=== PATIENT | female | born 1950 | race Caucasian/White ===

== ENCOUNTER → 2018-02-24 09:16 | Outpatient (CLI) | payer OTHER, MEDICARE, SELFPAY ==
--- NOTE | 2018-02-24 09:24 | XR_ITS ---
XR hand RT min 3V HISTORY: Right hand pain ITS.REASON: Trigger Finger ORDERING PHYSICIAN: Mario Alberto Wilder MD PATIENT AGE: 67 years COMPARISON: None FINDINGS: No fracture or dislocation. No calcified soft tissue lesions. There are mild osteoarthritic changes at the DIP of the second and third digits. IMPRESSION: No acute finding. 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
== END ==
PROVIDERS: PCP Family Medicine; Visit Provider Orthopaedic Surgery
DX: M79.641 Pain in right hand (principal)
CPT/HCPCS: 73130

== ENCOUNTER → 2018-05-11 10:12 | Outpatient (CLI) | payer OTHER, MEDICARE, SELFPAY ==
--- NOTE | 2018-05-11 10:18 | XR_ITS ---
XR ankle LT min 3V HISTORY: Recent fall with injury and pain, prior surgery ITS.REASON: LEFT ANKLE INJURY ORDERING PHYSICIAN: Mario Alberto Wilder MD PATIENT AGE: 67 years Comparison: 03/12/2017 FINDINGS: Prior ORIF with lateral bone plate at the fibula and 2 screws within the medial malleolus region. There remains good alignment with no evidence of fracture or dislocation. No hardware malfunction. Soft tissue swelling is present at the lateral malleolus region. IMPRESSION: 1. Soft tissue swelling laterally. 2. Prior ORIF with no significant change
--- NOTE | 2018-05-11 10:23 | XR_ITS ---
XR knee LT 4V HISTORY: Fall with pain and swelling ITS.REASON: left knee pain ORDERING PHYSICIAN: Mario Alberto Wilder MD PATIENT AGE: 67 years COMPARISON: 05/12/2017 FINDINGS: There has been prior total knee replacement with good alignment. No significant change with no acute finding. IMPRESSION: Prior total knee replacement with no acute finding
== END ==
PROVIDERS: PCP Family Medicine; Visit Provider Orthopaedic Surgery
DX: S99.912A Unspecified injury of left ankle, initial encounter (principal); M25.562 Pain in left knee
CPT/HCPCS: 73564; 73610

== ENCOUNTER 2018-07-08 09:30 | Outpatient (RCR) | payer OTHER, MEDICARE, SELFPAY ==
--- NOTE | 2018-05-12 14:07 | HMH.PTOPWND ---
Rehab Outpt Wound Evaluation Rehab OP Wound Evaluation Start: 05/12/18 13:16 Freq: Status: Active Protocol: Document 05/12/18 13:58 PHORHAL (Rec: 05/12/18 14:07 PHORNE [id number]) Electronically Signed By Ric Denise, PT 05/12/18 13:58 Subjective/History History History Pt is 67 yowf who presents ~ 4 days S/P fall at home with resulting left ankle sprain, edema, and ecchymosis. She reports mild/moderate pain with mobility and expected tenderness to palpation. SHe has hx of prior left ankle ORIF and left TKA. She also has PMH of DM-II, osteoporosis , and HTN. Subjective Subjective Significant edema collection surrounding the left lateral malleolus. Lymphedema Eval Classification of Lymphedema Post Traumatic Lymphedema Yes: ankle sprain Stemmer's sign Stemmer's Sign no Pain Scale Pain Scale (0-10) 5 Affected Extremities Areas Affected by Lymphedema/Edema Left Lower Extremity Manual Lymphatic Drainage Treatment Area MLD Treatment Area Left Lower Extremity Wound Problems/Impairments Impairments Problems/Impairmments Palpation Tenderness Impaired Walking Increased Edema Subjective C/O Pain Impaired Self Care/Self Management Prognosis Rehab Potential Good Clinical Impression Consistent with Diagnosis Yes Short Term Goals Number of Weeks 4 Decreased Palpation Tenderness Yes: to min Improve Gait Pattern with Assistive Yes Device Decrease Subjective C/O Pain Yes: 3/10 Decrease Girth Measurments by (cm) Yes: by 5 cm Financial Reporting Advisor Goals Number of Weeks 8 Decreased Palpation Tenderness Yes: to none Decrease Subjective C/O Pain Yes: 1/10 Patient to be Ind w/ HEP Yes Decrease Girth Measurments by (cm) Yes: by 15 cm Outpatient Therapy Plan of Care Treatment Plan May Include Therapeutic Exercise Including Home Yes Exercise Program Manual Therapy Techniques Yes Neuromuscular Re-education Yes Thermal Modalities Yes Electrical Stimulation Yes Ultrasound/Phonophoresis Yes Iontophoresis Yes Orthotics/Bracing/Splinting Yes Massage Yes Manual Lymphatic Drainage Yes Eval/Re-Eval
== END 2018-07-08 09:35 | disposition home or self-care (01) ==
LOC: PT 09:30
PROVIDERS: Family Provider Family Medicine; PCP Family Medicine; Visit Provider Orthopaedic Surgery
DX: S93.402A Sprain of unspecified ligament of left ankle, initial encounter (principal)
CPT/HCPCS: 97110; 97112; 97140; 97162; 97760

== ENCOUNTER → 2018-07-08 10:04 | Outpatient (CLI) | payer OTHER, MEDICARE, SELFPAY ==
[2018-07-08 10:42] LABS: Basophils # 0.1 K/mm3 (0-0.2); Basophils % 1.5 % (0.1-2.0); Eosinophils # 0.6 K/mm3 (0.0-0.4); Eosinophils % 7.5 % (0.1-12.0); Hemoglobin 15.5 g/dL (12.2-16.2); Lymphocytes # 2.2 K/mm3 (0.7-4.5); Lymphocytes % 26.9 % (10-50); Mean Corpuscular HGB Conc 32.4 g/dL (31.8-35.4); Mean Corpuscular Hemoglobin 31.9 pg (27.0-31.2); Mean Corpuscular Volume 98.4 fl (81-99); Mean Platelet Volume 7.4 fl (7.4-10.4); Monocytes # 0.3 K/mm3 (0.1-1.0); Neutrophils % 60.2 % (37.0-80.0); Platelet Count 345 K/mm3 (142-424); Red Blood Count 4.87 M/mm3 (4.20-5.40); Red Cell Distribution Width 14.3 % (11.5-17.5); White Blood Count 8.3 K/mm3 (4.8-10.8)
[2018-07-08 12:48] LABS: Anion Gap 15.7 mEq/L (5-15); Blood Urea Nitrogen 17 mg/dL (7-18); Calcium 9.8 mg/dL (8.5-10.1); Carbon Dioxide 27 mmol/L (21.0-32.0); Chloride 100 mmol/L (98-107); Creatinine,Serum 0.79 mg/dL (0.55-1.02); Estimated Glomerular Filt Rate 72 ml/min (>60); GFR (African American) 87 ML/MIN (>60); Glucose 159 mg/dL (74-106); Potassium 3.7 mmoL/L (3.5-5.1); Sodium 139 mmol/L (136-145)
== END ==
PROVIDERS: PCP Family Medicine; Visit Provider Orthopaedic Surgery
DX: Z01.818 Encounter for other preprocedural examination (principal); M79.641 Pain in right hand
CPT/HCPCS: 36415; 80048; 85025; 93005

== ENCOUNTER → 2019-03-30 09:42 | Outpatient (CLI) | payer OTHER, MEDICARE, SELFPAY ==
--- NOTE | 2019-03-30 10:12 | XR_ITS ---
XR chest 2V HISTORY: ITS.REASON: HTN, DM, PRE OP ORDERING PHYSICIAN: Naeem Robins MD PATIENT AGE: 68 years COMPARISON: 11/22/2016 FINDINGS: The cardiomediastinal silhouette pulmonary vascularity are within normal limits. The lungs are clear without infiltrates, suspicious nodules, or pleural effusions. There is moderate to severe wedging involving the T11 vertebral body similar to the previous exam. Postsurgical changes left shoulder IMPRESSION: No change with no acute finding
[2019-03-30 11:13] LABS: Basophils # 0.1 K/mm3 (0-0.2); Basophils % 1.8 % (0.1-2.0); Eosinophils # 0.6 K/mm3 (0.0-0.4); Eosinophils % 8.1 % (0.1-12.0); Hematocrit 48.1 % (37.0-47.0); Hemoglobin 15.8 g/dL (12.2-16.2); Lymphocytes # 2.5 K/mm3 (0.7-4.5); Lymphocytes % 34.7 % (10-50); Mean Corpuscular HGB Conc 32.7 g/dL (31.8-35.4); Mean Corpuscular Hemoglobin 32.3 pg (27.0-31.2); Mean Corpuscular Volume 98.8 fl (81-99); Mean Platelet Volume 7.6 fl (7.4-10.4); Monocytes # 0.4 K/mm3 (0.1-1.0); Monocytes % 5.9 % (1.7-9.3); Neutrophils # 3.5 K/mm3 (1.8-7.8); Neutrophils % 49.4 % (37.0-80.0); Platelet Count 352 K/mm3 (142-424); Red Blood Count 4.87 M/mm3 (4.20-5.40); Red Cell Distribution Width 14.2 % (11.5-17.5); White Blood Count 7.1 K/mm3 (4.8-10.8)
[2019-03-30 12:08] LABS: Anion Gap 11.3 mEq/L (5-15); Blood Urea Nitrogen 12 mg/dL (7-18); Calcium 9.7 mg/dL (8.5-10.1); Carbon Dioxide 30 mmol/L (21.0-32.0); Chloride 104 mmol/L (98-107); Creatinine,Serum 0.76 mg/dL (0.55-1.02); Estimated Glomerular Filt Rate 75 ml/min (>60); GFR (African American) 91 ML/MIN (>60); Glucose 116 mg/dL (74-106); Potassium 4.3 mmoL/L (3.5-5.1); Sodium 141 mmol/L (136-145)
[2019-03-30 14:50] LABS: Hemoglobin A1C 6.4 % (0.0-7.0)
== END ==
PROVIDERS: Visit Provider Orthopaedic Surgery
DX: Z01.818 Encounter for other preprocedural examination (principal); G56.01 Carpal tunnel syndrome, right upper limb
CPT/HCPCS: 36415; 71046; 80048; 83036; 85025; 93005

== ENCOUNTER → 2019-05-11 13:56 | Outpatient (CLI) | payer OTHER, MEDICARE, SELFPAY ==
[2019-05-11 14:30] LABS: Basophils # 0.1 K/mm3 (0-0.2); Basophils % 1.4 % (0.1-2.0); Eosinophils # 0.6 K/mm3 (0.0-0.4); Eosinophils % 7.1 % (0.1-12.0); Hematocrit 47.1 % (37.0-47.0); Hemoglobin 15.5 g/dL (12.2-16.2); Lymphocytes % 33.5 % (10-50); Mean Corpuscular Hemoglobin 32.7 pg (27.0-31.2); Mean Corpuscular Volume 99.1 fl (81-99); Mean Platelet Volume 7.4 fl (7.4-10.4); Monocytes # 0.4 K/mm3 (0.1-1.0); Monocytes % 4.3 % (1.7-9.3); Neutrophils # 4.8 K/mm3 (1.8-7.8); Neutrophils % 53.6 % (37.0-80.0); Platelet Count 380 K/mm3 (142-424); Red Blood Count 4.75 M/mm3 (4.20-5.40); Red Cell Distribution Width 13.9 % (11.5-17.5)
[2019-05-11 15:12] LABS: Anion Gap 12.2 mEq/L (5-15); Blood Urea Nitrogen 11 mg/dL (7-18); Carbon Dioxide 31 mmol/L (21.0-32.0); Chloride 101 mmol/L (98-107); Creatinine,Serum 0.76 mg/dL (0.55-1.02); Estimated Glomerular Filt Rate 75 ml/min (>60); GFR (African American) 91 ML/MIN (>60); Glucose 107 mg/dL (74-106); Potassium 4.2 mmoL/L (3.5-5.1); Sodium 140 mmol/L (136-145)
== END ==
PROVIDERS: Visit Provider Orthopaedic Surgery
DX: Z01.818 Encounter for other preprocedural examination (principal); G56.02 Carpal tunnel syndrome, left upper limb
CPT/HCPCS: 36415; 80048; 85025

== ENCOUNTER 2019-05-27 11:00 | Outpatient (RCR) | payer OTHER, MEDICARE, SELFPAY ==
--- NOTE | 2019-05-17 09:00 | HMH.OTOPEV ---
OT Inpatient Evaluation Rehab OT Outpatient Eval Start: 05/17/19 08:44 Freq: Status: Active Protocol: Document 05/17/19 08:45 TFRY (Rec: 05/17/19 08:56 TFRY [id number]) Electronically Signed By Margi Churchill, OT 05/17/19 08:45 Outpatient Therapy Subjective History Subjective History This is a 68 year old right handed female referred to occupational therapy after under going a carpal tunnel release; trigger finger release on digits #3 & 4; excision of dupuytren's contracture on right hand on . Patient reported that she had had a carpal tunnel release done 20 years ago on same hand and that trigger finger was getting worse. Chief Complaint Pain,Stiff,Decreased Filenet Architect Strength Symptom Type Dull Symptoms Relieved By Shaking Prior Functional Limitations None Current Functional Limitations None Symptom Description Intermittent Level of pain today (0-10) 0 Pain scale - at its best (0-10) 5 Pain scale - at its worst (0-10) 0 Wrist/Hand Eval Wrist Range of Motion Right Wrist ROM Reason Not Measured Within Functional Limits Wrist Manual Muscle Testing Right Wrist Extension Strength Grade 3+ Fair+ Wrist Flexion Strength Grade 3+ Fair+ Wrist Radial Deviation Strength Grade 3+ Fair+ Wrist Ulnar Deviation Strength Grade 3+ Fair+ Filenet Architect/Pinch Strength Filenet Architect Strength Measurement (lbs) 16 Palmar Pinch (3-point) Ability Normal Performance Palmar Pinch (3-point) Strength 4 Measurement (lbs) Tip Pinch (2-point) Ability Normal Performance Tip Pinch (2-point) Strength Measurement 4 (lbs) Lateral Pinch Ability Normal Performance Lateral Pinch Strength Measurement (lbs) 5 OT Outpatient Assessment Impairments Problems/Impairments Impaired Strength,Subjective C /O Pain Prognosis Rehab Potential Good Clinical Impression Consistent with Diagnosis Yes Short Term Goals Number of Weeks 2 Increase Strength Yes: Right wrist strength-4-/5 ; pinch increase 2 lbs each; right machine ironer 18 lbs Decrease Subjective C/O Pain Yes: Pain in right hand wrist to 3 at worse Patient to be Ind w/ HEP Yes Patient to be Ind w/ Advanced HEP Yes Technical Engineer Goals Number of Weeks 4 Increa
== END 2019-05-27 11:05 | disposition home or self-care (01) ==
LOC: OT 11:00
PROVIDERS: Visit Provider Orthopaedic Surgery
DX: G56.01 Carpal tunnel syndrome, right upper limb (principal)
CPT/HCPCS: 97110; 97140; 97165

== ENCOUNTER → 2019-08-10 08:57 | Outpatient (CLI) | payer OTHER, MEDICARE, SELFPAY ==
--- NOTE | 2019-08-10 09:04 | XR_ITS ---
PROCEDURE: XR HAND LT MIN 3V CLINICAL INDICATION: left hand pain COMPARISON: [id number] XR hand RT min 3V from 02/24/2018 FINDINGS: No fracture or dislocation. Mild osteoarthritis of the 1st metacarpal-carpal junction as well as the radiocarpal junction and distal radial ulnar joint. IMPRESSION: Mild osteoarthritic change Dictated by: Rafael Sauer MD 08/10/2019 16:54 Electronically signed by Rafael Sauer MD in [place] 08/10/2019 16:54
--- NOTE | 2019-08-10 11:36 | ECG_ITS ---
APPROVED REPORT Exam: Resting ECG HR:78 bpm ECG Measurements Heart Rate 78 AXES SD 180 P 56 QRSd 82 QRS 18 QT 394 T 45 QTc 449 <Conclusion> Normal sinus rhythm Possible Anterior infarct, age undetermined Abnormal ECG Electronically signed by : Farrukh Fragoso, 08/10/2019 12:04:08
[2019-08-10 12:17] LABS: Basophils # 0.1 K/mm3 (0-0.2); Basophils % 1.7 % (0.1-2.0); Eosinophils # 0.4 K/mm3 (0.0-0.4); Eosinophils % 5.7 % (0.1-12.0); Hematocrit 49.5 % (37.0-47.0); Hemoglobin 16.1 g/dL (12.2-16.2); Lymphocytes # 2.1 K/mm3 (0.7-4.5); Lymphocytes % 28.6 % (10-50); Mean Corpuscular HGB Conc 32.4 g/dL (31.8-35.4); Mean Corpuscular Hemoglobin 31.8 pg (27.0-31.2); Mean Platelet Volume 8.7 fl (7.4-10.4); Monocytes # 0.3 K/mm3 (0.1-1.0); Monocytes % 3.8 % (1.7-9.3); Neutrophils # 4.3 K/mm3 (1.8-7.8); Neutrophils % 60.2 % (37.0-80.0); Platelet Count 375 K/mm3 (142-424); Red Blood Count 5.06 M/mm3 (4.20-5.40); Red Cell Distribution Width 13.4 % (11.5-17.5); White Blood Count 7.2 K/mm3 (4.8-10.8)
[2019-08-10 13:03] LABS: Hemoglobin A1C 6.4 % (0.0-7.0)
[2019-08-10 13:33] LABS: Anion Gap 14.6 mEq/L (5-15); Blood Urea Nitrogen 13 mg/dL (7-18); Calcium 9.2 mg/dL (8.5-10.1); Carbon Dioxide 31 mmol/L (21.0-32.0); Chloride 101 mmol/L (98-107); Creatinine,Serum 0.73 mg/dL (0.55-1.02); Estimated Glomerular Filt Rate 79 ml/min (>60); GFR (African American) 95 ML/MIN (>60); Glucose 129 mg/dL (74-106); Potassium 3.6 mmoL/L (3.5-5.1); Sodium 143 mmol/L (136-145)
== END ==
PROVIDERS: PCP Family Medicine; Visit Provider Orthopaedic Surgery
DX: Z01.818 Encounter for other preprocedural examination (principal); M79.642 Pain in left hand
CPT/HCPCS: 36415; 73130; 80048; 83036; 85025; 93005

== ENCOUNTER → 2019-09-21 10:38 | Outpatient (CLI) | payer MEDICARE, SELFPAY ==
[2019-09-21 11:27] LABS: Glucose,Fasting 111 mg/dL (60-105); Troponin I < 0.02 ng/ml (0.00-0.06)
== END ==
PROVIDERS: Visit Provider Family Medicine
DX: R07.9 Chest pain, unspecified (principal); E11.9 Type 2 diabetes mellitus without complications; Z79.84 Long term (current) use of oral hypoglycemic drugs
CPT/HCPCS: 36415; 82947; 84484

== ENCOUNTER → 2019-09-28 09:49 | Outpatient (CLI) | payer MEDICARE, SELFPAY ==
--- NOTE | 2019-09-28 09:54 | CA_ITS ---
APPROVED REPORT EXAM: Comprehensive 2D, Doppler, and color-flow Echocardiogram Aircraft Delivery Checker: Marleny Gonsalez RVT Ht: 5 ft 1 in Wt: 156lbs BSA: 1.70 BP: 129/73 mmHg Indications: Chest Pain, Diabetes, Hypertension,Epigastric pain 2D Dimensions LVOT 1.71 cm (M/F) 1.5-2.5 M-Mode Dimensions RVDd 2.54 cm (0.9-2.6) LVDd 5.12 cm (3.5-5.7) LVDs 3.61 cm (3.5-5.7) IVSd 0.38 cm (0.6-1.1) PWd 0.83 cm (0.6-1.1) EF (Teich) 56.10% FS 29.50% EDV (Teich) 124.90 mL ESV (Teich) 54.80 mL LV Diastology E/A Ratio 0.98 Mitral Valve MV A Velocity 63.00 (40-130 cm/s) Left Ventricle Left atrium is mildly enlarged, left ventricle is normal size, mild concentric left ventricular hypertrophy, visually estimated ejection fraction 55% with no regional wall motion abnormality. Diastolic parameters are inconclusive. Right Ventricle Right atrium and right ventricular normal size and contractility. Aortic Valve Aortic valve is minimally thickened and fibrosed. Mitral Valve Mitral valve has mild mitral calcification, there is no mitral stenosis. Tricuspid Valve Tricuspid valve is grossly normal, there is mild tricuspid regurgitation. Pulmonic Valve Pulmonic valve is poorly visualized. Great Vessels Aortic root is normal size. Pericardium No significant pericardial effusion noted. Conclusion 1. Mildly enlarged left atrium, normal left ventricular size, mild concentric left ventricular hypertrophy, visually estimated ejection fraction 55% with no regional wall motion abnormality, diastolic parameters are inconclusive. 2. Mild mitral and tricuspid regurgitation. 3. No significant pericardial effusion noted. Electronically signed by : Clemente Moya, 09/29/2019 14:43:42
== END ==
PROVIDERS: PCP Family Medicine; Visit Provider Family Medicine
DX: R07.9 Chest pain, unspecified (principal); R10.13 Epigastric pain
CPT/HCPCS: 93306

== ENCOUNTER → 2020-01-11 12:15 | Outpatient (CLI) | payer MEDICARE, SELFPAY ==
--- NOTE | 2020-01-11 | XR_ITS ---
PROCEDURE: XR CHEST 2V CLINICAL HISTORY: Pneumonia, shortness of air COMPARISON: CXR CHEST(2 VIEWS-NOT PORTABLE) from 11/04/2015 CXR CHEST(2 VIEWS-NOT PORTABLE) from 11/22/2016 CT ANGIO CHEST from 09/20/2019 XR CHEST 2V from 09/20/2019 FINDINGS: The cardiomediastinal silhouette and pulmonary vascularity are within normal limits. There are increased markings in the right lower lobe which may be due to an area of atelectasis or infiltrate. Patchy density is also noted in the anterior clear space suggesting an area of infiltrate possibly within The lingula. IMPRESSION: Patchy atelectasis or infiltrate infiltrate in the right lung base and in the anterior clear space possibly in the lingula Dictated by: Rafael Sauer MD 01/11/2020 12:53 Electronically signed by Rafael Sauer MD in [place] 01/11/2020 12:53
== END ==
PROVIDERS: PCP Family Medicine; Visit Provider Family Medicine
DX: J18.9 Pneumonia, unspecified organism (principal)
CPT/HCPCS: 71046

== ENCOUNTER → 2020-01-31 11:40 | Outpatient (CLI) | payer MEDICARE, SELFPAY ==
--- NOTE | 2020-01-31 11:55 | XR_ITS ---
PROCEDURE: XR CHEST PORTABLE CLINICAL HISTORY: COVID Nonproductive cough, no fever COMPARISON: CXR CHEST(2 VIEWS-NOT PORTABLE) from 11/22/2016 CT ANGIO CHEST from 09/20/2019 XR CHEST 2V from 09/20/2019 XR CHEST 2V from 01/11/2020 FINDINGS: The cardiomediastinal silhouette and vascularity are normal. Is minimal hazy opacity at the left base and left costophrenic angle which could represent atelectasis or a small pneumonic infiltrate. Otherwise the left lung field is clear and right lung field is clear. There is no pleural fluid. The most recent chest film 01/11/2020 showed a subtle area of atelectasis at the left base. IMPRESSION: Possible minimal infiltrate left lung base versus atelectasis, otherwise unremarkable chest Dictated by: Dr. Jeremy Echavarria MD 01/31/2020 15:[address] Jeremy Echavarria MD in [place] 01/31/2020 15:13
[2020-01-31 13:53] LABS: Coronavirus 19 IgG Antibody Negative (Negative); Coronavirus 19 IgM Antibody Negative (Negative)
== END ==
PROVIDERS: PCP Family Medicine; Visit Provider Emergency Medicine
DX: Z01.84 Encounter for antibody response examination (principal); R05 Cough
CPT/HCPCS: 36415; 71045; 86328

== ENCOUNTER → 2020-05-08 10:41 | Outpatient (CLI) | payer MEDICARE, SELFPAY ==
[2020-05-08 11:15] VITALS: PULSE 78; PULSE 83
== END ==
PROVIDERS: PCP Family Medicine; Visit Provider Family Medicine
DX: R06.02 Shortness of breath (principal)
CPT/HCPCS: 94060; 94640

== ENCOUNTER → 2020-06-08 09:39 | Outpatient (CLI) | payer MEDICARE, SELFPAY | PROVIDERS: PCP Family Medicine; Visit Provider Family Medicine | DX: Z20.828 Contact with and (suspected) exposure to other viral communicable diseases (principal); U07.1 COVID-19 | CPT/HCPCS: U0003 ==

== ENCOUNTER → 2020-06-27 10:08 | Outpatient (CLI) | payer MEDICARE, SELFPAY ==
[2020-06-27 20:07] LABS: Covid-19 Nasal PCR Sendout Lex POSITIVE
== END ==
PROVIDERS: PCP Family Medicine; Visit Provider Family Medicine
DX: Z20.828 Contact with and (suspected) exposure to other viral communicable diseases (principal); U07.1 COVID-19
CPT/HCPCS: U0004

== ENCOUNTER 2020-07-10 09:30 | Emergency (ER) | payer MEDICARE, SELFPAY ==
[2020-07-10] VITALS (15 sets, daily range): BP systolic 145–179; BP diastolic 80–100; PULSE 78–90; RESP 16–19; TEMP 37.1; O2SAT 90–100; BMI 28.3
--- NOTE | 2020-07-10 10:25 | ECG_ITS ---
APPROVED REPORT Exam: Resting ECG HR:87 bpm ECG Measurements Heart Rate 87 AXES WA 196 P 49 QRSd 84 QRS 121 QT 392 T 18 QTc 471 Conclusion Normal sinus rhythm Left posterior fascicular block Abnormal ECG Electronically signed by : Farrukh Fragoso, 07/10/2020 19:46:48
--- NOTE | 2020-07-10 10:44 | HMH.EDGENADL ---
ED Disposition Clinical Impression: Viral syndrome Disposition: Home, Self-Care Condition on Discharge: Good Instructions: DI for Diarrhea and Traveler's Diarrhea -- Adult, DI for Diarrhea and Traveler's Diarrhea -- Child, DI for Nausea -- Adult, DI for Nausea -- Child Additional Instructions: You were seen on an emergency basis. It is very important that you follow up with your primary care provider and/or specialist as we discussed within 2 days. All labs and imaging were obtained and interpreted here to rule out life threatening emergencies, but your final results should be reviewed by your primary doctor at your follow up appointment. Please return to the emergency department if any of your symptoms worsen, or if they do not improve as we discussed. Prescriptions: Ondansetron [Zofran 4mg ODT] 4 mg PO Q6 PRN #9 tab.rapdis PRN Reason: Nausea Transmission Status: Pending to [id number] Referrals: Stas Sher MD [Primary Care Provider] - - Critical Care Critical Care Time: No Attestation: On 07/10/20, the high probability of a clinically significant, sudden or life threatening deterioration of the following system(s) required my full and direct attention, intervention and personal management. The time I documented below is in addition to time spent performing reported procedures but includes the following listed in this critical care notation. Medical Decision Making - Medical Records Medical records reviewed: Yes: I reviewed the patient's medical records. - Brayan Inquiry Pt receiving controlled substance: No Vital Signs: 07/10/20 09:31 07/10/20 09:42 07/10/20 10:27 Temperature 98.7 F Temperature Source Oral Pulse Rate [Right] 90 90 90 Respiratory Rate 16 Blood Pressure [Right Arm] 178/94 H 178/94 H 172/93 H Blood Pressure Mean [Right Arm] 122 122 119 Blood Pressure Source [Right Arm] Automatic Cuff Automatic Cuff Automatic Cuff Blood Pressure Position [Right Arm] Sitting Sitting Sitting 02 Sat by Pulse Oximetry 98 94 L 93 L Oxygen Delivery Method Room Air Room Air Room Air Oxygen Flow Rate (LPM) 07/10/20 10:30 07/10/20 11:07 07/10/20 11:30 Temperature Temperature Source Pulse Rate [Right] 89 86 86 Respiratory Rate Blood Pressure [Right Arm] 176/87 H 163/85 H 168/81 H Blood Pressure Mean [Right Arm] 116 111 110 Blood Pressure Source [Right Arm] Automatic Cuff Automatic Cuff Blood Pressure Position [Right Arm] Sitting Sitting Sitting 02 Sat by Pulse Oximetry 94 L 95 93 L Oxygen Delivery Method Room Air Room Air Room Air Oxygen Flow Rate (LPM) 07/10/20 12:00 07/10/20 12:30 07/10/20 13:00 Temperature Temperature Source Pulse Rate [Right] 84 83 84 Respiratory Rate Blood Pressure [Right Arm] 163/83 H 165/85 H 167/87 H Blood Pressure Mean [Right Arm] 109 111 113 Blood Pressure Source [Right Arm] Automatic Cuff Automatic Cuff Automatic Cuff Blood Pressure Position [Right Arm] Sitting Sitting Sitting 02 Sat by Pulse Oximetry 90 L 99 99 Oxygen Delivery Method Room Air Nasal Cannula Nasal Cannula Oxygen Flow Rate (LPM) 3 3 07/10/20 13:30 07/10/20 14:10 07/10/20 14:30 Temperature Temperature Source Pulse Rate [Right] 83 84 82 Respiratory Rate Blood Pressure [Right Arm] 179/91 H 173/80 H 156/87 H Blood Pressure Mean [Right Arm] 120 111 110 Blood Pressure Source [Right Arm] Automatic Cuff Automatic Cuff Automatic Cuff Blood Pressure Position [Right Arm] Sitting Sitting Sitting 02 Sat by Pulse Oximetry 99 97 100 Oxygen Delivery Method Nasal Cannula Nasal Cannula Nasal Cannula Oxygen Flow Rate (LPM) 3 2 3 07/10/20 15:00 Temperature Temperature Source Pulse Rate [Right] 78 Respiratory Rate Blood Pressure [Right Arm] 145/100 H Blood Pressure Mean [Right Arm] 115 Blood Pressure Source [Right Arm] Automatic Cuff Blood Pressure Position [Right Arm] Sitting 02 Sat by Pulse Oximetry 100 Oxygen Delivery Method Nasal Cannula Oxygen Flow Rat
[2020-07-10 11:00] LABS: Microscopic, Urine URINE MICROSCOPIC (MICROSCOPIC)
[2020-07-10 11:02] LABS: Appearance,Urine CLEAR (Clear); Bilirubin,Urine Negative (Negative); Blood, Urine Negative (Negative); Color,Urine YELLOW (Yellow); Glucose,Urine (UA) Negative (Negative); Ketones,Urine Negative (Negative); Leukocyte Esterase,Urine Negative (Negative); Nitrate,Urine Negative (Negative); PH,Urine 7.5 (5.0-8.5); Protein,Urine Negative (Negative); Urobilinogen,Urine 0.2 EU/dl (0.2)
[2020-07-10 11:14] LABS: Bacteria,Urine 1+ /lpf; Squamous Epithelial Cell,Urine Occasional #/hpf (0-5); WBC,Urine Occasional #/hpf (0-3)
[2020-07-10 11:23] LABS: Lipase 61 U/L (23-300)
[2020-07-10 11:38] LABS: Troponin I < 0.01 ng/ml (0.00-0.034)
[2020-07-10 12:04] LABS: Chloride 99 mmol/L (98-107)
[2020-07-10 12:05] LABS: Basophils # 0.1 K/mm3 (0-0.2); Basophils % 1.5 % (0.1-2.0); Eosinophils # 0.4 K/mm3 (0.0-0.4); Eosinophils % 6.1 % (0.1-12.0); Hematocrit 53.5 % (37.0-47.0); Hemoglobin 17.2 g/dL (12.2-16.2); Lymphocytes # 1.8 K/mm3 (0.7-4.5); Lymphocytes % 25.8 % (10-50); Mean Corpuscular HGB Conc 32.1 g/dL (31.8-35.4); Mean Corpuscular Hemoglobin 31.2 pg (27.0-31.2); Mean Corpuscular Volume 97.2 fl (81-99); Mean Platelet Volume 8.4 fl (7.4-10.4); Monocytes # 0.3 K/mm3 (0.1-1.0); Monocytes % 4.8 % (1.7-9.3); Neutrophils # 4.3 K/mm3 (1.8-7.8); Neutrophils % 61.8 % (37.0-80.0); Platelet Count 362 K/mm3 (142-424); Red Blood Count 5.51 M/mm3 (4.20-5.40); Red Cell Distribution Width 14.8 % (11.5-17.5); White Blood Count 6.9 K/mm3 (4.8-10.8)
[2020-07-10 12:05] LABS: Potassium 4.1 mmoL/L (3.5-5.1); Sodium 139 mmol/L (136-145)
[2020-07-10 12:07] LABS: Alanine Aminotransferase 27 U/L (12-78); Albumin Level 4.3 g/dl (3.5-5.0); Albumin/Globulin Ratio 1.3 (1.1-1.8); Alkaline Phosphatase 76 U/L (38-126); Anion Gap 12.1 mEq/L (5-15); Aspartate Amino Transferase 44 U/L (14-36); Bilirubin,Total 0.7 mg/dl (0.2-1.3); Blood Urea Nitrogen 11 mg/dl (7-17); Calcium 9.5 mg/dl (8.4-10.2); Carbon Dioxide 32 mmol/L (22.0-30.0); Creatinine Clearance Estimated 55 mL/min (50-200); Estimated Glomerular Filt Rate 99 ml/min (>60); GFR (African American) 119 ML/MIN (>60); Globulin 3.2 g/dL (1.3-3.2); Glucose 106 mg/dl (74-100); Total Protein,Serum 7.5 g/dl (6.3-8.2)
--- NOTE | 2020-07-10 14:46 | PC.NURSE ---
2nd troponin drawn and to lab for resulting.
[2020-07-10 15:20] LABS: Troponin I < 0.01 ng/ml (0.00-0.034)
[2020-07-11 21:21] LABS: Covid-19 Nasal PCR Sendout Lex Not Detected
== END 2020-07-10 15:40 | disposition home or self-care (01) ==
PROVIDERS: Emergency Provider Physician Assistant; PCP Family Medicine
DX: Z20.828 Contact with and (suspected) exposure to other viral communicable diseases (principal); B34.9 Viral infection, unspecified; I10 Essential (primary) hypertension; E11.9 Type 2 diabetes mellitus without complications; Z88.0 Allergy status to penicillin; M81.0 Age-related osteoporosis without current pathological fracture
CPT/HCPCS: 80053; 81001; 83690; 84484; 85025; 93005; 96365; 96375; 99283; J2405; U0004

== ENCOUNTER → 2020-12-12 11:14 | Outpatient (CLI) | payer MEDICARE, SELFPAY ==
--- NOTE | 2020-12-12 11:20 | XR_ITS ---
PROCEDURE: XR ANKLE RT MIN 3V CLINICAL INDICATION: ACUTE RT ANKLE PAIN Pain and swelling following injury COMPARISON: CR ANKR3 ANKLE-RT-3 VIEWS from 09/12/2015 CR ANKL3 ANKLE-LT-3 VIEWS from 01/07/2017 CR ANKL3 ANKLE-LT-3 VIEWS from 02/12/2017 CR ANKL3 ANKLE-LT-3 VIEWS from 03/12/2017 CR ANKCMLT XR ankle LT min 3V from 05/11/2018 FINDINGS: There is a transverse lucency at the tip of the lateral malleolus. There was however fracture noted at this region on previous study of 09/12/2015. Lucency is present at the distal fibula medially possibly related to indentation of the bone at this area versus a cystic lesion. Small calcaneal spur. There is mild soft tissue swelling laterally. IMPRESSION: No definite acute fracture. Lucency at the tip of the lateral malleolus suspected to be an old fracture with possible cystic lesion medially at the distal fibula. Dictated by: Rafael Sauer MD 12/12/2020 13:32 Rafael Sauer MD in [place] 12/12/2020 13:32
== END ==
PROVIDERS: PCP Family Medicine; Visit Provider Family Medicine
DX: M25.571 Pain in right ankle and joints of right foot (principal)
CPT/HCPCS: 73610

== ENCOUNTER 2021-07-11 14:26 | Emergency (ER) | payer MEDICARE, SELFPAY ==
[2021-07-11 14:57] VITALS: BP 187/94; PULSE 109; RESP 19; TEMP 36.8; O2SAT 95; BMI 29.5
--- NOTE | 2021-07-11 15:42 | HMH.EDGENADL ---
ED Disposition Clinical Impression: Laceration of left leg Qualifiers: Encounter type: initial encounter Qualified Code(s): S81.812A - Laceration without foreign body, left lower leg, initial encounter Abrasion of left forearm Qualifiers: Encounter type: initial encounter Qualified Code(s): S50.812A - Abrasion of left forearm, initial encounter Disposition: Home, Self-Care Condition on Discharge: Good Instructions: DI for Laceration Repair Additional Instructions: Keflex as prescribed. Tylenol or ibuprofen as needed for pain. Additional instructions for LACERATION: Clean the wound daily with soap and water. You may shower. Apply a thin film of antibiotic ointment such as neosporin or triple antibiotic after showering and apply a bandage. Avoid submerging the wound, no swimming. See your primary care physician or return to the [facility] in 10 days for suture removal. The [facility] is open 9AM to 9 PM, 7 days a week. Return if any signs of infection including increasing pain, pus drainage, swelling, redness, red streaks, or fever. Prescriptions: cephALEXin [cephALEXin 500mg capsule*] 500 mg PO Q6H #28 cap Transmission Status: Pending to [id number] Referrals: Stas Sher MD [Primary Care Provider] - - Critical Care Critical Care Time: No Attestation: On 07/11/21, the high probability of a clinically significant, sudden or life threatening deterioration of the following system(s) required my full and direct attention, intervention and personal management. The time I documented below is in addition to time spent performing reported procedures but includes the following listed in this critical care notation. Medical Decision Making - Brayan Inquiry Pt receiving controlled substance: No Vital Signs: 07/11/21 14:57 Temperature 98.3 F Temperature Source Oral Pulse Rate [Right Radial] 109 H Respiratory Rate 19 Blood Pressure [Right Arm] 187/94 H Blood Pressure Mean [Right Arm] 125 Blood Pressure Source [Right Arm] Automatic Cuff Blood Pressure Position [Right Arm] Sitting 02 Sat by Pulse Oximetry 95 Oxygen Delivery Method Room Air Orders (Tests/Meds): ED MEDICATIONS Discontinued Medications Generic Name Dose Route Start Last Admin Trade Name Freq PRN Reason Stop Dose Admin Cephalexin HCl 500 mg 07/11/21 15:49 07/11/21 15:58 Cephalexin 500mg Capsule PO 07/11/21 15:50 500 mg ONCE ONE Administration Lidocaine/Epinephrine 20 ml 07/11/21 15:50 Lidocaine 1% W/Epi 1:100,000 20ml Vial SQ 07/11/21 15:51 ONCE ONE Tetanus/Diphtheria Toxoids 0.5 ml 07/11/21 15:48 07/11/21 15:56 Tetanus-Diphth Toxoid, Adult 0.5ml Syr IM 07/11/21 15:49 0.5 ml .ONCE ONE Administration General Adult HPI - General Chief complaint: Wound/Laceration Stated complaint: AO 1111, left leg and arm wounds Time Seen by Provider: 07/11/21 15:42 Mode of Arrival: Ambulatory Limitations: No Limitations Description of Symptoms (Recalled from ER Triage Doc. by RN): Pt stated that she was bring in her plants that were outside for the winter and she tripped over a stump. She has a laceration on her left [place] and a cut on her left forearm. She stated that she did not hit her head. She takes a baby aspirin. She has a hx of diabetes. - History of Present Illness HPI narrative: Tripped over a stump and cut her left [place]. Also has a small skin wound on her left forearm. Last tetanus immunization is unknown. She is diabetic. She is able to walk on her left leg without difficulty. - Related Data Home Medications Medication Instructions Recorded Confirmed amitriptyline 10 mg tablet 10 mg PO QHS 02/24/18 12/25/20 calcium carbonate 600 mg calcium 600 mg PO BID tab 02/24/18 12/25/20 (1,500 mg) tablet hydrochlorothiazide 25 mg tablet 25 mg PO QAM 02/24/18 12/25/20 metoprolol tartrate 25 mg tablet 25 mg PO BID 02/24/18 12/25/20 paroxetine HCl 20 m
[2021-07-11 17:11] VITALS: BP 150/74; PULSE 70; RESP 16; TEMP 36.8; O2SAT 98
== END 2021-07-11 17:12 | disposition home or self-care (01) ==
PROVIDERS: Emergency Provider Emergency Medicine; PCP Family Medicine
DX: S81.812A Laceration without foreign body, left lower leg, initial encounter (principal); S50.812A Abrasion of left forearm, initial encounter; W01.10XA Fall on same level from slipping, tripping and stumbling with subsequent striking against unspecified object, initial encounter; Z23 Encounter for immunization; Y92.017 Garden or yard in single-family (private) house as the place of occurrence of the external cause; E11.9 Type 2 diabetes mellitus without complications; M81.0 Age-related osteoporosis without current pathological fracture
CPT/HCPCS: 12004; 90714; 99282

== ENCOUNTER → 2022-06-17 13:11 | Outpatient (CLI) | payer MEDICARE, SELFPAY ==
--- NOTE | 2022-06-17 13:17 | XR_ITS ---
FINAL REPORT CLINICAL HISTORY: shoulder x 6 months surgery 2000 FINDINGS: 3 views of the left shoulder were obtained. There is no acute fracture or dislocation. There is postoperative change in the region of the distal acromion. There are mild degenerative changes of the acromioclavicular and the glenohumeral joints. There are multiple chronic left rib fractures. There are no soft tissue abnormalities. IMPRESSION: Postoperative and degenerative changes. Reviewed, Interpreted and Dictated by Bi Florentino III, MD Transcribed by Lico Balderas Authenticated and [facility]
== END ==
PROVIDERS: PCP Family Medicine; Visit Provider Orthopaedic Surgery
DX: M25.512 Pain in left shoulder (principal)
CPT/HCPCS: 73030

== ENCOUNTER → 2022-06-30 09:13 | Outpatient (CLI) | payer MEDICARE, SELFPAY ==
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
== END ==
PROVIDERS: PCP Family Medicine; Visit Provider Orthopaedic Surgery
DX: M25.512 Pain in left shoulder (principal)
CPT/HCPCS: 73221

== ENCOUNTER 2022-09-22 10:00 | Outpatient (RCR) | payer MEDICARE, SELFPAY ==
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
== END 2022-09-22 10:05 | disposition home or self-care (01) ==
LOC: PT 10:00
PROVIDERS: PCP Family Medicine; Visit Provider Orthopaedic Surgery
DX: M79.602 Pain in left arm (principal); M75.42 Impingement syndrome of left shoulder; M75.22 Bicipital tendinitis, left shoulder
CPT/HCPCS: 97010; 97014; 97035; 97110; 97163; 97164; G0283

== ENCOUNTER 2022-12-21 08:53 | Emergency (ER) | payer MEDICARE, SELFPAY ==
[2022-12-21 08:56] VITALS: BP 182/88; PULSE 104; RESP 18; TEMP 36.5; O2SAT 96; BMI 32.1
[2022-12-21 09:10] VITALS: BP 182/88; PULSE 104; RESP 18; TEMP 36.5; O2SAT 96; BMI 32.1
--- NOTE | 2022-12-21 09:40 | EXP.UTC ---
Discharge Plan Disposition Patient Disposition: Home, Self-Care Condition: Good Prescriptions Prescriptions: New prednisone 10 mg tablet 10 mg PO DIRECTED 9 Days Qty: 21 0RF Rx Instructions: Take 4 tablets daily for 3 days, then take 2 tablets daily for 3 days, then take 1 tablet daily for 3 days, then stop. lisinopril 5 mg tablet 5 mg PO DAILY 30 Days Qty: 30 0RF No Action diclofenac sodium [Voltaren Arthritis Pain] 1 % gel 2 g topical QID Qty: 100 3RF Rx Instructions: apply 4 grams to shoulder BID celecoxib [Celebrex] 200 mg capsule 200 mg PO DAILY Qty: 30 2RF diclofenac sodium [Voltaren Arthritis Pain] 1 % gel 2 g topical QID Qty: 100 3RF Rx Instructions: apply to single elbow, wrist or hand; for hand includes palm/fingers/back of hand ropinirole 1 mg tablet 1 mg PO QHS amitriptyline 10 mg tablet 10 mg PO QHS hydrochlorothiazide 25 mg tablet 25 mg PO QAM calcium carbonate 600 mg calcium (1,500 mg) tablet 600 mg PO BID paroxetine HCl 20 mg tablet 20 mg PO ONCE metoprolol tartrate 25 mg tablet 25 mg PO BID metformin 500 MG tablet 500 mg PO TID gabapentin 300 MG capsule 300 mg PO TID aspirin 81 MG tablet,chewable 81 mg PO DAILY cephalexin 500 MG capsule 500 mg PO Q6H Qty: 28 0RF Referrals Follow up/Referrals: Stas Sher MD [Primary Care Provider] - See instructions Activity Restrictions/Add. Instructions Additional Instructions/Restrictions: Follow up with Dr. Sher in 24 to 48 hours. Discuss your blood pressure and whether or not he agrees with the lisinopril that we started today. Always follow the directions of you primary care provider over us. He knows your history better than we can learn in 1 visit. Take the medications as directed. Don't start the oral steroids until tomorrow, since you had the shot here today. Continue the steroid cream that Dr. Sher has prescribed you. Continue the ciprofloxacin that Dr. Sher has prescribed. Follow up with your regular doctor. GO TO THE ER FOR ANY WORSENING SYMPTOMS Clinical Impressions Clinical Impression: Allergic reaction Instructions Patient Instructions: DI for General Allergic Reactions Discharge ED Provider: Mario Alberto Song [facility] General Stated complaint: legs swollen with rash Mode of Arrival: Ambulatory Source of Information: Patient Limitations: No Limitations Time Seen by Provider: 12/21/22 09:25 Description of Symptoms (Recalled from Triage Doc. by RN): Pt reports bruising x3 weeks to LLE r/t dropping an iron skillet on her leg, reports has been on 2 rounds of antibiotics (cipro) and used hydrocortisone cream from pcp office. Pt reports rash and swelling to BLE for approx 1 week. Pt denies fevers HEENT Symptoms (Recalled from RN notes): No Resp Symptoms (Recalled from RN notes): No Skin Symptoms (Recalled from RN notes): Yes MS Symptoms (Recalled from RN notes): No Functional Status (Recalled from RN notes): WNL History of Present Illness Provider Complaint: Pt reports bruising x3 weeks to LLE r/t dropping an iron skillet on her leg, reports has been on 2 rounds of antibiotics (cipro) and used hydrocortisone cream from pcp office. Now she reports rash and swelling to BLE for approx 1 week. Pt denies fevers Related Data Home Medications Medication Instructions Recorded Confirmed amitriptyline 10 mg tablet 10 mg PO QHS sleep 02/24/18 11/04/22 calcium carbonate 600 mg calcium 600 mg PO BID Supplement 02/24/18 11/04/22 (1,500 mg) tablet hydrochlorothiazide 25 mg tablet 25 mg PO QAM Fluid 02/24/18 11/04/22 metoprolol tartrate 25 mg tablet 25 mg PO BID Heart disease 02/24/18 11/04/22 paroxetine HCl 20 mg tablet 20 mg PO ONCE mood 02/24/18 11/04/22 ropinirole 1 mg tablet 1 mg PO QHS RLS 02/24/18 11/04/22 aspirin 81 mg chewable tablet 81 mg PO DAILY Supplement 07/19/18 11/04/22 gabapentin 300 mg capsu
[2022-12-21 09:45] VITALS: BP 182/88; PULSE 104; RESP 18; TEMP 36.5; O2SAT 96
== END 2022-12-21 09:55 | disposition home or self-care (01) ==
LOC: ER 09:05 → UTC 09:05
PROVIDERS: Emergency Provider Nurse Practitioner Family; PCP Family Medicine
DX: T78.40XA Allergy, unspecified, initial encounter (principal); R21 Rash and other nonspecific skin eruption; R22.43 Localized swelling, mass and lump, lower limb, bilateral; E11.9 Type 2 diabetes mellitus without complications; I10 Essential (primary) hypertension; Z79.84 Long term (current) use of oral hypoglycemic drugs
CPT/HCPCS: 96372; 99212; 99214; G0463

== ENCOUNTER 2023-01-02 19:00 | Emergency (ER) | payer MEDICARE, SELFPAY ==
[2023-01-02 19:00] VITALS: BP 118/82; PULSE 125; RESP 20; TEMP 36.6; O2SAT 94; BMI 32.3
--- NOTE | 2023-01-02 19:06 | XR_ITS ---
PROCEDURE INFORMATION: Exam: XR Left Knee Exam date and time: 01/02/2023 7:04 PM Age: 72 years old Clinical indication: Injury or trauma; Fall TECHNIQUE: Imaging protocol: Radiologic exam of the left knee. Views: 3 views. COMPARISON: CR [id number] XR knee LT 4V 05/11/2018 10:41 AM FINDINGS: Bones/joints: Left total knee arthroplasty which appears intact redemonstrated. No evident loosening. No acute fracture evident. Soft tissues: Normal. IMPRESSION: No acute abnormality.
--- NOTE | 2023-01-02 19:24 | EXP.UTC ---
Discharge Plan Disposition Patient Disposition: Home, Self-Care Condition: Good Prescriptions Prescriptions: No Action diclofenac sodium [Voltaren Arthritis Pain] 1 % gel 2 g topical QID Qty: 100 3RF Rx Instructions: apply 4 grams to shoulder BID celecoxib [Celebrex] 200 mg capsule 200 mg PO DAILY Qty: 30 2RF diclofenac sodium [Voltaren Arthritis Pain] 1 % gel 2 g topical QID Qty: 100 3RF Rx Instructions: apply to single elbow, wrist or hand; for hand includes palm/fingers/back of hand ropinirole 1 mg tablet 1 mg PO QHS amitriptyline 10 mg tablet 10 mg PO QHS hydrochlorothiazide 25 mg tablet 25 mg PO QAM calcium carbonate 600 mg calcium (1,500 mg) tablet 600 mg PO BID paroxetine HCl 20 mg tablet 20 mg PO ONCE metoprolol tartrate 25 mg tablet 25 mg PO BID metformin 500 MG tablet 500 mg PO TID gabapentin 300 MG capsule 300 mg PO TID prednisone 10 mg tablet 10 mg PO DIRECTED 9 Days Qty: 21 0RF Rx Instructions: Take 4 tablets daily for 3 days, then take 2 tablets daily for 3 days, then take 1 tablet daily for 3 days, then stop. lisinopril 5 mg tablet 5 mg PO DAILY 30 Days Qty: 30 0RF aspirin 81 MG tablet,chewable 81 mg PO DAILY cephalexin 500 MG capsule 500 mg PO Q6H Qty: 28 0RF Referrals Follow up/Referrals: Stas Sher MD [Primary Care Provider] - See instructions Zohaib Nichols JR, MD [Physician] - See instructions Activity Restrictions/Add. Instructions Additional Instructions/Restrictions: Rest the extremity, apply ice for 15 minutes as tolerated three or four times per day for the next couple of days, Elevate the extremity as tolerated while you are resting. Take ibuprofen for pain (if you are allowed to take this). Follow up with Dr. Nichols or your orthopedic doctor of choice. I put in a referral but you need to call his office and schedule an appointment. Follow up with your regular doctor. GO TO THE ER FOR ANY WORSENING SYMPTOMS Clinical Impressions Clinical Impression: Contusion of knee, left Discharge ED Provider: Mario Alberto Song [facility] General Stated complaint: fell and hurt left knee Time Seen by Provider: 01/02/23 19:24 History of Present Illness Provider Complaint: She states that about 2 hours ago, she tripped and fell and came down on her left knee. She has had left knee pain since then. She states that when she walks on it or bears weight it makes her pain worse. She denies any other injury. Related Data Home Medications Medication Instructions Recorded Confirmed amitriptyline 10 mg tablet 10 mg PO QHS sleep 02/24/18 11/04/22 calcium carbonate 600 mg calcium 600 mg PO BID Supplement 02/24/18 11/04/22 (1,500 mg) tablet hydrochlorothiazide 25 mg tablet 25 mg PO QAM Fluid 02/24/18 11/04/22 metoprolol tartrate 25 mg tablet 25 mg PO BID Heart disease 02/24/18 11/04/22 paroxetine HCl 20 mg tablet 20 mg PO ONCE mood 02/24/18 11/04/22 ropinirole 1 mg tablet 1 mg PO QHS RLS 02/24/18 11/04/22 aspirin 81 mg chewable tablet 81 mg PO DAILY Supplement 07/19/18 11/04/22 gabapentin 300 mg capsule 300 mg PO TID Pain 05/23/19 11/04/22 metformin 500 mg tablet 500 mg PO TID Diabetes 05/23/19 11/04/22 Previous Rx's Medication Instructions Recorded cephalexin 500 mg capsule 500 mg PO Q6H #28 caps 07/11/21 diclofenac sodium 1 % topical gel 2 g topical QID shoulder pain and 07/17/22 (Voltaren Arthritis Pain) arthritis #100 grams celecoxib 200 mg capsule (Celebrex) 200 mg PO DAILY #30 caps 09/23/22 diclofenac sodium 1 % topical gel 2 g topical QID biceps pain #100 11/04/22 (Voltaren Arthritis Pain) grams lisinopril 5 mg tablet 5 mg PO DAILY 30 days #30 tabs 12/21/22 prednisone 10 mg tablet 10 mg PO DIRECTED 9 days #21 12/21/22 tabs Allergies Allergy/AdvReac Type Severity Reaction Status Date / Time Penicillins [PENICILLINS] Allergy Unknown I-HIVES Verified
[2023-01-02 20:00] VITALS: BP 118/82; PULSE 125; RESP 20; TEMP 36.6; O2SAT 94
== END 2023-01-02 20:03 | disposition home or self-care (01) ==
PROVIDERS: Emergency Provider Nurse Practitioner Family; PCP Family Medicine
DX: S80.02XA Contusion of left knee, initial encounter (principal); W01.0XXA Fall on same level from slipping, tripping and stumbling without subsequent striking against object, initial encounter; E11.9 Type 2 diabetes mellitus without complications; I10 Essential (primary) hypertension
CPT/HCPCS: 73562; 99212; 99213; G0463

== ENCOUNTER 2023-03-05 11:15 | Emergency (ER) | payer MEDICARE, SELFPAY ==
[2023-03-05] VITALS (8 sets, daily range): BP systolic 183–217; BP diastolic 80–110; PULSE 78–101; RESP 18; TEMP 36.6–36.9; O2SAT 94–97; BMI 30.2
--- NOTE | 2023-03-05 11:22 | ECG_ITS ---
APPROVED REPORT Exam: Resting ECG HR:94 bpm ECG Measurements Heart Rate 94 AXES IL 184 P 61 QRSd 86 QRS 41 QT 329 T 30 QTc 381 Conclusion SINUS RHYTHM Poor r wave progression - old finding ABNORMAL ECG UNCONFIRMED REPORT Electronically signed by : Farrukh Fragoso MD 03/05/2023 21:12:47
--- NOTE | 2023-03-05 11:40 | PC.NURSE ---
BETTE WILSON at
--- NOTE | 2023-03-05 11:42 | CT_ITS ---
FINAL REPORT TECHNIQUE: TECHNIQUE: Thin section axial CT with contrast with multiplanar reconstruction. This study was performed with techniques to keep radiation doses as low as reasonably achievable (ALARA). Individualized dose reduction techniques using automated exposure control or adjustments of mA and/or kV according to the patient's size were employed. CLINICAL HISTORY: HTN, diziness FINDINGS: CTA HEAD FINDINGS: No aneurysm is seen. Major intracranial vessels are patent without significant stenosis. . IMPRESSION: Unremarkable CTA NECK NASCET criteria and technique was utilized during interpretation. Aortic arch: Arch shows no significant narrowing. Great vessel origins are widely patent . Right carotid: No significant stenosis is seen of the cervical common or internal carotid artery Left carotid: No significant stenosis is seen of the cervical common or internal carotid artery . Vertebrals: Left vertebral artery is dominant. No significant stenosis is present . Limited images of the lung apices demonstrate patchy bilateral groundglass opacities worrisome for edema or multifocal pneumonia. IMPRESSION: No hemodynamically significant stenosis. Patchy bilateral groundglass opacities in the lung apices are worrisome for edema or multifocal pneumonia. Reviewed, Interpreted and Dictated by Bi Florentino III, MD Transcribed by Mary Ann Almazan Authenticated and [facility]
--- NOTE | 2023-03-05 11:42 | CT_ITS ---
FINAL REPORT CLINICAL HISTORY: htn, dizziness FINDINGS: Axial images of the head were obtained without contrast. Coronal reformatted images were also obtained. This study was performed with techniques to keep radiation doses as low as reasonably achievable (ALARA). Individualized dose reduction techniques using automated exposure control or adjustment of mA and/or kV according to the patient''s size were employed. There is generalized age-appropriate atrophy. Periventricular low-attenuation areas are seen consistent with mild chronic ischemic changes. There is no evidence of intracranial hemorrhage or mass. There is no evidence of acute infarct. There is no evidence of shift of the midline structures. No skull abnormality is seen on the bone window images. IMPRESSION: Atrophy and mild periventricular chronic ischemic changes. No acute intracranial abnormality identified. Reviewed, Interpreted and Dictated by Bi Florentino III, MD Transcribed by Mary Ann Almazan Authenticated and [facility]
--- NOTE | 2023-03-05 11:45 | HMH.EDGENADL ---
Discharge Plan Disposition Patient Disposition: Home, Self-Care Condition: Fair Prescriptions Prescriptions: New azithromycin 250 mg tablet See Rx Instructions .ROUTE .COMPLEX Qty: 6 0RF Rx Instructions: For 250 mg dose pack: take 500 mg today (day 1), then 250 mg for 4 days (days 2-5) cefdinir 300 mg capsule 300 mg PO BID 10 Days Qty: 20 0RF No Action ropinirole 1 mg tablet 1 mg PO QHS atorvastatin 10 mg tablet 10 mg PO DAILY levothyroxine 50 mcg tablet 50 mcg PO DAILY Patient Comments: TAKE 1 TABLET BY MOUTH ONCE DAILY IN THE MORNING ON AN EMPTY STOMACH cranberry extract 500 mg capsule 500 mg PO DAILY Rx Instructions: administer with meals [id number] mg capsule 1 cap PO DAILY gabapentin 300 mg capsule 900 mg PO TID aspirin 81 MG tablet,chewable 81 mg PO DAILY lisinopril 5 mg tablet 10 mg PO DAILY Referrals Follow up/Referrals: Stas Sher MD [Primary Care Provider] - See instructions Activity Restrictions/Add. Instructions Additional Instructions/Restrictions: Your CT scan incidentally showed multifocal airspace disease which in the setting of your cough we will treat for pneumonia. However this could be other underlying pathology such as pulmonary edema and/or malignancy so please ensure radiographic and symptomatic improvement with your primary care doctor with following up. Additionally please follow up with your primary care physician regarding your mild LFT abnormalities. 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 Please continue to take your 20 mg of lisinopril that you have been recently taking over the last week and escalate your blood pressure medicine per their instructions. Clinical Impressions Clinical Impression: Hypertension, Dizziness, Abnormal LFTs, CAP (community acquired pneumonia) Discharge ED Provider: Raven Reyna General Adult HPI General Chief complaint: Dizziness Stated complaint: High BP Phys ref Time Seen by Provider: 03/05/23 11:37 Mode of Arrival: Ambulatory Source of Information: Patient Limitations: No Limitations Description of Symptoms (Recalled from ER Triage Doc. by RN): Pt reports elevated bp. States checks her bp daily at home, when she checked it this was 180s/90s at home. Pt reports has taken bp medication today. Pt reports headache and intermittent dizziness. Denies chest pain, denies SOA. History of Present Illness HPI narrative: Patient is a 72-year-old female sent in by Patric with cardiology for hypertension and dizziness. She takes her blood pressure daily and says she woke up this morning with dizziness and noted herself to be hypertensive and went to her supervisor poultry processing office and they sent her to the emergency department. She denies any changes in vision or significant coordination changes but does state that she feels dizzy which is far proportion to her normal symptoms. No nausea vomiting or diarrhea no chest pain shortness of breath or any other concerning symptoms. She is on hypertensive medications we believe 10 mg of lisinopril daily which she states that she may be only taking 5 mg daily. Related Data Home Medications Medication Instructions Recorded Confirmed ropinirole 1 mg tablet 1 mg PO QHS RLS 02/24/18 02/19/23 aspirin 81 mg chewable tablet 81 mg PO DAILY heart health 07/19/18 03/05/23 atorvastatin 10 mg tablet 10 mg PO DAILY 02/19/23 02/19/23 cranberry extract 500 mg capsule 500 mg PO DAILY 02/19/23 02/19/23 gabapentin 300 mg capsule 900 mg PO TID Pain 02/19/23 02/19/23 krill 500 mg-omega-3 110 mg-dha 28 1 cap PO DAILY 02/19/23 02/19/23 mg-epa 60 [id number] capsule levothyroxine 50 mcg tablet 50 mcg PO DAILY 02/19/23 02/19/23 lisinopril 5 mg tablet 10 mg PO DAILY Hypertension 03/05/23 03/05/23 Previous Rx's Medication Instru
--- NOTE | 2023-03-05 11:49 | PC.NURSE ---
rounded on patient, spouse at bedside no needs
--- NOTE | 2023-03-05 12:20 | PC.NURSE ---
pt difficult IV stick, multiple attempts,ER MD aware and states will attempt with U/S
[2023-03-05 12:40] LABS: Basophils # 0.1 K/mm3 (0-0.2); Basophils % 0.8 % (0.1-2.0); Eosinophils # 0.5 K/mm3 (0.0-0.4); Eosinophils % 4.8 % (0.1-12.0); Hematocrit 55.9 % (37.0-47.0); Hemoglobin 17.9 g/dL (12.2-16.2); Lymphocytes # 2.2 K/mm3 (0.7-4.5); Lymphocytes % 23.5 % (10-50); Mean Corpuscular Hemoglobin 31.3 pg (27.0-31.2); Mean Corpuscular Volume 97.9 fl (81-99); Mean Platelet Volume 8.3 fl (7.4-10.4); Monocytes # 0.4 K/mm3 (0.1-1.0); Monocytes % 4.7 % (1.7-9.3); Neutrophils # 6.2 K/mm3 (1.8-7.8); Neutrophils % 66.1 % (37.0-80.0); Platelet Count 372 K/mm3 (142-424); Red Blood Count 5.71 M/mm3 (4.20-5.40); Red Cell Distribution Width 14.7 % (11.5-17.5); White Blood Count 9.3 K/mm3 (4.8-10.8)
[2023-03-05 12:50] LABS: Alanine Aminotransferase 36 U/L (12-78); Albumin Level 4.6 g/dl (3.5-5.0); Albumin/Globulin Ratio 1.2 (1.1-1.8); Alkaline Phosphatase 102 U/L (38-126); Anion Gap 12.3 mEq/L (5-15); Aspartate Amino Transferase 73 U/L (14-36); Bilirubin,Total 1.6 mg/dl (0.2-1.3); Blood Urea Nitrogen 15 mg/dl (7-17); Calcium 9.1 mg/dl (8.4-10.2); Carbon Dioxide 26 mmol/L (22.0-30.0); Chloride 103 mmol/L (98-107); Creatinine Clearance Estimated 57 mL/min (50-200); Estimated Glomerular Filt Rate 121 ml/min (>60); GFR (African American) 146 ML/MIN (>60); Globulin 3.8 g/dL (1.3-3.2); Glucose 142 mg/dl (74-100); Potassium 5.3 mmoL/L (3.5-5.1); Sodium 136 mmol/L (136-145); Total Protein,Serum 8.4 g/dl (6.3-8.2)
--- NOTE | 2023-03-05 13:47 | PC.NURSE ---
contacted rad to check on status of CTA results-rad staff reports they are in a locked status
--- NOTE | 2023-03-05 13:58 | PC.NURSE ---
rounded on patient, assisted in setting up lunch tray for patient
== END 2023-03-05 14:50 | disposition home or self-care (01) ==
PROVIDERS: Emergency Provider Student in an Organized Health Care Education/Training Program; PCP Family Medicine
DX: J18.9 Pneumonia, unspecified organism (principal); R51.9 Headache, unspecified; R42 Dizziness and giddiness; I10 Essential (primary) hypertension; E11.9 Type 2 diabetes mellitus without complications; E78.5 Hyperlipidemia, unspecified
CPT/HCPCS: 70496; 70498; 80053; 85025; 93005; 99285; Q9967

== ENCOUNTER → 2023-03-10 11:07 | Outpatient (CLI) | payer MEDICARE, SELFPAY ==
--- NOTE | 2023-03-10 11:49 | NM_ITS ---
APPROVED REPORT Exam: Nuclear Stress Test Indication: HTN, DM, FM HX Patient Location: Outpatient Stress Tech: Lindsey Pinto [place] Tech:BEN Stein RT (R)(N)(M) Ht: 5 ft 1 in Wt: 160 lbs Bra Size: D HR: 84 bpm BP: 184/87 mmHg BSA: 1.72 m2 Rhythm: NSR TID: 1.14 BMI: 30.2 History: HTN, DM, FM HX Procedure: Patient received 0.4 mg of intravenous Lexiscan, resting heart rate 84 bpm, resting blood pressure 184/87 mmHg, with Lexiscan maximum heart rate achieved was 100 bpm which is % of the maximum predicted heart rate and blood pressure was 191/90 mmHg. With Lexiscan, patient denied any complaint of chest pain. Cardiac Stress and Resting SPECT Images: Cardiac Stress and Resting SPECT images were obtained using technetium 99m Myoview 31.9 mCi stress and 10.55 mCi at rest. Resting and stress imaging in both supine and prone positions demonstrate no fixed or reversible perfusion defects. Gated imaging demonstrates normal global and regional LV systolic function. LVEF is calculated at 66%. Conclusion: No fixed or reversible perfusion defects. Gated imaging demonstrates normal global and regional LV systolic function. LVEF is calculated at 66%. Electronically signed by : Connie Chong, 03/14/2023 16:17:27
--- NOTE | 2023-03-10 11:49 | CA_ITS ---
APPROVED REPORT Exam: Pharmacologic Technologist: Lindsey Pinto, Ht: 5 ft 1 in Wt: 160 lbs BSA: 1.72 m2 HR: 84 bpm BP: 184/82 mmHg Rhythm: NSR Medical History Medical History: HTN, Hyperlipidemia, Diabetes Medications: Levothyroxine,,,,, Aspirin,,,,, Gabapentin,,,,, Atorvastatin,,,,, Ropinirole,,,,, Lisinopril HCTZ,,,,, Allergies: PENICILLINS, PROMETHAZINE Cardiac Risk Factors: HTN, Hyperlipidemia, Diabetes Stress Test Details Test: LEXISCAN HR Resting HR: 82 bpm Max Heart Rate (APMHR): 146 bpm Max HR Achieved: 103 bpm Target HR (85% APMHR): 124 bpm % of APMHR: 71 Recovery HR: 88 bpm BP Resting BP: 184/82 mmHg Max BP: 191/90 mmHg Recovery BP: 166.0/85.0 mmHg ECG Resting ECG: NSR, non-specific T-wave changes in inferolateral leads Stress ECG: No change Arrhythmia: PVCs Recovery ECG: No change Recovery Arrhythmia: None Clinical Exercise duration: 04:00 min Highest Stage Achieved: Exercise capacity: n/a METs Stress ECG Conclusion PT HAD DYSPNEA OCCASIONAL PVCS WERE PRESENT CONCLUSION UNREMARKABLE LEXISCAN STRESS TEST MYOVIEW IMAGING IS REPORTED SEPARATELY Test Summary REST 02:14 . . 82 . 184/ 82 . . Stage 1 . . . . . . . Myoview Injected Stage 1 01:00 . . 92 . . . . Stage 2 01:00 . . 96 . . . . Stage 3 01:00 . . 94 . 191/ 90 . . Stage 4 01:00 . . 91 . 172/ 84 . Stop exercise at 04:00 RECOVERY 01:00 . . 93 . 170/ 80 . . RECOVERY 02:00 . . 88 . 175/ 85 . . RECOVERY 03:00 . . 90 . 166/ 85 . . RECOVERY 03:12 . . 87 . 166/ 85 . . Electronically signed by : Connie Chong, 03/14/2023 16:15:35
== END ==
LOC: RT 11:07
PROVIDERS: PCP Family Medicine; Visit Provider Nurse Practitioner Family
DX: R00.2 Palpitations (principal); R42 Dizziness and giddiness; R94.31 Abnormal electrocardiogram [ECG] [EKG]
CPT/HCPCS: 78452; 93017; 93306; A9502; J2785

== ENCOUNTER 2023-03-24 09:42 | Emergency (ER) | payer MEDICARE, SELFPAY ==
[2023-03-24] VITALS (7 sets, daily range): BP systolic 157–198; BP diastolic 66–87; PULSE 65–73; RESP 16–20; TEMP 36.8; O2SAT 92–97; BMI 30.2
--- NOTE | 2023-03-24 10:08 | HMH.EDGENADL ---
Discharge Plan Disposition Patient Disposition: Home, Self-Care Condition: Good Prescriptions Prescriptions: New carvedilol 12.5 mg tablet 12.5 mg PO BID 30 Days Qty: 60 1RF Rx Instructions: must administer with a meal/food No Action carvedilol [Coreg] 6.25 mg tablet 6.25 mg PO BID Qty: 60 3RF Rx Instructions: must administer with a meal/food lisinopril 40 mg tablet 40 mg PO DAILY Qty: 30 3RF ropinirole 1 mg tablet 1 mg PO QHS atorvastatin 10 mg tablet 10 mg PO DAILY levothyroxine 50 mcg tablet 50 mcg PO DAILY Patient Comments: TAKE 1 TABLET BY MOUTH ONCE DAILY IN THE MORNING ON AN EMPTY STOMACH cranberry extract 500 mg capsule 500 mg PO DAILY Rx Instructions: administer with meals [id number] mg capsule 1 cap PO DAILY gabapentin 300 mg capsule 900 mg PO TID aspirin 81 MG tablet,chewable 81 mg PO DAILY azithromycin 250 mg tablet See Rx Instructions .ROUTE .COMPLEX Qty: 6 0RF Rx Instructions: For 250 mg dose pack: take 500 mg today (day 1), then 250 mg for 4 days (days 2-5) cefdinir 300 mg capsule 300 mg PO BID 10 Days Qty: 20 0RF Referrals Follow up/Referrals: Stas Sher MD [Primary Care Provider] - See instructions Activity Restrictions/Add. Instructions Additional Instructions/Restrictions: You were evaluated in the emergency department today. We are changing your dose of carvedilol from 6.25 mg twice daily to 12.5 mg twice daily. This means that you will take 2 of the 6.25 mg tablets in the morning and 2 of the 6.25 mg tablets in the evening. I also provided you with a prescription for 12.5 mg, and if you choose to pick this up instead, you will take 1 of these in the morning and 1 of these in the evening. I recommend keeping a log of her blood pressure. I recommend taking it twice a day: Once in the morning and once in the evening. Take Tylenol and ibuprofen at home as needed for headache. Follow-up with your primary care provider over the next 48 hours for reassessment. Return to the emergency department for any new or worsening symptoms. Clinical Impressions Clinical Impression: Hypertension Qualifiers: Hypertension type: unspecified Qualified Code(s): I10 - Essential (primary) hypertension Headache Qualifiers: Headache type: unspecified Headache chronicity pattern: acute headache Intractability: not intractable Qualified Code(s): R51.9 - Headache, unspecified Instructions Patient Instructions: DI for High Blood Pressure, DI for Headache Discharge ED Provider: Zhane Henriquez General Adult HPI General Chief complaint: Recheck/Abnormal Lab/Rx Stated complaint: high BP Time Seen by Provider: 03/24/23 09:46 Mode of Arrival: Ambulatory Source of Information: Patient Limitations: No Limitations Description of Symptoms (Recalled from ER Triage Doc. by RN): pt to ed c/o hypertension, headache and dizziness. pt states she took her blood pressure this morning and it was high then her headache followed. History of Present Illness HPI narrative: This patient is a 72-year-old female with a history of hypertension, hyperlipidemia, and type 2 diabetes presenting to the emergency department for evaluation with concern for headache, lightheadedness, and high blood pressure readings at home. She states that this has been a chronic issue that has been ongoing. She has been seen by cardiology and her primary care provider, who have been uptitrating her medications. She is currently on lisinopril 40 mg daily and carvedilol 6.25 mg twice daily. She states that she is compliant with these and is tolerating them well. She was evaluated here at the beginning of February on medical record review for similar symptoms, at which point she had CT head, CTA head and neck which were obtained that did not demonstrate any concerning abnormalities. She states her symptoms have not changed since
--- NOTE | 2023-03-24 10:12 | ECG_ITS ---
APPROVED REPORT Exam: Resting ECG HR:71 bpm ECG Measurements Heart Rate 71 AXES ID 203 P 71 QRSd 82 QRS -17 QT 382 T 20 QTc 405 Conclusion SINUS RHYTHM Late R wave progression -- old finding ABNORMAL ECG UNCONFIRMED REPORT Electronically signed by : Farrukh Fragoso MD 03/24/2023 21:13:41
[2023-03-24 10:13] LABS: Basophils # 0.1 K/mm3 (0-0.2); Basophils % 1.4 % (0.1-2.0); Eosinophils # 0.4 K/mm3 (0.0-0.4); Eosinophils % 4.3 % (0.1-12.0); Hematocrit 51.8 % (37.0-47.0); Hemoglobin 16.7 g/dL (12.2-16.2); Lymphocytes # 2.1 K/mm3 (0.7-4.5); Lymphocytes % 25.6 % (10-50); Mean Corpuscular HGB Conc 32.3 g/dL (31.8-35.4); Mean Corpuscular Hemoglobin 32.1 pg (27.0-31.2); Mean Corpuscular Volume 99.5 fl (81-99); Mean Platelet Volume 8.8 fl (7.4-10.4); Monocytes # 0.4 K/mm3 (0.1-1.0); Monocytes % 5.3 % (1.7-9.3); Neutrophils # 5.3 K/mm3 (1.8-7.8); Neutrophils % 63.4 % (37.0-80.0); Platelet Count 326 K/mm3 (142-424); Red Cell Distribution Width 15.1 % (11.5-17.5); White Blood Count 8.3 K/mm3 (4.8-10.8)
[2023-03-24 10:28] LABS: Chloride 104 mmol/L (98-107); Potassium 4.1 mmoL/L (3.5-5.1); Sodium 140 mmol/L (136-145)
[2023-03-24 10:30] LABS: Alanine Aminotransferase 31 U/L (12-78); Aspartate Amino Transferase 48 U/L (14-36); Blood Urea Nitrogen 9 mg/dl (7-17); Creatinine Clearance Estimated 57 mL/min (50-200); Estimated Glomerular Filt Rate 98 ml/min (>60); GFR (African American) 118 ML/MIN (>60)
[2023-03-24 10:31] LABS: Albumin Level 3.7 g/dl (3.5-5.0); Albumin/Globulin Ratio 1.2 (1.1-1.8); Alkaline Phosphatase 103 U/L (38-126); Anion Gap 9.1 mEq/L (5-15); Bilirubin,Total 0.9 mg/dl (0.2-1.3); Calcium 9.4 mg/dl (8.4-10.2); Carbon Dioxide 31 mmol/L (22.0-30.0); Glucose 121 mg/dl (74-100); Total Protein,Serum 6.7 g/dl (6.3-8.2)
== END 2023-03-24 12:00 | disposition home or self-care (01) ==
PROVIDERS: Emergency Provider Emergency Medicine; PCP Family Medicine
DX: R51.9 Headache, unspecified (principal); I10 Essential (primary) hypertension; R42 Dizziness and giddiness
CPT/HCPCS: 80053; 85025; 93005; 96374; 99284

== ENCOUNTER 2023-03-25 10:11 | Emergency (ER) | payer MEDICARE, SELFPAY ==
[2023-03-25] VITALS (7 sets, daily range): BP systolic 164–189; BP diastolic 71–86; PULSE 64–69; RESP 16; TEMP 36.6; O2SAT 94–97; BMI 30.2
--- NOTE | 2023-03-25 10:22 | XR_ITS ---
FINAL REPORT CLINICAL HISTORY: fall, pain, bruising/swelling FINDINGS: PORTABLE CHEST, 1 VIEW COMPARISON: 01/31/2020 The lungs bowers are unchanged . There is no pneumothorax. The cardiac silhouette is stable. Support tubes and lines are stable. IMPRESSION: No significant change. Reviewed, Interpreted and Dictated by Noel St MD Transcribed by Nanda Bhatt Authenticated and [facility]
--- NOTE | 2023-03-25 10:22 | XR_ITS ---
FINAL REPORT CLINICAL HISTORY: fall, pain, bruising/swelling FINDINGS: Right humerus Two views were obtained. There is no acute fracture or dislocation. The joint spaces appear normal. No soft tissue abnormality is identified. IMPRESSION: No acute process. Reviewed, Interpreted and Dictated by Noel St MD Transcribed by Nanda Bhatt Authenticated and [facility]
--- NOTE | 2023-03-25 10:22 | XR_ITS ---
FINAL REPORT CLINICAL HISTORY: fall, pain, bruising/swelling FINDINGS: Right femur Three views were obtained. There is no acute fracture or dislocation. The patient is status post right knee arthroplasty. No soft tissue abnormality is identified. IMPRESSION: No acute process. Reviewed, Interpreted and Dictated by Noel St MD Transcribed by Nanda Bhatt Authenticated and [facility]
--- NOTE | 2023-03-25 10:22 | XR_ITS ---
FINAL REPORT CLINICAL HISTORY: fall, pain, bruising/swelling FINDINGS: Right hand Three views were obtained. There is no acute fracture or dislocation. The bones are osteopenic. There are moderate degenerative changes, predominantly distally. Ulnar positive variance is identified. No soft tissue abnormality is identified. IMPRESSION: No acute process. Reviewed, Interpreted and Dictated by Noel St MD Transcribed by Nanda Bhatt Authenticated and [facility]
--- NOTE | 2023-03-25 10:22 | XR_ITS ---
FINAL REPORT CLINICAL HISTORY: fall, pain, bruising/swelling FINDINGS: Right shoulder Three views were obtained. There is no acute fracture or dislocation. There is mild AC joint arthropathy. No soft tissue abnormality is identified. IMPRESSION: No acute process. Reviewed, Interpreted and Dictated by Noel St MD Transcribed by Nanda Bhatt Authenticated and . [facility]
--- NOTE | 2023-03-25 10:22 | XR_ITS ---
FINAL REPORT CLINICAL HISTORY: fall, pain, bruising/swelling FINDINGS: Right hip Three views were obtained. There is a right inferior pubic ramus fracture, age indeterminate. There is mild deformity of the right pubis symphysis, probably chronic. The proximal femur is intact. IMPRESSION: Age indeterminate right inferior pubic ramus fracture. Recommend CT to further evaluate. Reviewed, Interpreted and Dictated by Noel St MD Transcribed by Nanda Bhatt Authenticated and [facility]
--- NOTE | 2023-03-25 10:22 | XR_ITS ---
FINAL REPORT CLINICAL HISTORY: fall, pain, bruising/swelling FINDINGS: Right knee Three views were obtained. There is no acute fracture or dislocation. Patient is status post right knee arthroplasty. No soft tissue abnormality is identified. IMPRESSION: No acute bony abnormality. Reviewed, Interpreted and Dictated by Noel St MD Transcribed by Nanda Bhatt Authenticated and [facility]
--- NOTE | 2023-03-25 10:24 | PC.NURSE ---
notified rad of xray orders
--- NOTE | 2023-03-25 10:31 | HMH.EDGENADL ---
Discharge Plan Disposition Patient Disposition: Home, Self-Care Condition: Good Prescriptions Prescriptions: No Action carvedilol [Coreg] 6.25 mg tablet 6.25 mg PO BID Qty: 60 3RF Rx Instructions: must administer with a meal/food lisinopril 40 mg tablet 40 mg PO DAILY Qty: 30 3RF ropinirole 1 mg tablet 1 mg PO QHS atorvastatin 10 mg tablet 10 mg PO DAILY levothyroxine 50 mcg tablet 50 mcg PO DAILY Patient Comments: TAKE 1 TABLET BY MOUTH ONCE DAILY IN THE MORNING ON AN EMPTY STOMACH cranberry extract 500 mg capsule 500 mg PO DAILY Rx Instructions: administer with meals [id number]-yc-[id number]-[id number]-ast [id number] mg capsule 1 cap PO DAILY gabapentin 300 mg capsule 900 mg PO TID carvedilol 12.5 mg tablet 12.5 mg PO BID 30 Days Qty: 60 1RF Rx Instructions: must administer with a meal/food aspirin 81 MG tablet,chewable 81 mg PO DAILY azithromycin 250 mg tablet See Rx Instructions .ROUTE .COMPLEX Qty: 6 0RF Rx Instructions: For 250 mg dose pack: take 500 mg today (day 1), then 250 mg for 4 days (days 2-5) cefdinir 300 mg capsule 300 mg PO BID 10 Days Qty: 20 0RF Referrals Follow up/Referrals: Stas Sher MD [Primary Care Provider] - See instructions Activity Restrictions/Add. Instructions Additional Instructions/Restrictions: You were evaluated in the emergency department today. Please rest, ice, and elevate the area as needed for pain. Take Tylenol and ibuprofen at home as needed for pain. Follow-up with your primary care provider over the next 3 days for reassessment. Return to the emergency department for any new or worsening symptoms. Clinical Impressions Clinical Impression: Fall Qualifiers: Encounter type: initial encounter Qualified Code(s): W19.XXXA - Unspecified fall, initial encounter Contusion of right shoulder Qualifiers: Encounter type: initial encounter Qualified Code(s): S40.011A - Contusion of right shoulder, initial encounter Contusion of right hip Qualifiers: Encounter type: initial encounter Qualified Code(s): S70.01XA - Contusion of right hip, initial encounter Contusion of right knee Qualifiers: Encounter type: initial encounter Qualified Code(s): S80.01XA - Contusion of right knee, initial encounter Instructions Patient Instructions: DI for Contusion, DI for Acute Pain -- Adult, How to Prevent Falls Discharge ED Provider: Zhane Henriquez General Adult HPI General Chief complaint: PAIN Stated complaint: AO fall 03/24, right side brusing/pain Time Seen by Provider: 03/25/23 10:13 Mode of Arrival: Ambulatory Source of Information: Patient Limitations: No Limitations Description of Symptoms (Recalled from ER Triage Doc. by RN): 72 yo F presents to ED with c/o right shoulder pain. pt reports having a fall yesterday evening. bruising noted to shoulder, arm,hand,knee,hip areas. pt reports pain only in shoulder. History of Present Illness HPI narrative: This patient is a 72-year-old female with a history of hypertension presenting to the emergency department for evaluation with concern for right shoulder pain after a mechanical fall yesterday. She states that yesterday evening, her toe got caught and she tripped, falling forward. She states that she felt pain in her right shoulder. She did not hit her head or lose consciousness. She has been ambulatory since, but the right shoulder pain has gotten worse and she is also developed significant bruising of her right shoulder, right hand, and right knee. Movement makes her right shoulder pain worse. She also has mild pain in her right hip, but she denies any issues with walking. She denies any headaches, vision changes, numbness, tingling, chest pain, shortness of breath, abdominal pain, or other concerns. She was well prior to the fall. No other concerns noted at this time. She did not take any medications for symptoms prior to arriva
--- NOTE | 2023-03-25 11:43 | PC.NURSE ---
preliminary results send from radiology, given to Dr. Henriquez at this time.
--- NOTE | 2023-03-25 11:45 | CT_ITS ---
FINAL REPORT TECHNIQUE: Axial images through the pelvis was performed by computed tomography. Sagittal and coronal reformatted images were obtained and reviewed. This study was performed with techniques to keep radiation doses as low as reasonably achievable, (ALARA). Individualized dose reduction techniques using automated exposure control or adjustment of mA and/or kV according to the patient's size were employed. CLINICAL HISTORY: fall, concern for fx FINDINGS: Right pubic symphyseal and right inferior pubic rami fractures have a chronic appearance. There is evidence of old right lateral sacral fracture. The proximal femur is intact. IMPRESSION: Chronic posttraumatic changes without acute fracture. Reviewed, Interpreted and Dictated by Noel St MD Transcribed by Nanda Bhatt Authenticated and [facility]
--- NOTE | 2023-03-25 12:58 | PC.NURSE ---
contact rad to check on status of CT report, states sending down a preliminary, updated Dr. Henriquez
== END 2023-03-25 13:24 | disposition home or self-care (01) ==
PROVIDERS: Emergency Provider Emergency Medicine; PCP Family Medicine
DX: S40.011A Contusion of right shoulder, initial encounter (principal); S70.01XA Contusion of right hip, initial encounter; S80.01XA Contusion of right knee, initial encounter; W01.0XXA Fall on same level from slipping, tripping and stumbling without subsequent striking against object, initial encounter; E11.9 Type 2 diabetes mellitus without complications; I10 Essential (primary) hypertension; E78.5 Hyperlipidemia, unspecified
CPT/HCPCS: 71045; 72192; 73030; 73060; 73130; 73502; 73552; 73562; 99285

== ENCOUNTER → 2023-03-27 07:00 | Outpatient (CLI) | payer MEDICARE, SELFPAY ==
--- NOTE | 2023-03-27 07:09 | US_ITS ---
FINAL REPORT TECHNIQUE: Ultrasound imaging of the abdomen was obtained. CLINICAL HISTORY: Abnormal ultrasound FINDINGS: The right kidney measures 9 cm in length. Left kidney measures 10 cm in length. There is no hydronephrosis or mass. The spleen is within normal limits measuring 10.7 cm. IMPRESSION: Unremarkable exam. Reviewed, Interpreted and Dictated by Noel St MD Transcribed by Ashli Mcallister Authenticated and [facility]
== END ==
PROVIDERS: PCP Family Medicine; Visit Provider Nurse Practitioner Family
DX: E11.9 Type 2 diabetes mellitus without complications (principal); E78.5 Hyperlipidemia, unspecified; I10 Essential (primary) hypertension; R00.2 Palpitations; R06.02 Shortness of breath; R42 Dizziness and giddiness; R94.31 Abnormal electrocardiogram [ECG] [EKG]
CPT/HCPCS: 76770

== ENCOUNTER → 2023-03-30 07:47 | Outpatient (CLI) | payer MEDICARE, SELFPAY ==
--- NOTE | 2023-03-30 07:50 | CA_ITS ---
FINAL REPORT TECHNIQUE: Grayscale, color Doppler and duplex Doppler ultrasound of the kidneys, aorta and renal arteries was performed. Multiple velocities were measured. CLINICAL HISTORY: HTN,DM FINDINGS: Right kidney: 10 cm. No evidence of hydronephrosis. There is a 2 cm upper pole right renal cyst. 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 Right intrarenal RI: 0.84 Right renal artery velocity: 173 cm/sec. Right RAR (Renal artery-Aortic Ratio): 1.42 Left Kidney: 9.5 cm. No evidence of hydronephrosis or mass. Left intrarenal RI: 0.7 Left renal artery velocity: 159 cm/sec. Left RAR (Renal Artery-Aortic Ratio): 1.3 IMPRESSION: No evidence of significant renal artery stenosis. CT angiogram or postcontrast MR angiogram would be more sensitive for evaluation of possible renal artery stenosis. Reviewed, Interpreted and Dictated by Bi Florentino III, MD Transcribed by Ashli Mcallister Authenticated and [facility]
== END ==
PROVIDERS: PCP Family Medicine; Visit Provider Nurse Practitioner Family
DX: E11.9 Type 2 diabetes mellitus without complications (principal); E78.5 Hyperlipidemia, unspecified; I10 Essential (primary) hypertension; R00.2 Palpitations; R06.02 Shortness of breath; R42 Dizziness and giddiness; R94.31 Abnormal electrocardiogram [ECG] [EKG]
CPT/HCPCS: 93976

== ENCOUNTER 2023-04-02 10:05 | Emergency (ER) | payer MEDICARE, SELFPAY ==
[2023-04-02 10:06] VITALS: BP 131/86; PULSE 76; RESP 16; TEMP 36.6; O2SAT 99; BMI 29.8
--- NOTE | 2023-04-02 10:22 | EXP.UTC ---
Discharge Plan Disposition Patient Disposition: Home, Self-Care Condition: Good Prescriptions Prescriptions: No Action carvedilol [Coreg] 6.25 mg tablet 6.25 mg PO BID Qty: 60 3RF Rx Instructions: must administer with a meal/food lisinopril 40 mg tablet 40 mg PO DAILY Qty: 30 3RF ropinirole 1 mg tablet 1 mg PO QHS atorvastatin 10 mg tablet 10 mg PO DAILY levothyroxine 50 mcg tablet 50 mcg PO DAILY Patient Comments: TAKE 1 TABLET BY MOUTH ONCE DAILY IN THE MORNING ON AN EMPTY STOMACH cranberry extract 500 mg capsule 500 mg PO DAILY Rx Instructions: administer with meals [id number]-ast [id number] mg capsule 1 cap PO DAILY gabapentin 300 mg capsule 900 mg PO TID carvedilol 12.5 mg tablet 12.5 mg PO BID 30 Days Qty: 60 1RF Rx Instructions: must administer with a meal/food aspirin 81 MG tablet,chewable 81 mg PO DAILY azithromycin 250 mg tablet See Rx Instructions .ROUTE .COMPLEX Qty: 6 0RF Rx Instructions: For 250 mg dose pack: take 500 mg today (day 1), then 250 mg for 4 days (days 2-5) cefdinir 300 mg capsule 300 mg PO BID 10 Days Qty: 20 0RF Referrals Follow up/Referrals: Stas Sher MD [Primary Care Provider] - See instructions Activity Restrictions/Add. Instructions Additional Instructions/Restrictions: Drink plenty of fluids. Take tylenol for pain or fever. Return if you begin to have difficulty breathing. Follow up with your regular doctor. GO TO THE ER FOR ANY WORSENING SYMPTOMS Clinical Impressions Clinical Impression: Exposure to 2019 novel coronavirus Instructions Patient Instructions: Coronavirus Disease 2019, Preventing the Spread of Coronavirus Discharge Instructions Discharge ED Provider: Mario Alberto Song [facility] General Stated complaint: covid expsure Time Seen by Provider: 04/02/23 10:22 History of Present Illness Provider Complaint: She was exposed to covid-19 around 5 days ago. She denies any symptoms so far. Related Data Home Medications Medication Instructions Recorded Confirmed ropinirole 1 mg tablet 1 mg PO QHS RLS 02/24/18 03/19/23 aspirin 81 mg chewable tablet 81 mg PO DAILY heart health 07/19/18 03/19/23 atorvastatin 10 mg tablet 10 mg PO DAILY 02/19/23 03/19/23 cranberry extract 500 mg capsule 500 mg PO DAILY 02/19/23 03/19/23 gabapentin 300 mg capsule 900 mg PO TID Pain 02/19/23 03/19/23 krill 500 mg-omega-3 110 mg-dha 28 1 cap PO DAILY 02/19/23 03/19/23 mg-epa 60 [id number]-uxvxd capsule levothyroxine 50 mcg tablet 50 mcg PO DAILY 02/19/23 03/19/23 Previous Rx's Medication Instructions Recorded azithromycin 250 mg tablet See Rx Instructions PO .COMPLEX #6 03/05/23 tabs cefdinir 300 mg capsule 300 mg PO BID 10 days #20 caps 03/05/23 carvedilol 6.25 mg tablet (Coreg) 6.25 mg PO BID #60 tabs 03/19/23 lisinopril 40 mg tablet 40 mg PO DAILY #30 tabs 03/19/23 carvedilol 12.5 mg tablet 12.5 mg PO BID 1 month #60 tabs 03/24/23 Allergies Allergy/AdvReac Type Severity Reaction Status Date / Time Penicillins [PENICILLINS] Allergy Unknown I-HIVES Verified 03/19/23 12:50 promethazine [PROMETHAZINE] Allergy Unknown MAKES Verified 03/19/23 12:50 CRAZY EXACERBATES RLS [facility] Disclaimer: The information contained in this section may have been updated after the patient was seen, as this information can be updated by other users. Medical History Diabetes mellitus, type 2 Hyperlipidemia Hypertension Hypertension SOB (shortness of breath) on exertion Surgical History History of cholecystectomy History of tonsillectomy Social History Smoking Status: Never smoker second hand exposure: No alcohol intake: never substance use type: denies use kim
[2023-04-02 11:03] VITALS: BP 131/86; PULSE 76; RESP 16; TEMP 36.6; O2SAT 99
== END 2023-04-02 11:04 | disposition home or self-care (01) ==
LOC: UTC 10:55
PROVIDERS: Emergency Provider Nurse Practitioner Family; PCP Family Medicine
DX: Z20.822 Contact with and (suspected) exposure to COVID-19 (principal); E11.9 Type 2 diabetes mellitus without complications; E78.5 Hyperlipidemia, unspecified; I10 Essential (primary) hypertension
CPT/HCPCS: 99212; 99213; G0463

== ENCOUNTER 2023-08-23 08:22 | Emergency (ER) | payer MEDICARE, SELFPAY ==
[2023-08-23] VITALS (9 sets, daily range): BP systolic 143–171; BP diastolic 64–82; PULSE 61–79; RESP 14–20; TEMP 36.6–36.7; O2SAT 94–97; BMI 29.5; BMI 27.4
[2023-08-23 08:42] LABS: POC Glucose,Bedside 466 (70-110)
--- NOTE | 2023-08-23 08:55 | EXP.UTC ---
Discharge Plan Disposition Patient Disposition: Still a Patient Condition: Good Prescriptions Prescriptions: No Action ropinirole 1 mg tablet 1 mg PO QHS atorvastatin 10 mg tablet 10 mg PO DAILY levothyroxine 50 mcg tablet 50 mcg PO DAILY Patient Comments: TAKE 1 TABLET BY MOUTH ONCE DAILY IN THE MORNING ON AN EMPTY STOMACH cranberry extract 500 mg capsule 500 mg PO DAILY Rx Instructions: administer with meals [id number]-grw-amw-yzrbcer-ast [id number] mg capsule 1 cap PO DAILY amitriptyline 50 mg tablet 50 mg PO HS Patient Comments: TAKE 1 TABLET BY MOUTH AT BEDTIME gabapentin 800 mg tablet 800 mg PO TID Soliqua 100/33 100 unit-33 mcg/mL insulin pen 10 unit SQ azithromycin [Zithromax Z-Kameron] 250 mg tablet See Rx Instructions PO .COMPLEX Qty: 6 0RF Rx Instructions: For 250 mg dose pack: take 500 mg today (day 1), then 250 mg for 4 days (days 2-5) PO benzonatate 100 mg capsule 100 mg PO BID PRN (Reason: cough) Qty: 10 0RF carvedilol [Coreg] 6.25 mg tablet 6.25 mg PO BID Qty: 180 3RF Rx Instructions: must administer with a meal/food lisinopril 40 mg tablet 40 mg PO DAILY Qty: 90 3RF aspirin 81 MG tablet,chewable 81 mg PO DAILY Referrals Follow up/Referrals: Stas Sher MD [Primary Care Provider] - See instructions Clinical Impressions Clinical Impression: Dehydration, Hyperglycemia, Light headedness Instructions Patient Instructions: DI for Hyperglycemia -- Adult Discharge ED Provider: Raven Reyna [facility] General Chief complaint: Hyper/Hypoglycemia Stated complaint: elevated blood sugar Time Seen by Provider: 08/23/23 08:55 History of Present Illness Provider Complaint: Patient states that she hasnt been eating the way she should and has been eating some things she wasnt suppose too and her blood sugar has been going up States that this morning she checked it and it was 584 and she took 10 units of Insulin around 730 States that she has noticed she has been more thirsty and drinking more along with urinating more frequently than normal and feeling dizzy Family Member states that she has been tripping everywhere so they brought her in Related Data Home Medications Medication Instructions Recorded Confirmed ropinirole 1 mg tablet 1 mg PO QHS RLS 02/24/18 08/13/23 aspirin 81 mg chewable tablet 81 mg PO DAILY heart health 07/19/18 08/13/23 atorvastatin 10 mg tablet 10 mg PO DAILY 02/19/23 08/13/23 cranberry extract 500 mg capsule 500 mg PO DAILY 02/19/23 08/13/23 krill 500 mg-omega-3 110 mg-dha 28 1 cap PO DAILY 02/19/23 08/13/23 mg-epa 60 uc-gekydqy-qzrxg capsule levothyroxine 50 mcg tablet 50 mcg PO DAILY 02/19/23 08/13/23 amitriptyline 50 mg tablet 50 mg PO HS 07/10/23 08/13/23 gabapentin 800 mg tablet 800 mg PO TID 07/10/23 08/13/23 insulin glargine 100 10 unit SQ 07/10/23 08/13/23 unit-lixisenatide 33 mcg/mL subcutaneous pen (Soliqua 100/33) Previous Rx's Medication Instructions Recorded carvedilol 6.25 mg tablet (Coreg) 6.25 mg PO BID #180 tabs 06/09/23 lisinopril 40 mg tablet 40 mg PO DAILY #90 tabs 06/09/23 azithromycin 250 mg tablet See Rx Instructions PO .COMPLEX #6 07/10/23 (Zithromax Z-Kameron) tabs benzonatate 100 mg capsule 100 mg PO BID PRN cough #10 caps 07/10/23 Allergies Allergy/AdvReac Type Severity Reaction Status Date / Time Penicillins [PENICILLINS] Allergy Unknown I-HIVES Verified 08/13/23 09:26 promethazine [PROMETHAZINE] Allergy Unknown MAKES Verified 08/13/23 09:26 CRAZY EXACERBATES RLS [facility] Disclaimer: The information contained in this section may have been updated after the patient was seen, as this information can be updated by other users. Medical History Diabetes mellitus, type 2 Hyperlipidemia Hypertension Hypertension SOB (shortness of breath) o
--- NOTE | 2023-08-23 08:58 | PC.NURSE ---
PATIENT SENT TO ER PER Shahab WRAY APRN FOR FURTHER EVALUATION. REPORT GIVEN TO DR. MONREAL BY Shahab WRAY APRN. PATIENT AMBULATED TO ER WITH [facility] STAFF ASSIST, REFUSED WHEELCHAIR TRANSPORT. FAMILY AT BEDSIDE
--- NOTE | 2023-08-23 09:16 | HMH.EDGENADL ---
Discharge Plan Disposition Patient Disposition: Still a Patient Condition: Good Prescriptions Prescriptions: No Action ropinirole 1 mg tablet 1 mg PO QHS atorvastatin 10 mg tablet 10 mg PO DAILY levothyroxine 50 mcg tablet 50 mcg PO DAILY Patient Comments: TAKE 1 TABLET BY MOUTH ONCE DAILY IN THE MORNING ON AN EMPTY STOMACH cranberry extract 500 mg capsule 500 mg PO DAILY Rx Instructions: administer with meals [id number]-[id number]-dqfocqm-ast [id number] mg capsule 1 cap PO DAILY amitriptyline 50 mg tablet 50 mg PO HS Patient Comments: TAKE 1 TABLET BY MOUTH AT BEDTIME gabapentin 800 mg tablet 800 mg PO TID Soliqua 100/33 100 unit-33 mcg/mL insulin pen 10 unit SQ azithromycin [Zithromax Z-Kameron] 250 mg tablet See Rx Instructions PO .COMPLEX Qty: 6 0RF Rx Instructions: For 250 mg dose pack: take 500 mg today (day 1), then 250 mg for 4 days (days 2-5) PO benzonatate 100 mg capsule 100 mg PO BID PRN (Reason: cough) Qty: 10 0RF carvedilol [Coreg] 6.25 mg tablet 6.25 mg PO BID Qty: 180 3RF Rx Instructions: must administer with a meal/food lisinopril 40 mg tablet 40 mg PO DAILY Qty: 90 3RF aspirin 81 MG tablet,chewable 81 mg PO DAILY Referrals Follow up/Referrals: Stas Sher MD [Primary Care Provider] - See instructions Clinical Impressions Clinical Impression: Dehydration, Hyperglycemia, Light headedness Instructions Patient Instructions: DI for Hyperglycemia -- Adult Discharge ED Provider: Raven Reyna General Adult HPI General Chief complaint: Hyper/Hypoglycemia Stated complaint: elevated blood sugar Time Seen by Provider: 08/23/23 08:55 Mode of Arrival: Ambulatory Source of Information: Patient Limitations: No Limitations Description of Symptoms (Recalled from ER Triage Doc. by RN): 72 yo F transfer form [facility] for further evaluation. pt reports lightheadedness that began this am. pt reports she checks her glucose once a day and gives herself 10 units of soliqua. but takes no other medications for her diabetes. pt reports her glucose was around 524 yesterday and this am her glucose at home was 584. pt reports to giving herself her insuline but no relief of symptoms. History of Present Illness HPI narrative: Patient is a 72-year-old female who was transferred here from the urgent treatment clinic for further evaluation. States she has a history of diabetes but is only recently over the last several months been on insulin. States that her last hemoglobin A1c was less than 7. She states she has had very large amounts of urine output and her mouth is very dry and she has been lightheaded and feels like she is drunk. Denies any fevers or any other infectious symptoms no pain or any other complaints today. Related Data Home Medications Medication Instructions Recorded Confirmed ropinirole 1 mg tablet 1 mg PO QHS RLS 02/24/18 08/13/23 aspirin 81 mg chewable tablet 81 mg PO DAILY heart health 07/19/18 08/13/23 atorvastatin 10 mg tablet 10 mg PO DAILY 02/19/23 08/13/23 cranberry extract 500 mg capsule 500 mg PO DAILY 02/19/23 08/13/23 krill 500 mg-omega-3 110 mg-dha 28 1 cap PO DAILY 02/19/23 08/13/23 mg-epa 60 pp-puwbyug-hwmzs capsule levothyroxine 50 mcg tablet 50 mcg PO DAILY 02/19/23 08/13/23 amitriptyline 50 mg tablet 50 mg PO HS 07/10/23 08/13/23 gabapentin 800 mg tablet 800 mg PO TID 07/10/23 08/13/23 insulin glargine 100 10 unit SQ 07/10/23 08/13/23 unit-lixisenatide 33 mcg/mL subcutaneous pen (Soliqua 100/33) Previous Rx's Medication Instructions Recorded carvedilol 6.25 mg tablet (Coreg) 6.25 mg PO BID #180 tabs 06/09/23 lisinopril 40 mg tablet 40 mg PO DAILY #90 tabs 06/09/23 azithromycin 250 mg tablet See Rx Instructions PO .COMPLEX #6 07/10/23 (Zithromax Z-Kameron) tabs benzonatate 100 mg capsule 100 mg PO BID PRN cough #10 caps 07/10/23 Allergies Allergy/AdvReac Ty
[2023-08-23 09:23] LABS: Basophils # 0.1 K/mm3 (0-0.2); Eosinophils # 0.1 K/mm3 (0.0-0.4); Neutrophils # 6.9 K/mm3 (1.8-7.8)
[2023-08-23 09:28] LABS: Alanine Aminotransferase 36 U/L (12-78); Albumin Level 4.1 g/dl (3.5-5.0); Albumin/Globulin Ratio 1.5 (1.1-1.8); Alkaline Phosphatase 97 U/L (38-126); Anion Gap 8.9 mEq/L (5-15); Aspartate Amino Transferase 34 U/L (14-36); Bilirubin,Total 0.9 mg/dl (0.2-1.3); Blood Urea Nitrogen 17 mg/dl (7-17); Calcium 9.6 mg/dl (8.4-10.2); Carbon Dioxide 29 mmol/L (22.0-30.0); Chloride 99 mmol/L (98-107); Creatinine Clearance Estimated 53 mL/min (50-200); Estimated Glomerular Filt Rate 70 ml/min (>60); GFR (African American) 85 ML/MIN (>60); Globulin 2.8 g/dL (1.3-3.2); Magnesium 2.2 mg/dl (1.6-2.3); Phosphorous 3.7 mg/dl (2.5-4.5); Potassium 3.9 mmoL/L (3.5-5.1); Sodium 133 mmol/L (136-145); Total Protein,Serum 6.9 g/dl (6.3-8.2)
[2023-08-23 09:29] LABS: Basophils % 1.1 % (0.1-2.0); Eosinophils % 0.9 % (0.1-12.0); Lymphocytes # 1.6 K/mm3 (0.7-4.5); Lymphocytes % 17.8 % (10-50); Mean Corpuscular HGB Conc 32.1 g/dL (31.8-35.4); Mean Corpuscular Hemoglobin 33.5 pg (27.0-31.2); Mean Corpuscular Volume 104.2 fl (81-99); Mean Platelet Volume 8.7 fl (7.4-10.4); Monocytes # 0.4 K/mm3 (0.1-1.0); Monocytes % 4.4 % (1.7-9.3); Neutrophils % 75.8 % (37.0-80.0); Platelet Count 329 K/mm3 (142-424); Red Blood Count 5.66 M/mm3 (4.20-5.40); Red Cell Distribution Width 15.3 % (11.5-17.5)
[2023-08-23 09:31] LABS: Glucose 453 mg/dl (74-100)
[2023-08-23 09:34] LABS: VBG Base Excess 0.8 mmol/L (-2.4-2.3); VBG HCO3 26.2 mmol/L (23-30); VBG Oxygen Saturation 77.4 % (50-70); VBG PCO2 47.5 mmol/L (35-51); VBG PH 7.36 mmol/L (7.31-7.41); VBG PO2 40.6 mmol/L (28-40); VBG Total CO2 27.7 mmol/L (23-27)
--- NOTE | 2023-08-23 09:35 | PC.NURSE ---
Critical glucose of 453 reported to Star Miller RN from [facility] in LAB
[2023-08-23 09:52] LABS: Microscopic, Urine URINE MICROSCOPIC (MICROSCOPIC)
--- NOTE | 2023-08-23 09:52 | PC.NURSE ---
Pt ambulatory to bathroom with use of cane. Warm blanket provided. Call light within reach.
[2023-08-23 09:53] LABS: Appearance,Urine SL CLOUDY (Clear); Bilirubin,Urine Negative (Negative); Blood, Urine Negative (Negative); Color,Urine YELLOW (Yellow); Glucose,Urine (UA) 3+ (Negative); Ketones,Urine Negative (Negative); Leukocyte Esterase,Urine Negative (Negative); Nitrate,Urine Negative (Negative); Protein,Urine Negative (Negative); Specific Gravity, Urine 1.015 (1.005-1.030); Urobilinogen,Urine 0.2 EU/dl (0.2)
[2023-08-23 10:04] LABS: Bacteria,Urine Trace /lpf; Squamous Epithelial Cell,Urine Occasional #/hpf (0-5); WBC,Urine Occasional #/hpf (0-3)
[2023-08-23 10:38] LABS: POC Glucose,Bedside 364 (70-110)
--- NOTE | 2023-08-23 11:53 | PC.NURSE ---
Rounded on pt. No needs voiced at this time. Call light within reach.
== END 2023-08-23 12:34 | disposition still patient (30) ==
LOC: UTC 08:25 → ER 08:57
PROVIDERS: Nurse Practitioner; Emergency Provider Student in an Organized Health Care Education/Training Program; PCP Family Medicine
DX: E11.65 Type 2 diabetes mellitus with hyperglycemia (principal); E86.0 Dehydration; R42 Dizziness and giddiness; I10 Essential (primary) hypertension; E78.5 Hyperlipidemia, unspecified
CPT/HCPCS: 80053; 81001; 82803; 82962; 83735; 84100; 85025; 96360; 99285

== ENCOUNTER 2024-01-22 12:08 | Observation (INO) | payer MEDICARE, SELFPAY ==
[2024-01-22] VITALS (17 sets, daily range): BP systolic 110–143; BP diastolic 64–86; PULSE 64–84; RESP 12–22; TEMP 36.6–36.9; O2SAT 86–98; BMI 26.4; BMI 29.7
--- NOTE | 2024-01-22 12:15 | ECG_ITS ---
APPROVED REPORT Exam: Resting ECG HR:75 bpm ECG Measurements Heart Rate 75 AXES OR 189 P 52 QRSd 89 QRS -15 QT 385 T 11 QTc 414 Conclusion SINUS RHYTHM WITH SINUS ARRHYTHMIA LOW QRS VOLTAGE IN PRECORDIAL LEADS [QRS DEFLECTION < 1.0 mV IN CHEST LEADS] INFERIOR MYOCARDIAL INFARCTION , PROBABLY OLD [40+ ms Q WAVE AND/OR ST/T ABNORMALITY IN II/aVF] ANTEROSEPTAL MYOCARDIAL INFARCTION , PROBABLY OLD [40+ ms Q WAVE IN V1-V4] ABNORMAL ECG Electronically signed by : HETAL GOMEZ, 01/23/2024 04:40:00
--- NOTE | 2024-01-22 12:33 | CT_ITS ---
FINAL REPORT TECHNIQUE: The patient was injected with IV contrast. Axial images were obtained through the chest in a PE protocol. 3-D reconstruction images were also performed. Individualized dose reduction techniques using automated exposure control or adjustment of the MA and/or KV according to patient's size were employed. CLINICAL HISTORY: chest pain soa COMPARISON: 09/20/2019 FINDINGS: Mediastinal vasculature is adequately opacified. No pulmonary artery filling defects are identified to suggest PE. There is no aortic dissection. There is no axillary adenopathy. There is mild mediastinal adenopathy present. A subcarinal node measures up to 2 cm in diameter, best seen on image #34. The heart size is normal. There is no pericardial or pleural effusion. Limited images of the upper abdomen are unremarkable. No suspicious infiltrate or nodule is identified. Chronic scarring is present in the lung bases. IMPRESSION: No pulmonary embolus or dissection. Mild mediastinal adenopathy, with a subcarinal node measuring up to 2 cm in diameter. Reviewed, Interpreted and Dictated by Nithin Perrin MD Transcribed by Areli Fortune Authenticated and [facility]
--- NOTE | 2024-01-22 12:37 | ED_ITS ---
Discharge Plan Disposition Patient Disposition: Admitted Condition: Good Clinical Impressions Clinical Impression: Mediastinal adenopathy, Bronchitis, Acute hypoxemic respiratory failure Discharge ED Provider: Praful Fall HPI <Praful Fall MD - Last Filed: 01/22/24 15:21> General Chief Complaint: Shortness of Breath/Dyspnea Stated Complaint: SOA, Low O2 Time Seen by Provider: 01/22/24 12:12 Mode of Arrival: Family Vehicle Source of Information: Patient Limitations: No Limitations Description of Symptoms (Recalled from ER Triage Doc. by RN): Pt c/o SOA, dyspnea, cough, and fatigue. States she ssaw her PCP, Dr. Sher, on Thursday and was prescribed Keflex & benzonatate. She reports she was supposed to have been on O2 but they are having trouble ordering it. She checked her spo2 at home and it was 66% [employer]. Denies any fever, chills, body aches, or chills. History of Present Illness HPI narrative: Please note that above description of symptoms, in this electronic medical record under categorization of recalled from ER triage doctor by RN are reflective of an initial nursing assessment, however, is not reflective of my full history and physical exam that was personally taken and clarified. Consequentially, this preceding description of symptoms, which may include the patient's categorized chief complaint in the EMR, do not reflect my personal clinical impression, and the ultimate description of history of present illness and patient stated complaints should be deferred to this section of the note. Unless stated otherwise or congruent with this section of the note, additional signs, symptoms, or incongruence should be interpreted as inaccurate with my clinical impression. Related Data Home Medications Medication Instructions Recorded Confirmed ropinirole 1 mg tablet 1 mg PO QHS RLS 02/24/18 01/18/24 aspirin 81 mg chewable tablet 81 mg PO DAILY heart health 07/19/18 01/18/24 atorvastatin 10 mg tablet 10 mg PO DAILY 02/19/23 01/18/24 levothyroxine 50 mcg tablet 50 mcg PO DAILY 02/19/23 01/18/24 gabapentin 800 mg tablet 800 mg PO TID 07/10/23 01/18/24 insulin glargine 100 10 unit SQ 07/10/23 01/18/24 unit-lixisenatide 33 mcg/mL subcutaneous pen (Soliqua 100/33) blood sugar diagnostic (True #10 ea 01/18/24 01/18/24 Metrix Glucose Test Strip) fluticasone fur. 100 mcg-umeclid inhalation PRN 01/18/24 01/18/24 62.5 mcg-vilant 25 mcg inhalat.powder (Trelegy Ellipta) lancets 33 gauge (TRUEplus Lancets) #100 ea 01/18/24 01/18/24 paroxetine HCl 30 mg tablet mg PO DAILY 01/18/24 01/18/24 pen needle, diabetic 31 gauge x #100 ea 01/18/24 01/18/2409/03 (Droplet Pen Needle) pen needle, diabetic 32 gauge x #100 ea 01/18/24 01/18/2409/03 (BD Ultra-Fine Micro Pen Needle) trazodone 100 mg tablet mg PO DAILY 01/18/24 01/18/24 Previous Rx's Medication Instructions Recorded carvedilol 6.25 mg tablet (Coreg) 6.25 mg PO BID #180 tabs 06/09/23 lisinopril 40 mg tablet 40 mg PO DAILY #90 tabs 06/09/23 Allergies Allergy/AdvReac Type Severity Reaction Status Date / Time Penicillins [PENICILLINS] Allergy Unknown I-HIVES Verified 01/18/24 14:26 promethazine [PROMETHAZINE] Allergy Unknown MAKES Verified 01/18/24 14:26 CRAZY EXACERBATES RLS [facility] <Praful Fall MD - Last Filed: 01/22/24 15:21> [facility] Disclaimer: The information contained in this section may have been updated after the patient was seen, as this information can be updated by other users. Medical History Hyperlipidemia Hypertension SOB (shortness of breath) on exertion Diabetes mellitus, type 2 Hypertension Surgical History History of tonsillectomy History of cholecystectomy Social History Smoking Status: Never smoker second hand exposure: No alcohol intake: never substance use type: denies use current occupational status: retired Travel in the last 8 weeks: None household members: spouse housing: house current occupational exposures/hazards: No caffeine: No <Praful Fall MD - Last Filed: 01/22/24 15:21> ROS Obtained: Yes All systems reviewed & no additional complaints except as documented Physical Exam <Praful Fall MD - Last Filed: 01/22/24 15:21> General General appearance: alert, anxious (tearful) and in distress (mild resp) ENT ENT exam: Present other (Nasal cannula in place 2 L) Neck Neck exam: Present trachea midline Chest Chest inspection: Present normal inspection and symmetric chest wall rise Respiratory Respiratory exam: Present normal lung sounds bilaterally; Absent respiratory distress, wheezes, stridor, accessory muscle use or prolonged expiratory phase Cardiovascular Cardiovascular exam: Present regular rate and normal rhythm Extremities Exam Extremities exam: Absent edema Neurological Exam Neurological exam: Present alert, oriented X3 and CN II-XII intact Skin Skin exam: Present warm and dry; Absent cyanosis, diaphoresis or pallor HEART Score <Praful Fall MD - Last Filed: 01/22/24 15:21> HEART Score HEART Score assessment performed?: Yes HEART Score: 4 <Zhane Henriquez DO - Last Filed: 01/22/24 17:02> HEART Score History (anamnesis): Slightly suspicious ECG: Non-specific disturbance Age: >65 years Risk factors: 1-2 risk factors Troponin: </= normal limit HEART Score: 4 Procedures <Praful Fall MD - Last Filed: 01/22/24 15:21> Limited Ultrasound Indication:: Limited cardiac ultrasound Indication: Shortness of breath Identified cardiac views: -Cardiac parasternal long axis -Cardiac parasternal short axis -Cardiac apical four-chamber Findings: -Cardiac activity present -Gross wall motion normal -Pericardial effusion absent -Right heart strain absent Impression: -Normal cardiac echo Images were saved to permanent archive The study was technically adequate CPT: 99367 This study was performed by me, and I personally interpreted all images/videos. Based on my clinical judgement, these images were adequate and did not necessitate further imaging. Critical Care <Praful Fall MD - Last Filed: 01/22/24 15:21> Critical Care Time Critical Care Time: No Medical Decision Making <Praful Fall MD - Last Filed: 01/22/24 15:21> Medical Records Medical records reviewed: Yes I reviewed the patient's medical records. Brayan Inquiry Pt receiving controlled substance: No Brayan was queried for this patient: No Vital Signs Vital Signs: 01/22/24 12:09 01/22/24 13:30 01/22/24 14:02 Temperature 97.8 F Temperature Source Oral Pulse Rate 64 72 Pulse Rate [Right] 66 Respiratory Rate 21 12 18 Blood Pressure 110/86 122/64 Blood Pressure [Right Arm] 122/67 Blood Pressure Mean Blood Pressure Mean [Right Arm] 85 Blood Pressure Source [Right Arm] Automatic Cuff 02 Sat by Pulse Oximetry 87 L 92 L 91 L Oxygen Delivery Method Room Air Oxygen Flow Rate (LPM) 01/22/24 14:31 01/22/24 15:00 01/22/24 15:30 Temperature Temperature Source Pulse Rate 72 68 Pulse Rate [Right] Respiratory Rate 22 13 13 Blood Pressure 139/70 125/66 120/83 Blood Pressure [Right Arm] Blood Pressure Mean Blood Pressure Mean [Right Arm] Blood Pressure Source [Right Arm] 02 Sat by Pulse Oximetry 95 95 Oxygen Delivery Method Nasal Cannula Nasal Cannula Oxygen Flow Rate (LPM) 2 2 01/22/24 16:00 01/22/24 16:15 01/22/24 16:31 Temperature Temperature Source Pulse Rate 69 69 68 Pulse Rate [Right] Respiratory Rate 14 15 13 Blood Pressure 116/65 135/65 Blood Pressure [Right Arm] Blood Pressure Mean 85 Blood Pressure Mean [Right Arm] Blood Pressure Source [Right Arm] 02 Sat by Pulse Oximetry 93 L 93 L 94 L Oxygen Delivery Method Nasal Cannula Oxygen Flow Rate (LPM) 2 2 Lab Data Labs: Lab Results 01/22/24 12:15: WBC 7.3, RBC 5.70 H, Hgb 18.8 H, Hct 58.6 H, MCV 102.9 H, MCH 33.0 H, MCHC 32.0, RDW 14.2, Plt Count 300, MPV 8.7, Neut % (Auto) 54.2, Lymph % (Auto) 33.0, Henry % (Auto) 6.4, Eos % (Auto) 2.7, Baso % (Auto) 3.8 H, Neut # (Auto) 3.9, Lymph # (Auto) 2.4, Henry # (Auto) 0.5, Eos # (Auto) 0.2, Baso # (Auto) 0.3 H, Sodium 139, Potassium 4.2, Chloride 100, Carbon Dioxide 31 H, Anion Gap 12.2, BUN 23 H, Creatinine 0.90, Estimated Creat Clear 49, Estimated GFR 61, Est GFR ( Amer) 74, Glucose 135 H, Calcium 10.0, Total Bilirubin 0.6, AST 40 H, ALT 23, Alkaline Phosphatase 103, Troponin I < 0.01, NT-Pro-B Natriuret Pep 151, Total Protein 7.7, Albumin 4.2, Globulin 3.5 H, Albumin/Globulin Ratio 1.2 01/22/24 12:36: VBG pH 7.38, VBG pCO2 45.7, VBG pO2 42.8 H, VBG HCO3 26.6, VBG Total CO2 28.0 H, VBG O2 Saturation 79.7 H, VBG Base Excess 1.5, VBG Lactic Acid 2.9 H 01/22/24 15:10: Troponin I < 0.01 01/22/24 12:15 01/22/24 12:15 Response Orders (Tests/Meds): ED MEDICATIONS Discontinued Medications Generic Name Dose Route Start Last Admin Trade Name Freq PRN Reason Stop Dose Admin Albuterol/Ipratropium 6 ml 01/22/24 12:33 01/22/24 12:44 Ipratropium/Albuterol 3 Ml Neb IH 01/22/24 12:34 6 ml ONCE ONE Administration Aspirin 324 mg 01/22/24 12:33 01/22/24 12:45 Aspirin 81mg Chewable Tablet PO 01/22/24 12:34 324 mg ONCE ONE Administration Iopamidol 70 ml 01/22/24 13:14 01/22/24 13:15 Iopamidol-370 (76%);100ml Bottle IV 01/22/24 13:15 70 ml ONCE ONE Administration Methylprednisolone Sodium Succinate 125 mg 01/22/24 14:59 01/22/24 15:07 Methylprednisolone Sod Succ 125mg Vial IV 01/22/24 15:00 125 mg ONCE ONE Administration Sodium Chloride 10 ml 01/22/24 13:14 01/22/24 13:15 Sodium Chloride 0.9% 10ml Syr (Rad Only) IV 01/22/24 13:15 10 ml ONCE ONE Administration Sodium Chloride 50 ml 01/22/24 13:14 01/22/24 13:15 0.9 % Sodium Chloride 50 Ml Vial IV 01/22/24 13:15 50 ml ONCE ONE Administration ORDERS Category Date Time Status CT angio chest PE protocol Stat Cat Scan 01/22/24 12:33 Completed POCUS Point of Care (ER Only) Stat Exams 01/22/24 14:06 Completed CBC w/Auto Diff [Complete Blood Count Auto Diff] Stat Lab 01/22/24 12:15 Completed CMP [Comprehensive Metabolic Panel] Stat Lab 01/22/24 12:15 Completed Complete Blood Count Auto Diff AMLAB Lab 01/23/24 06:00 Ordered Comprehensive Metabolic Panel AMLAB Lab 01/23/24 06:00 Ordered Full Resp Panel w/COVID ([facility]) Routine Lab 01/22/24 16:35 Received Hemoglobin A1C Stat Lab 01/22/24 15:10 Received Magnesium AMLAB Lab 01/23/24 06:00 Ordered NT Pro Brain Natriuretic Pep. Stat Lab 01/22/24 12:15 Completed TSH [Thyroid Stimulating Hormone] Stat Lab 01/22/24 15:10 Received Trop I [Troponin I] Stat Lab 01/22/24 12:15 Completed Troponin I Q3H Lab 01/22/24 15:10 Completed Troponin I Q3H Lab 01/22/24 18:45 Ordered VBG [Venous Blood Gas] Stat RT 01/22/24 12:36 Completed MDM Narrative Medical Decision Narrative: 73-year-old female history of hypertension, diabetes, hyperlipidemia, subacute shortness of breath with primary care presenting with shortness of breath and cough. Patient's cough has been getting worse for about a week, but has been following with primary care for the last couple of weeks given chronic shortness of breath. Patient and state that patient's oxygen has been running low, and they are working with her primary care provider in order to hopefully get oxygen at the house. According to patient and family, no known etiology of hypoxemia. Patient has not had COPD, does not smoke, no other lung disease. Shortness of breath is not associated with chest pain, nausea or vomiting, fevers or chills, productive cough, unintended weight loss, night sweats, rash, or any other concerns. History was obtained via conversation with patient and . On arrival, patient hemodynamically stable, alert, oriented x4, appropriate, GCS 15, moving all extremities spontaneously, pupils equal and reactive to light. Full physical exam performed and significant for well- appearing woman in no acute distress. She is nontachypneic, but she does have oxygen saturation 87% on room air. Lungs are clear to auscultation bilaterally, minimal expiratory wheezes lower lung bowers. Cardiac exam within normal limits. Differential includes bronchitis, pneumonia, pneumothorax, PE, ACS, MO, CHF, among others. Patient was given DuoNeb, Solu-Medrol for symptomatic management and correction of underlying abnormalities. Workup independently interpreted and significant for nonactionable CBC or chemistry. Kidney function normal. Troponin negative, BNP negative. Chest x- ray without acute cardiopulmonary space disease, CTA of the chest without acute PE, or pneumonia. See radiology read for full review of final results. Independent interpretation of EKG shows sinus rhythm with no ST or T wave changes concerning for acute ischemia. OR 189, QRS 89, QTc 414. Normal axis. Patient placed on continuous cardiac monitoring and continuous pulse ox with initial blood pressure 122/67, heart rate 66, saturation 87% on room air, 95 with 2 L nasal cannula. Heart score 4. Patient was placed in observation beginning at 2 PM in order to rule out evolving MO with delta troponins and determine need for admission versus home-going. The patient was provided meds, monitoring while awaiting results. Independent interpretation of results demonstrated mildly hemoconcentrated. Nonactionable chemistry. Troponin and BNP negative. Chest x-ray without acute cardiopulmonary space disease. Prior to delta troponin, care handed to oncoming physician. Landfill Attendant disclaimer Much of this encounter note is an electronic chemist water purification spoken language to printed text. Electronic chemist water purification of the spoken language may permit errors. Although I have reviewed the note, some errors may still exist. <Zhane Henriquez, DO - Last Filed: 01/22/24 17:02> Vital Signs Vital Signs: 01/22/24 12:09 01/22/24 13:30 01/22/24 14:02 Temperature 97.8 F Temperature Source Oral Pulse Rate 64 72 Pulse Rate [Right] 66 Respiratory Rate 21 12 18 Blood Pressure 110/86 122/64 Blood Pressure [Right Arm] 122/67 Blood Pressure Mean Blood Pressure Mean [Right Arm] 85 Blood Pressure Source [Right Arm] Automatic Cuff 02 Sat by Pulse Oximetry 87 L 92 L 91 L Oxygen Delivery Method Room Air Oxygen Flow Rate (LPM) 01/22/24 14:31 01/22/24 15:00 01/22/24 15:30 Temperature Temperature Source Pulse Rate 72 68 Pulse Rate [Right] Respiratory Rate 22 13 13 Blood Pressure 139/70 125/66 120/83 Blood Pressure [Right Arm] Blood Pressure Mean Blood Pressure Mean [Right Arm] Blood Pressure Source [Right Arm] 02 Sat by Pulse Oximetry 95 95 Oxygen Delivery Method Nasal Cannula Nasal Cannula Oxygen Flow Rate (LPM) 2 2 01/22/24 16:00 01/22/24 16:15 01/22/24 16:31 Temperature Temperature Source Pulse Rate 69 69 68 Pulse Rate [Right] Respiratory Rate 14 15 13 Blood Pressure 116/65 135/65 Blood Pressure [Right Arm] Blood Pressure Mean 85 Blood Pressure Mean [Right Arm] Blood Pressure Source [Right Arm] 02 Sat by Pulse Oximetry 93 L 93 L 94 L Oxygen Delivery Method Nasal Cannula Oxygen Flow Rate (LPM) 2 2 Lab Data Labs: Lab Results 01/22/24 12:15: WBC 7.3, RBC 5.70 H, Hgb 18.8 H, Hct 58.6 H, MCV 102.9 H, MCH 33.0 H, MCHC 32.0, RDW 14.2, Plt Count 300, MPV 8.7, Neut % (Auto) 54.2, Lymph % (Auto) 33.0, Henry % (Auto) 6.4, Eos % (Auto) 2.7, Baso % (Auto) 3.8 H, Neut # (Auto) 3.9, Lymph # (Auto) 2.4, Henry # (Auto) 0.5, Eos # (Auto) 0.2, Baso # (Auto) 0.3 H, Sodium 139, Potassium 4.2, Chloride 100, Carbon Dioxide 31 H, Anion Gap 12.2, BUN 23 H, Creatinine 0.90, Estimated Creat Clear 49, Estimated GFR 61, Est GFR ( Amer) 74, Glucose 135 H, Calcium 10.0, Total Bilirubin 0.6, AST 40 H, ALT 23, Alkaline Phosphatase 103, Troponin I < 0.01, NT-Pro-B Natriuret Pep 151, Total Protein 7.7, Albumin 4.2, Globulin 3.5 H, Albumin/Globulin Ratio 1.2 01/22/24 12:36: VBG pH 7.38, VBG pCO2 45.7, VBG pO2 42.8 H, VBG HCO3 26.6, VBG Total CO2 28.0 H, VBG O2 Saturation 79.7 H, VBG Base Excess 1.5, VBG Lactic Acid 2.9 H 01/22/24 15:10: Troponin I < 0.01 Response Orders (Tests/Meds): ED MEDICATIONS Discontinued Medications Generic Name Dose Route Start Last Admin Trade Name Freq PRN Reason Stop Dose Admin Albuterol/Ipratropium 6 ml 01/22/24 12:33 01/22/24 12:44 Ipratropium/Albuterol 3 Ml Neb IH 01/22/24 12:34 6 ml ONCE ONE Administration Aspirin 324 mg 01/22/24 12:33 01/22/24 12:45 Aspirin 81mg Chewable Tablet PO 01/22/24 12:34 324 mg ONCE ONE Administration Iopamidol 70 ml 01/22/24 13:14 01/22/24 13:15 Iopamidol-370 (76%);100ml Bottle IV 01/22/24 13:15 70 ml ONCE ONE Administration Methylprednisolone Sodium Succinate 125 mg 01/22/24 14:59 01/22/24 15:07 Methylprednisolone Sod Succ 125mg Vial IV 01/22/24 15:00 125 mg ONCE ONE Administration Sodium Chloride 10 ml 01/22/24 13:14 01/22/24 13:15 Sodium Chloride 0.9% 10ml Syr (Rad Only) IV 01/22/24 13:15 10 ml ONCE ONE Administration Sodium Chloride 50 ml 01/22/24 13:14 01/22/24 13:15 0.9 % Sodium Chloride 50 Ml Vial IV 01/22/24 13:15 50 ml ONCE ONE Administration ORDERS Category Date Time Status CT angio chest PE protocol Stat Cat Scan 01/22/24 12:33 Completed POCUS Point of Care (ER Only) Stat Exams 01/22/24 14:06 Completed CBC w/Auto Diff [Complete Blood Count Auto Diff] Stat Lab 01/22/24 12:15 Completed CMP [Comprehensive Metabolic Panel] Stat Lab 01/22/24 12:15 Completed Complete Blood Count Auto Diff AMLAB Lab 01/23/24 06:00 Ordered Comprehensive Metabolic Panel AMLAB Lab 01/23/24 06:00 Ordered Full Resp Panel w/COVID (H) Routine Lab 01/22/24 16:35 Received Hemoglobin A1C Stat Lab 01/22/24 15:10 Received Magnesium AMLAB Lab 01/23/24 06:00 Ordered NT Pro Brain Natriuretic Pep. Stat Lab 01/22/24 12:15 Completed TSH [Thyroid Stimulating Hormone] Stat Lab 01/22/24 15:10 Received Trop I [Troponin I] Stat Lab 01/22/24 12:15 Completed Troponin I Q3H Lab 01/22/24 15:10 Completed Troponin I Q3H Lab 01/22/24 18:45 Ordered VBG [Venous Blood Gas] Stat RT 01/22/24 12:36 Completed MDM Narrative Medical Decision Narrative: 73-year-old female history of hypertension, diabetes, hyperlipidemia, subacute shortness of breath with primary care presenting with shortness of breath and cough. Patient's cough has been getting worse for about a week, but has been following with primary care for the last couple of weeks given chronic shortness of breath. Patient and state that patient's oxygen has been running low, and they are working with her primary care provider in order to hopefully get oxygen at the house. According to patient and family, no known etiology of hypoxemia. Patient has not had COPD, does not smoke, no other lung disease. Shortness of breath is not associated with chest pain, nausea or vomiting, fevers or chills, productive cough, unintended weight loss, night sweats, rash, or any other concerns. History was obtained via conversation with patient and . On arrival, patient hemodynamically stable, alert, oriented x4, appropriate, GCS 15, moving all extremities spontaneously, pupils equal and reactive to light. Full physical exam performed and significant for well- appearing woman in no acute distress. She is nontachypneic, but she does have oxygen saturation 87% on room air. Lungs are clear to auscultation bilaterally, minimal expiratory wheezes lower lung bowers. Cardiac exam within normal limits. Differential includes bronchitis, pneumonia, pneumothorax, PE, ACS, MO, CHF, among others. Patient was given DuoNeb, Solu-Medrol for symptomatic management and correction of underlying abnormalities. Workup independently interpreted and significant for nonactionable CBC or chemistry. Kidney function normal. Troponin negative, BNP negative. Chest x- ray without acute cardiopulmonary space disease, CTA of the chest without acute PE, or pneumonia. See radiology read for full review of final results. Independent interpretation of EKG shows sinus rhythm with no ST or T wave changes concerning for acute ischemia. OR 189, QRS 89, QTc 414. Normal axis. Patient placed on continuous cardiac monitoring and continuous pulse ox with initial blood pressure 122/67, heart rate 66, saturation 87% on room air, 95 with 2 L nasal cannula. Heart score 4. Patient was placed in observation beginning at 2 PM in order to rule out evolving MO with delta troponins and determine need for admission versus home-going. The patient was provided meds, monitoring while awaiting results. Independent interpretation of results demonstrated mildly hemoconcentrated. Nonactionable chemistry. Troponin and BNP negative. Chest x-ray without acute cardiopulmonary space disease. Prior to delta troponin, care handed to oncoming physician. Landfill Attendant disclaimer Much of this encounter note is an electronic chemist water purification spoken language to printed text. Electronic chemist water purification of the spoken language may permit errors. Although I have reviewed the note, some errors may still exist. DO Martinez: On my assessment, the patient is lying in bed in no acute distress. She was on 2 L nasal cannula, initial assessment with an O2 saturation of 96 to 97% while awake. I turned this off to see how she does weaning her off supplemental oxygen. I do feel interpreted CT scan prior to radiology read and noted no large PE. Radiology does note that she has mediastinal lymphadenopathy, which I notified the patient of. This could be infectious in the setting of her cough. No large pneumonia noted. At this time, I feel the patient would likely be appropriate for discharge home with treatment including doxycycline, prednisone, albuterol inhaler, and Bromfed for symptomatic improvement. Unfortunately, patient desaturated to 87% while awake and then 82 to 83% while sleeping. She does not have oxygen, CPAP, or anything of that sort at home, so I do not feel that it safe to send her home. Given this, I called and had an interactive discussion with the hospitalist, Dr. Ware, who admitted the patient.
[2024-01-22 12:43] LABS: VBG Base Excess 1.5 mmol/L (-2.4-2.3); VBG HCO3 26.6 mmol/L (23-30); VBG Oxygen Saturation 79.7 % (50-70); VBG PCO2 45.7 mmol/L (35-51); VBG PH 7.38 mmol/L (7.31-7.41); VBG PO2 42.8 mmol/L (28-40)
[2024-01-22 12:43] LABS: Eosinophils # 0.2 K/mm3 (0.0-0.4); Mean Corpuscular Volume 102.9 fl (81-99); Monocytes # 0.5 K/mm3 (0.1-1.0); Red Cell Distribution Width 14.2 % (11.5-17.5)
[2024-01-22] MEDS: IPRATROPIUM/ALBUTEROL 3 ML NEB 6 ML IH (12:44)
[2024-01-22 12:45] LABS: Chloride 100 mmol/L (98-107); Potassium 4.2 mmoL/L (3.5-5.1); Sodium 139 mmol/L (136-145)
[2024-01-22 12:45] LABS: Lactate Venous 2.9 mmol/L (0.4-2.0)
[2024-01-22] MEDS: ASPIRIN 81MG CHEWABLE TABLET 324 MG PO (12:45)
[2024-01-22 12:47] LABS: Blood Urea Nitrogen 23 mg/dl (7-17); Creatinine Clearance Estimated 49 mL/min (50-200); Estimated Glomerular Filt Rate 61 ml/min (>60); GFR (African American) 74 ML/MIN (>60)
[2024-01-22 12:48] LABS: Alanine Aminotransferase 23 U/L (12-78); Albumin Level 4.2 g/dl (3.5-5.0); Albumin/Globulin Ratio 1.2 (1.1-1.8); Alkaline Phosphatase 103 U/L (38-126); Anion Gap 12.2 mEq/L (5-15); Aspartate Amino Transferase 40 U/L (14-36); Bilirubin,Total 0.6 mg/dl (0.2-1.3); Carbon Dioxide 31 mmol/L (22.0-30.0); Globulin 3.5 g/dL (1.3-3.2); Total Protein,Serum 7.7 g/dl (6.3-8.2)
[2024-01-22 12:49] LABS: Basophils # 0.3 K/mm3 (0-0.2); Basophils % 3.8 % (0.1-2.0); Eosinophils % 2.7 % (0.1-12.0); Glucose 135 mg/dl (74-100); Hematocrit 58.6 % (37.0-47.0); Lymphocytes # 2.4 K/mm3 (0.7-4.5); Mean Platelet Volume 8.7 fl (7.4-10.4); Monocytes % 6.4 % (1.7-9.3); Neutrophils # 3.9 K/mm3 (1.8-7.8); Neutrophils % 54.2 % (37.0-80.0); Platelet Count 300 K/mm3 (142-424); White Blood Count 7.3 K/mm3 (4.8-10.8)
[2024-01-22 12:50] LABS: Hemoglobin 18.8 g/dL (12.2-16.2)
[2024-01-22 12:58] LABS: NT Pro Brain Natriuretic Pep. 151 pg/mL (0-450)
[2024-01-22 13:01] LABS: Troponin I < 0.01 ng/ml (0.00-0.034)
[2024-01-22] MEDS: IOPAMIDOL-370 (76%);100ML BOTTLE 70 ML IV (13:15)
[2024-01-22] MEDS: 0.9 % SODIUM CHLORIDE 50 ML VIAL IV (13:15)
[2024-01-22] MEDS: SODIUM CHLORIDE 0.9% 10ML SYR (RAD ONLY) 10 ML IV (13:15)
[2024-01-22] MEDS: METHYLPREDNISOLONE SOD SUCC 125MG VIAL 125 MG IV (15:07)
[2024-01-22 15:37] LABS: Troponin I < 0.01 ng/ml (0.00-0.034)
--- NOTE | 2024-01-22 16:23 | PC.NURSE ---
DR MEEKS IS SPEAKING TO DR CHACKO AT THIS TIME
--- NOTE | 2024-01-22 16:32 | PC.NURSE ---
HOUSE AWARE OF ADMISSION.
--- NOTE | 2024-01-22 16:35 | PC.NURSE ---
PER HOUSE PT IS GOING TO ROOM 211.
[2024-01-22 16:40] LABS: Adenovirus,PCR Not Detected (NotDetected)
[2024-01-22 16:41] LABS: Bordetella Pertussis Not Detected (NotDetected); Chlamydophila Pneumoniae, PCR Not Detected (NotDetected); Coronavirus 19, PCR Not Detected (NotDetected); Coronavirus 229E Not Detected (NotDetected); Coronavirus NL63 Not Detected (NotDetected); Coronavirus OC43 Not Detected (NotDetected); Coronovirus HKU1,PCR Not Detected (NotDetected); Human Metapneumovirus Not Detected (NotDetected); Influenza A, PCR Not Detected (NotDetected); Influenza AH1, 2009 Not Detected (NotDetected); Influenza AH1, PCR Not Detected (NotDetected); Influenza AH3,PCR Not Detected (NotDetected); Influenza B, PCR Not Detected (NotDetected); Mycoplasma Pneumoniae, PCR Not Detected (NotDetected); Parainfluenza 1, PCR Not Detected (NotDetected); Parainfluenza 2, PCR Not Detected (NotDetected); Parainfluenza 4, PCR Not Detected (NotDetected); Respiratory Syncytial Virus Not Detected (NotDetected); Rhinovirus/Enterovirus Not Detected (NotDetected)
[2024-01-22 16:46] LABS: Reflex Lactic Add Lactic Reflex
[2024-01-22 17:03] LABS: Hemoglobin A1C 6.9 % (4.0-6.0)
--- NOTE | 2024-01-22 17:03 | PC.NURSE ---
CALLED REPORT TO EYAD MCCORMACK
[2024-01-22 17:12] LABS: Thyroid Stimulating Hormone 0.85 uIU/mL (0.465-4.68)
--- NOTE | 2024-01-22 17:31 | PC.NURSE ---
arrived by w/c from ED
--- NOTE | 2024-01-22 17:51 | EXP.HP ---
History of Present Illness *Admission Date: 01/22/24 *Reason for visit:: dyspnea *History of present illness: Ms. Fuller is a 73-year-old female with history of hypertension, see OPD hyper Magalie, diabetes. She presented to the ER because of mild shortness of breath for the past month. Symptoms got worse over the past 4 to 5 days where she has developed cough and increased shortness of breath. Checked her oxygen at home today and said that it was in the 60s. Came to the ER for evaluation. Was satting in the mid 80s on room air. Workup in the ER concerning for bronchitis with hypoxia. Initiated on 2 L nasal cannula for sats greater than 90%. Denies chest pain, nausea, vomiting, diarrhea. No fevers or rigors at home. No confusion. No headache. Denies any dizziness. Just feels weak and has no energy. Given her new oxygen requirement, medicine consulted for admission. Patient states she saw her PCP earlier this week and had O2 sats in the 70s. They were working on getting her set up with oxygen. Started her on antibiotics and Tessalon Perles for sinus infection . Appears ill but nontoxic on exam. Currently on 2 L nasal cannula oxygen. [facility] Disclaimer: The information contained in this section may have been updated after the patient was seen, as this information can be updated by other users. Medical History (Updated 01/22/24 @ 18:46 by Mario Alberto Ware MD) Hypothyroid Hyperlipidemia Hypertension SOB (shortness of breath) on exertion Diabetes mellitus, type 2 Hypertension Surgical History History of tonsillectomy History of cholecystectomy Family History Other Family history of acute congestive heart failure Family history of hypertension Social History Smoking Status: Never smoker second hand exposure: No alcohol intake: never substance use type: denies use current occupational status: retired Travel in the last 8 weeks: None household members: spouse housing: house current occupational exposures/hazards: No caffeine: No Review of Systems Review of Systems Review of systems (narrative): 14 point review of systems performed, pertinent positives and negatives as per HPI Meds Home Medications and Allergies Home Medications Medication Instructions Recorded Confirmed Type ropinirole 1 mg tablet 1 mg PO BID RLS 02/24/18 01/22/24 History aspirin 81 mg chewable tablet 81 mg PO DAILY heart health 07/19/18 01/22/24 History atorvastatin 10 mg tablet 10 mg PO DAILY 02/19/23 01/22/24 History levothyroxine 50 mcg tablet 50 mcg PO DAILY 02/19/23 01/22/24 History carvedilol 6.25 mg tablet (Coreg) 6.25 mg PO BID #180 tabs 06/09/23 01/22/24 Rx lisinopril 40 mg tablet 40 mg PO DAILY #90 tabs 06/09/23 01/22/24 Rx gabapentin 800 mg tablet 800 mg PO TID 07/10/23 01/22/24 History insulin glargine 100 40 unit SQ DAILY 07/10/23 01/22/24 History unit-lixisenatide 33 mcg/mL subcutaneous pen (Soliqua 100/33) blood sugar diagnostic (True #10 ea 01/18/24 01/18/24 History Metrix Glucose Test Strip) fluticasone fur. 100 mcg-umeclid See Rx Instructions .Route 01/18/24 01/22/24 History 62.5 mcg-vilant 25 mcg .COMPLEX PRN NO inhalat.powder (Trelegy Ellipta) lancets 33 gauge (TRUEplus Lancets) #100 ea 01/18/24 01/18/24 History paroxetine HCl 30 mg tablet 30 mg PO DAILY 01/18/24 01/22/24 History pen needle, diabetic 31 gauge x #100 ea 01/18/24 01/18/24 History 1/4 (Droplet Pen Needle) pen needle, diabetic 32 gauge x #100 ea 01/18/24 01/18/24 History 1/4 (BD Ultra-Fine Micro Pen Needle) benzonatate 200 mg capsule 200 mg PO TID Cough 01/22/24 01/22/24 History cephalexin 500 mg capsule 500 mg PO TID Sinus Infection 01/22/24 01/22/24 History New Prescriptions to Start Prescriptions: Allergies Allergy/AdvReac Type Severity Reaction Status Date / Time Penicillins [PENICILLINS] Allergy Unknown I-HIVES Verified 01/18/24 14:26 promethazine [PROMETHAZINE] Allergy Unknown MAKES Verified 05/20/24 14:26 CRAZY EXACERBATES RLS Exam Data for Last 24 hours Vital signs and Labs for Last 24 Hours: Temp Pulse Resp BP Pulse Ox O2 Del Method O2 Flow Rate 98.5 F 75 18 131/76 97 Room Air 2 01/22/24 17:48 01/22/24 17:48 01/22/24 17:48 01/22/24 17:48 01/22/24 17:48 01/22/24 17:48 01/22/24 17:00 Laboratory Results - last 24 hr 01/22/24 12:15: WBC 7.3, RBC 5.70 H, Hgb 18.8 H, Hct 58.6 H, MCV 102.9 H, MCH 33.0 H, MCHC 32.0, RDW 14.2, Plt Count 300, MPV 8.7, Neut % (Auto) 54.2, Lymph % (Auto) 33.0, [place] % (Auto) 6.4, Eos % (Auto) 2.7, Baso % (Auto) 3.8 H, Neut # (Auto) 3.9, Lymph # (Auto) 2.4, [place] # (Auto) 0.5, Eos # (Auto) 0.2, Baso # (Auto) 0.3 H, Sodium 139, Potassium 4.2, Chloride 100, Carbon Dioxide 31 H, Anion Gap 12.2, BUN 23 H, Creatinine 0.90, Estimated Creat Clear 49, Estimated GFR 61, Est GFR ( Amer) 74, Glucose 135 H, Calcium 10.0, Total Bilirubin 0.6, AST 40 H, ALT 23, Alkaline Phosphatase 103, Troponin I < 0.01, NT-Pro-B Natriuret Pep 151, Total Protein 7.7, Albumin 4.2, Globulin 3.5 H, Albumin/Globulin Ratio 1.2 01/22/24 12:36: VBG pH 7.38, VBG pCO2 45.7, VBG pO2 42.8 H, VBG HCO3 26.6, VBG Total CO2 28.0 H, VBG O2 Saturation 79.7 H, VBG Base Excess 1.5, VBG Lactic Acid 2.9 H 01/22/24 15:10: Hemoglobin A1c 6.9 H, Troponin I < 0.01, TSH 0.85 01/22/24 17:00: Lactate 1.0 I & O for Last 24 hours: Intake & Output 01/19/24 01/20/24 01/21/24 01/22/24 23:59 23:59 23:59 23:59 Weight 71.384 kg Constitutional Constitutional: no acute distress *Routine HEENT Exam Head: Present normocephalic Eye: Present EOMI and PERRL ENT: Present mucous membranes moist *Routine Neck Exam Neck: Present supple; Absent lymphadenopathy *Routine Respiratory Exam Respiratory: Present prolonged expiratory phase, wheezes (expiratory) and normal respiratory effort; Absent rhonchi or crackles *Routine Cardiovascular Exam Cardiovascular: Present RRR *Routine Abdominal Exam Abdominal: Present soft and normoactive bowel sounds; Absent tenderness *Routine Rectal Exam Rectal:: deferred *Routine Genitalia Exam Genitalia:: deferred *Routine Extremities Exam Extremities: Absent cyanosis, clubbing or edema *Routine Skin Exam Skin: Present warm; Absent rash *Routine Neurological Exam Neurological: Present alert, oriented X3 and moving all extremities; Absent altered mental status Assessment and Plan *Assessment and plan (1) Acute hypoxemic respiratory failure: Status: Acute Category: Medical Code(s): J96.01 - Acute respiratory failure with hypoxia (2) Parainfluenza virus bronchitis: Status: Acute Category: Medical Code(s): J20.4 - Acute bronchitis due to parainfluenza virus (3) COPD with exacerbation: Status: Acute Category: Medical Code(s): J44.1 - Chronic obstructive pulmonary disease with (acute) exacerbation (4) Mediastinal adenopathy: Status: Acute Category: Medical Code(s): R59.0 - Localized enlarged lymph nodes (5) Hyperlipidemia: Status: Chronic Qualifiers: Hyperlipidemia type: mixed hyperlipidemia Qualified Code(s): E78.2 - Mixed hyperlipidemia Category: Medical Code(s): E78.5 - Hyperlipidemia, unspecified (6) Hypertension: Status: Chronic Qualifiers: Hypertension type: primary hypertension Qualified Code(s): I10 - Essential (primary) hypertension Category: Medical Code(s): I10 - Essential (primary) hypertension (7) Diabetes mellitus, type 2: Status: Chronic Qualifiers: Diabetes mellitus complication status: without complication Diabetes mellitus halfway insulin use: without long term acute care registered nurse use Qualified Code(s): E11.9 - Type 2 diabetes mellitus without complications Category: Medical Code(s): E11.9 - Type 2 diabetes mellitus without complications (8) Hypothyroid: Status: Chronic Category: Medical Code(s): E03.9 - Hypothyroidism, unspecified Plan Ms. Fuller is a pleasant 73-year-old female who never smoked but has had over 40 years of exposure to secondhand smoke. She presented to the ER with worsening cough and shortness of breath over the past 4 to 5 days. Found to be hypoxic on presentation. Given new oxygen requirement and failure of outpatient therapy with antibiotics, medicine was consulted for admission. Discussed case with ER, request admission for supplemental oxygen and further workup. Medicine agreed to admit. Comprehensive respiratory panel obtained showing parainfluenza 3. Likely because of her COPD exacerbation and hypoxia. Necessitating inpatient admission. Problems addressed as follows: COPD exacerbation Acute hypoxemic respiratory failure Parainfluenza 3 infection -Reviewed chest CT, has hilar lymphadenopathy, likely reactive. Negative for PE, no focal consolidation. Positive for parainfluenza 3. -Continue supplemental oxygen as needed, goal sats greater 90%. Wean as tolerated. On 2 L nasal cannula on evaluation. -DuoNebs every 6 hours scheduled -Methylprednisolone in the ER, continue prednisone 40 mg daily for 5 days -On Keflex as an outpatient, given viral etiology, no indication for cephalosporins. Will treat with azithromycin course for dual benefit. 500 mg IV today, reevaluate transitioning to 100 mg daily for 4 more days versus 500 for 2 more days. -Tessalon Perles 200 mg as needed 3 times a day for cough -Continue Trelegy 100 inhaler daily Hypertension hyperlipidemia -continue home regimen of aspirin 81 mg daily, Lipitor 10 mg daily, carvedilol 6.25 mg twice daily, lisinopril 40 mg daily Anxiety: Continue Paxil 30 mg daily Hypothyroid: TSH 0.85, well-controlled. continue 50 mcg levothyroxine daily Diabetic neuropathy: Continue gabapentin 800 mg 3 times a day Diabetes: A1c 6.9. On Soliqua daily 40 units, holding at this time. Will continue sliding scale insulin during admission. Fingersticks ACHS COPD: Continue Trelegy daily. DuoNeb scheduled every 6 hours. Continue Tessalon Perles 200 mg 3 times a day as needed for cough Continue ropinirole 1 mg twice daily for restless leg syndrome Full code Diabetic diet Lovenox 40 mg subcu daily
[2024-01-22 18:01] LABS: POC Glucose,Bedside 109 (70-110)
--- NOTE | 2024-01-22 18:05 | PC.NURSE ---
Pt to the floor from ER. Oriented to room. No family present currently. Pt denies needs at present
[2024-01-22 18:15] LABS: Parainfluenza 3, PCR Detected (NotDetected)
[2024-01-22] MEDS: IPRATROPIUM/ALBUTEROL 3 ML NEB IH (18:52)
[2024-01-22 19:32] LABS: Troponin I < 0.01 ng/ml (0.00-0.034)
[2024-01-22] MEDS: ENOXAPARIN 40MG/0.4ML SYRINGE 40 MG SQ (19:33)
[2024-01-22 19:43] LABS: POC Glucose,Bedside 185 (70-110)
[2024-01-22] MEDS: AZITHROMYCIN 500 MG in 0.9 % SODIUM CHLORIDE 250 ML 250 MG IV (20:36)
[2024-01-22] MEDS: BENZONATATE 200 MG 200 EACH PO (20:37)
[2024-01-22] MEDS: GABAPENTIN 800MG TABLET 800 MG PO (20:37)
[2024-01-22] MEDS: humaLOG 100 UNITS/ML 3ML VIAL (SSI) SQ (20:38)
[2024-01-22] MEDS: CARVEDILOL 6.25MG TABLET 6.25 MG PO (20:38)
[2024-01-22] MEDS: ROPINIROLE 1MG TABLET 1 MG PO (20:38)
--- NOTE | 2024-01-22 22:21 | PC.NURSE ---
PATIENT C/O INTERMITTANT NAUSEA. DR MEZA NOTIFIED AND ORDERING ZOFRAN.
[2024-01-22] MEDS: ONDANSETRON 4MG/2ML VIAL 4 MG IV (22:27)
[2024-01-23 00:36] VITALS: PULSE 75
[2024-01-23] MEDS: IPRATROPIUM/ALBUTEROL 3 ML NEB IH ×2 (00:36→06:26)
[2024-01-23 04:00] VITALS: BP 127/67; PULSE 78; RESP 17; TEMP 36.6; O2SAT 97; BMI 30.4
--- NOTE | 2024-01-23 04:05 | PC.NURSE ---
No further reports of nausea since 2226 when received iv zofran 4 mg. a/o x 4. vital signs stable. 02 at 2lnc. 02 sats at 94%. ambulatory to BR assist x 1. Gait slight unsteady. some dizziness reported. dry cough noted. Fine Crackles bilat lung bases. Remains in contact/dropplet precautions due to influenza virus.
[2024-01-23] MEDS: humaLOG 100 UNITS/ML 3ML VIAL (SSI) SQ (05:38)
[2024-01-23 05:42] LABS: POC Glucose,Bedside 273 (70-110)
[2024-01-23 06:27] VITALS: PULSE 71; PULSE 75; O2SAT 97
[2024-01-23 07:50] LABS: Alanine Aminotransferase 40 U/L (12-78); Albumin Level 4.1 g/dl (3.5-5.0); Albumin/Globulin Ratio 1.2 (1.1-1.8); Alkaline Phosphatase 101 U/L (38-126); Anion Gap 18.4 mEq/L (5-15); Aspartate Amino Transferase 71 U/L (14-36); Bilirubin,Total 0.8 mg/dl (0.2-1.3); Blood Urea Nitrogen 34 mg/dl (7-17); Calcium 9.1 mg/dl (8.4-10.2); Carbon Dioxide 26 mmol/L (22.0-30.0); Chloride 97 mmol/L (98-107); Creatinine Clearance Estimated 56 mL/min (50-200); Estimated Glomerular Filt Rate 54 ml/min (>60); GFR (African American) 65 ML/MIN (>60); Globulin 3.3 g/dL (1.3-3.2); Glucose 292 mg/dl (74-100); Magnesium 2.1 mg/dl (1.6-2.3); Potassium 4.4 mmoL/L (3.5-5.1); Sodium 137 mmol/L (136-145); Total Protein,Serum 7.4 g/dl (6.3-8.2)
[2024-01-23 08:00] VITALS: BP 131/68; PULSE 85; RESP 18; TEMP 36.6; O2SAT 97
[2024-01-23 08:02] LABS: Basophils # 0.1 K/mm3 (0-0.2); Basophils % 0.7 % (0.1-2.0); Eosinophils % 0.1 % (0.1-12.0); Hematocrit 55.5 % (37.0-47.0); Hemoglobin 17.3 g/dL (12.2-16.2); Lymphocytes # 1.5 K/mm3 (0.7-4.5); Lymphocytes % 20.1 % (10-50); Mean Corpuscular HGB Conc 31.1 g/dL (31.8-35.4); Mean Corpuscular Hemoglobin 33.3 pg (27.0-31.2); Mean Platelet Volume 8.8 fl (7.4-10.4); Monocytes # 0.1 K/mm3 (0.1-1.0); Monocytes % 1.6 % (1.7-9.3); Neutrophils # 5.7 K/mm3 (1.8-7.8); Neutrophils % 77.4 % (37.0-80.0); Platelet Count 289 K/mm3 (142-424); Red Blood Count 5.19 M/mm3 (4.20-5.40); Red Cell Distribution Width 13.8 % (11.5-17.5); White Blood Count 7.3 K/mm3 (4.8-10.8)
--- NOTE | 2024-01-23 08:03 | P.DS_ITS ---
General Admission date:: 01/22/24 Discharge date: 01/23/24 HPI HPI HPI: Ms. Fuller is a 73-year-old female with history of hypertension, see OPD hyper Magalie, diabetes. She presented to the ER because of mild shortness of breath for the past month. Symptoms got worse over the past 4 to 5 days where she has developed cough and increased shortness of breath. Checked her oxygen at home today and said that it was in the 60s. Came to the ER for evaluation. Was satting in the mid 80s on room air. Workup in the ER concerning for bronchitis with hypoxia. Initiated on 2 L nasal cannula for sats greater than 90%. Denies chest pain, nausea, vomiting, diarrhea. No fevers or rigors at home. No confusion. No headache. Denies any dizziness. Just feels weak and has no energy. Given her new oxygen requirement, medicine consulted for admission. Patient states she saw her PCP earlier this week and had O2 sats in the 70s. They were working on getting her set up with oxygen. Started her on antibiotics and Tessalon Perles for sinus infection . Appears ill but nontoxic on exam. Currently on 2 L nasal cannula oxygen. Hospital Course Hospital Course Hospital Course: Ms. Fuller is a pleasant 73-year-old female who never smoked but has had over 40 years of exposure to secondhand smoke. She presented to the ER with worsening cough and shortness of breath over the past 4 to 5 days. Found to be hypoxic on presentation. Given new oxygen requirement and failure of outpatient therapy with antibiotics, medicine was consulted for admission. Discussed case with ER, request admission for supplemental oxygen and further workup. Medicine agreed to admit. Comprehensive respiratory panel obtained showing parainfluenza 3. Likely because of her COPD exacerbation and hypoxia. Necessitating inpatient admission. Did well during admission, able to wean to room air. Tolerating p.o. intake. Stable to discharge home to continue to convalesce. Problems addressed as follows: COPD exacerbation Acute hypoxemic respiratory failure Parainfluenza 3 infection -Reviewed chest CT, has hilar lymphadenopathy, likely reactive. Negative for PE, no focal consolidation. Positive for parainfluenza 3. Initiated on azithromycin and steroids. Supplemental oxygen initially on admission. Weaned overnight, stable on room air. Room air sats are in in the 90s at rest on day of discharge. Patient was walked in the halls for approximately 6 minutes in room and in the 90s on room air. Plan to continue long-acting Trelegy inhaler 100 daily at home. Provided with albuterol inhaler with spacer on day of discharge as rescue device for any symptomatic shortness of breath. Transition to prednisone 40 mg daily to complete 5 days. Will complete empiric course of azithromycin with 4 more doses of 250 mg daily. Continue Tessalon Perles for cough. Given clinical stability and diagnosis of viral respiratory illness, stable to discharge home. Hypertension hyperlipidemia -continue home regimen of aspirin 81 mg daily, Lipitor 10 mg daily, carvedilol 6.25 mg twice daily, lisinopril 40 mg daily Anxiety: Continue Paxil 30 mg daily Hypothyroid: TSH 0.85, well-controlled. continue 50 mcg levothyroxine daily Diabetic neuropathy: Continue gabapentin 800 mg 3 times a day Diabetes: A1c 6.9. On Soliqua daily 40 units. Sliding scale insulin during admission. Resume Soliqua at discharge. COPD: Continue Trelegy daily. DuoNeb scheduled every 6 hours. Continue Tessalon Perles 200 mg 3 times a day as needed for cough Continue ropinirole 1 mg twice daily for restless leg syndrome Total time spent on discharge 32 minutes in counseling, documentation, chart review, and direct care with patient. Exam Data for Last 24 hours Vital signs and Labs for Last 24 Hours: Temp Pulse Resp BP Pulse Ox O2 Del Method O2 Flow Rate 97.9 F 75 17 127/67 97 Nasal Cannula 2.5 01/23/24 04:00 01/23/24 06:27 01/23/24 04:00 01/23/24 04:00 01/23/24 06:27 01/23/24 06:27 01/23/24 06:27 Laboratory Results - last 24 hr 01/22/24 12:15: WBC 7.3, RBC 5.70 H, Hgb 18.8 H, Hct 58.6 H, MCV 102.9 H, MCH 33.0 H, MCHC 32.0, RDW 14.2, Plt Count 300, MPV 8.7, Neut % (Auto) 54.2, Lymph % (Auto) 33.0, [place] % (Auto) 6.4, Eos % (Auto) 2.7, Baso % (Auto) 3.8 H, Neut # (Auto) 3.9, Lymph # (Auto) 2.4, [place] # (Auto) 0.5, Eos # (Auto) 0.2, Baso # (Auto) 0.3 H, Sodium 139, Potassium 4.2, Chloride 100, Carbon Dioxide 31 H, Anion Gap 12.2, BUN 23 H, Creatinine 0.90, Estimated Creat Clear 49, Estimated GFR 61, Est GFR ( Amer) 74, Glucose 135 H, Calcium 10.0, Total Bilirubin 0.6, AST 40 H, ALT 23, Alkaline Phosphatase 103, Troponin I < 0.01, NT-Pro-B Natriuret Pep 151, Total Protein 7.7, Albumin 4.2, Globulin 3.5 H, Albumin/Globulin Ratio 1.2 01/22/24 12:36: VBG pH 7.38, VBG pCO2 45.7, VBG pO2 42.8 H, VBG HCO3 26.6, VBG Total CO2 28.0 H, VBG O2 Saturation 79.7 H, VBG Base Excess 1.5, VBG Lactic Acid 2.9 H 01/22/24 15:10: Hemoglobin A1c 6.9 H, Troponin I < 0.01, TSH 0.85 01/22/24 16:35: Chlamy pneumoniae PCR Not detected, Adenovirus (PCR) Not detected, B. pertussis DNA (PCR) Not detected, Coronavirus OC43 (PCR) Not detected, Coronavirus HKU1 (PCR) Not detected, Coronavirus 229E (PCR) Not detected, SARS-CoV-2 (PCR) Not detected, Coronavirus NL63 (PCR) Not detected, Human Metapneumovir PCR Not detected, Influenza A (H1) PCR Not detected, Influ A (H1N1/09) PCR Not detected, Influenza A (H3) PCR Not detected, Influenza Type A (PCR) Not detected, Influenza Type B (PCR) Not detected, M. pneumoniae (PCR) Not detected, Parainfluenza 1 (PCR) Not detected, Parainfluenza 2 (PCR) Not detected, Parainfluenza 3 (PCR) Detected A, Parainfluenza 4 (PCR) Not detected, RSV (PCR) Not detected, Entero/Rhino (PCR) Not detected 01/22/24 17:00: Lactate 1.0 01/22/24 17:53: POC Glucose 109 01/22/24 18:56: Troponin I < 0.01 01/22/24 19:35: POC Glucose 185 H 01/23/24 05:35: POC Glucose 273 H 01/23/24 07:10: Sodium 137, Potassium 4.4, Chloride 97 L, Carbon Dioxide 26, Anion Gap 18.4 H, BUN 34 H D, Creatinine 1.00, Estimated Creat Clear 56, Estimated GFR 54 L, Est GFR ( Amer) 65, Glucose 292 H D, Calcium 9.1, Magnesium 2.1, Total Bilirubin 0.8, AST 71 H D, ALT 40 D, Alkaline Phosphatase 101, Total Protein 7.4, Albumin 4.1, Globulin 3.3 H, Albumin/Globulin Ratio 1.2 I & O for Last 24 hours: Intake & Output 01/20/24 01/21/24 01/22/24 01/23/24 23:59 23:59 23:59 23:59 Intake Total 811 / 811 Output Total Balance 810 / 810 - Weight 71.384 kg 73.255 kg Constitutional Constitutional: no acute distress, average body habitus, chronically ill appearing and cooperative *Routine HEENT Exam Head: Present normocephalic Eye: Present EOMI and PERRL ENT: Present mucous membranes moist *Routine Neck Exam Neck: Present supple; Absent lymphadenopathy *Routine Respiratory Exam Respiratory: Present prolonged expiratory phase and rhonchi; Absent wheezes or crackles *Routine Cardiovascular Exam Cardiovascular: Present RRR *Routine Abdominal Exam Abdominal: Present soft and normoactive bowel sounds; Absent tenderness *Routine Rectal Exam Patient deferred: visual exam *Routine Exam Patient deferred: external exam *Routine Extremities Exam Extremities: Absent cyanosis, clubbing or edema *Routine Skin Exam Skin: Present warm; Absent rash *Routine Neurological Exam Neurological: Present alert, oriented X3 and moving all extremities; Absent altered mental status Results Data Completed and Pending Labs on day of discharge: Labs from last 24 hours 01/23/24 01/23/24 01/22/24 07:10 05:35 19:35 WBC RBC Hgb Hct MCV MCH MCHC RDW Plt Count MPV Neut % (Auto) Lymph % (Auto) [place] % (Auto) Eos % (Auto) Baso % (Auto) Neut # (Auto) Lymph # (Auto) [place] # (Auto) Eos # (Auto) Baso # (Auto) VBG pH VBG pCO2 VBG pO2 VBG HCO3 VBG Total CO2 VBG O2 Saturation VBG Base Excess VBG Lactic Acid Sodium 137 Potassium 4.4 Chloride 97 L Carbon Dioxide 26 Anion Gap 18.4 H BUN 34 H D Creatinine 1.00 Estimated Creat Clear 56 Estimated GFR 54 L Est GFR ( Amer) 65 Glucose 292 H D POC Glucose 273 H 185 H Hemoglobin A1c Lactate Calcium 9.1 Magnesium 2.1 Total Bilirubin 0.8 AST 71 H D ALT 40 D Alkaline Phosphatase 101 Troponin I NT-Pro-B Natriuret Pep Total Protein 7.4 Albumin 4.1 Globulin 3.3 H Albumin/Globulin Ratio 1.2 TSH Chlamy pneumoniae PCR Adenovirus (PCR) B. pertussis DNA (PCR) Coronavirus OC43 (PCR) Coronavirus HKU1 (PCR) Coronavirus 229E (PCR) SARS-CoV-2 (PCR) Coronavirus NL63 (PCR) Human Metapneumovir PCR Influenza A (H1) PCR Influ A (H1N1/09) PCR Influenza A (H3) PCR Influenza Type A (PCR) Influenza Type B (PCR) M. pneumoniae (PCR) Parainfluenza 1 (PCR) Parainfluenza 2 (PCR) Parainfluenza 3 (PCR) Parainfluenza 4 (PCR) RSV (PCR) Entero/Rhino (PCR) 01/22/24 01/22/24 01/22/24 18:56 17:53 17:00 WBC RBC Hgb Hct MCV MCH MCHC RDW Plt Count MPV Neut % (Auto) Lymph % (Auto) [place] % (Auto) Eos % (Auto) Baso % (Auto) Neut # (Auto) Lymph # (Auto) [place] # (Auto) Eos # (Auto) Baso # (Auto) VBG pH VBG pCO2 VBG pO2 VBG HCO3 VBG Total CO2 VBG O2 Saturation VBG Base Excess VBG Lactic Acid Sodium Potassium Chloride Carbon Dioxide Anion Gap BUN Creatinine Estimated Creat Clear Estimated GFR Est GFR ( Amer) Glucose POC Glucose 109 Hemoglobin A1c Lactate 1.0 Calcium Magnesium Total Bilirubin AST ALT Alkaline Phosphatase Troponin I < 0.01 NT-Pro-B Natriuret Pep Total Protein Albumin Globulin Albumin/Globulin Ratio TSH Chlamy pneumoniae PCR Adenovirus (PCR) B. pertussis DNA (PCR) Coronavirus OC43 (PCR) Coronavirus HKU1 (PCR) Coronavirus 229E (PCR) SARS-CoV-2 (PCR) Coronavirus NL63 (PCR) Human Metapneumovir PCR Influenza A (H1) PCR Influ A (H1N1/) PCR Influenza A (H3) PCR Influenza Type A (PCR) Influenza Type B (PCR) M. pneumoniae (PCR) Parainfluenza 1 (PCR) Parainfluenza 2 (PCR) Parainfluenza 3 (PCR) Parainfluenza 4 (PCR) RSV (PCR) Entero/Rhino (PCR) 01/22/24 01/22/24 01/22/24 16:35 15:10 12:36 WBC RBC Hgb Hct MCV MCH MCHC RDW Plt Count MPV Neut % (Auto) Lymph % (Auto) [place] % (Auto) Eos % (Auto) Baso % (Auto) Neut # (Auto) Lymph # (Auto) [place] # (Auto) Eos # (Auto) Baso # (Auto) VBG pH 7.38 VBG pCO2 45.7 VBG pO2 42.8 H VBG HCO3 26.6 VBG Total CO2 28.0 H VBG O2 Saturation 79.7 H VBG Base Excess 1.5 VBG Lactic Acid 2.9 H Sodium Potassium Chloride Carbon Dioxide Anion Gap BUN Creatinine Estimated Creat Clear Estimated GFR Est GFR ( Amer) Glucose POC Glucose Hemoglobin A1c 6.9 H Lactate Calcium Magnesium Total Bilirubin AST ALT Alkaline Phosphatase Troponin I < 0.01 NT-Pro-B Natriuret Pep Total Protein Albumin Globulin Albumin/Globulin Ratio TSH 0.85 Chlamy pneumoniae PCR Not detected Adenovirus (PCR) Not detected B. pertussis DNA (PCR) Not detected Coronavirus OC43 (PCR) Not detected Coronavirus HKU1 (PCR) Not detected Coronavirus 229E (PCR) Not detected SARS-CoV-2 (PCR) Not detected Coronavirus NL63 (PCR) Not detected Human Metapneumovir PCR Not detected Influenza A (H1) PCR Not detected Influ A (H1N1/09) PCR Not detected Influenza A (H3) PCR Not detected Influenza Type A (PCR) Not detected Influenza Type B (PCR) Not detected M. pneumoniae (PCR) Not detected Parainfluenza 1 (PCR) Not detected Parainfluenza 2 (PCR) Not detected Parainfluenza 3 (PCR) Detected A Parainfluenza 4 (PCR) Not detected RSV (PCR) Not detected Entero/Rhino (PCR) Not detected 01/22/24 12:15 WBC 7.3 RBC 5.70 H Hgb 18.8 H Hct 58.6 H MCV 102.9 H MCH 33.0 H MCHC 32.0 RDW 14.2 Plt Count 300 MPV 8.7 Neut % (Auto) 54.2 Lymph % (Auto) 33.0 [place] % (Auto) 6.4 Eos % (Auto) 2.7 Baso % (Auto) 3.8 H Neut # (Auto) 3.9 Lymph # (Auto) 2.4 [place] # (Auto) 0.5 Eos # (Auto) 0.2 Baso # (Auto) 0.3 H VBG pH VBG pCO2 VBG pO2 VBG HCO3 VBG Total CO2 VBG O2 Saturation VBG Base Excess VBG Lactic Acid Sodium 139 Potassium 4.2 Chloride 100 Carbon Dioxide 31 H Anion Gap 12.2 BUN 23 H Creatinine 0.90 Estimated Creat Clear 49 Estimated GFR 61 Est GFR ( Amer) 74 Glucose 135 H POC Glucose Hemoglobin A1c Lactate Calcium 10.0 Magnesium Total Bilirubin 0.6 AST 40 H ALT 23 Alkaline Phosphatase 103 Troponin I < 0.01 NT-Pro-B Natriuret Pep 151 Total Protein 7.7 Albumin 4.2 Globulin 3.5 H Albumin/Globulin Ratio 1.2 TSH Chlamy pneumoniae PCR Adenovirus (PCR) B. pertussis DNA (PCR) Coronavirus OC43 (PCR) Coronavirus HKU1 (PCR) Coronavirus 229E (PCR) SARS-CoV-2 (PCR) Coronavirus NL63 (PCR) Human Metapneumovir PCR Influenza A (H1) PCR Influ A (H1N1/09) PCR Influenza A (H3) PCR Influenza Type A (PCR) Influenza Type B (PCR) M. pneumoniae (PCR) Parainfluenza 1 (PCR) Parainfluenza 2 (PCR) Parainfluenza 3 (PCR) Parainfluenza 4 (PCR) RSV (PCR) Entero/Rhino (PCR) DS: Diagnosis Discharge Diagnosis (1) Acute hypoxemic respiratory failure: Status: Acute Code(s): J96.01 - Acute respiratory failure with hypoxia (2) Parainfluenza virus bronchitis: Status: Acute Code(s): J20.4 - Acute bronchitis due to parainfluenza virus (3) COPD with exacerbation: Status: Acute Code(s): J44.1 - Chronic obstructive pulmonary disease with (acute) exacerbation (4) Mediastinal adenopathy: Status: Acute Code(s): R59.0 - Localized enlarged lymph nodes (5) Hyperlipidemia: Status: Chronic Code(s): E78.5 - Hyperlipidemia, unspecified Qualifiers: Hyperlipidemia type: mixed hyperlipidemia Qualified Code(s): E78.2 - Mixed hyperlipidemia (6) Hypertension: Status: Chronic Code(s): I10 - Essential (primary) hypertension Qualifiers: Hypertension type: primary hypertension Qualified Code(s): I10 - Essential (primary) hypertension (7) Diabetes mellitus, type 2: Status: Chronic Code(s): E11.9 - Type 2 diabetes mellitus without complications Qualifiers: Diabetes mellitus complication status: without complication Diabetes mellitus superintendent container terminal insulin use: without superintendent container terminal use Qualified Code(s): E11.9 - Type 2 diabetes mellitus without complications (8) Hypothyroid: Status: Chronic Code(s): E03.9 - Hypothyroidism, unspecified Meds Home Medications and Allergies Home Medications Medication Instructions Recorded Confirmed Type ropinirole 1 mg tablet 1 mg PO BID RLS 02/24/18 01/22/24 History aspirin 81 mg chewable tablet 81 mg PO DAILY heart health 07/19/18 01/22/24 History atorvastatin 10 mg tablet 10 mg PO DAILY 02/19/23 01/22/24 History levothyroxine 50 mcg tablet 50 mcg PO DAILY 02/19/23 01/22/24 History carvedilol 6.25 mg tablet (Coreg) 6.25 mg PO BID #180 tabs 06/09/23 01/22/24 Rx lisinopril 40 mg tablet 40 mg PO DAILY #90 tabs 06/09/23 01/22/24 Rx gabapentin 800 mg tablet 800 mg PO TID 07/10/23 01/22/24 History insulin glargine 100 40 unit SQ DAILY 07/10/23 01/22/24 History unit-lixisenatide 33 mcg/mL subcutaneous pen (Soliqua 100/33) blood sugar diagnostic (True #10 ea 01/18/24 01/18/24 History Metrix Glucose Test Strip) fluticasone fur. 100 mcg-umeclid See Rx Instructions .Route 05/20/24 05/24/24 History 62.5 mcg-vilant 25 mcg .COMPLEX PRN NO inhalat.powder (Trelegy Ellipta) lancets 33 gauge (TRUEplus Lancets) #100 ea 01/18/24 01/18/24 History paroxetine HCl 30 mg tablet 30 mg PO DAILY 01/18/24 01/22/24 History pen needle, diabetic 31 gauge x #100 ea 01/18/24 01/18/24 History 1/4 (Droplet Pen Needle) pen needle, diabetic 32 gauge x #100 ea 01/18/24 01/18/24 History 1/4 (BD Ultra-Fine Micro Pen Needle) benzonatate 200 mg capsule 200 mg PO TID Cough 01/22/24 01/22/24 History albuterol sulfate 90 mcg/actuation 2 puff inhalation Q6HP PRN 01/23/24 Rx aerosol inhaler (Ventolin HFA) Shortness Of Breath 30 days #1 ea azithromycin 250 mg tablet 250 mg PO DAILY 4 days #4 tabs 01/23/24 Rx prednisone 20 mg tablet 40 mg (2 x 20 mg) PO DAILY 3 days 01/23/24 Rx #6 tabs New Prescriptions to Start Prescriptions: Mario Alberto Dacosta prednisone Mario Alberto Ware Allergies Allergy/AdvReac Type Severity Reaction Status Date / Time Penicillins [PENICILLINS] Allergy Unknown I-HIVES Verified 01/18/24 14:26 promethazine [PROMETHAZINE] Allergy Unknown MAKES Verified 01/18/24 14:26 CRAZY EXACERBATES RLS Discharge Plan Disposition Patient Disposition: Home, Self-Care Condition: Good Follow up Plan Follow up with: Stas Sher MD [Primary Care Provider] - Enter time for follow up (call thursday the for follow up appointment. offices closed for thursday ) Prescriptions/Medication Reconciliation: New prednisone 20 mg Tablet 40 mg PO DAILY 3 Days Qty: 6 0RF albuterol sulfate [Ventolin HFA] 90 mcg/actuation Hfa Aerosol Inhaler 2 puff inhalation Q6HP PRN (Reason: Shortness Of Breath) 30 Days Qty: 1 0RF azithromycin 250 mg tablet 250 mg PO DAILY 4 Days Qty: 4 0RF Continued ropinirole 1 mg tablet 1 mg PO BID atorvastatin 10 mg tablet 10 mg PO DAILY levothyroxine 50 mcg tablet 50 mcg PO DAILY Patient Comments: TAKE 1 TABLET BY MOUTH ONCE DAILY IN THE MORNING ON AN EMPTY STOMACH gabapentin 800 mg tablet 800 mg PO TID Soliqua 100/33 100 unit-33 mcg/mL insulin pen 40 unit SQ DAILY (DME) True Metrix Glucose Test Strip Strip See Rx Instructions .ROUTE .MEDSUPPLY Qty: 10 Rx Instructions: As directed paroxetine HCl 30 mg tablet 30 mg PO DAILY (DME) pen needle, diabetic [Droplet Pen Needle] 31 gauge x 1/4 needle See Rx Instructions .ROUTE .MEDSUPPLY Qty: 100 Rx Instructions: As directed (DME) pen needle, diabetic [BD Ultra-Fine Micro Pen Needle] 32 gauge x 1/4 needle See Rx Instructions .ROUTE .MEDSUPPLY Qty: 100 Patient Comments: USE WITH INSULIN ONCE DAILY Rx Instructions: As directed (DME) lancets [TRUEplus Lancets] 33 gauge misc See Rx Instructions .ROUTE .MEDSUPPLY Qty: 100 Rx Instructions: As directed Trelegy Ellipta 100-62.5-25 mcg blister with device See Rx Instructions .ROUTE .COMPLEX PRN (Reason: NO) Rx Instructions: EVERY MORNING carvedilol [Coreg] 6.25 mg tablet 6.25 mg PO BID Qty: 180 3RF Rx Instructions: must administer with a meal/food lisinopril 40 mg tablet 40 mg PO DAILY Qty: 90 3RF benzonatate 200 mg Capsule 200 mg PO TID aspirin 81 MG tablet,chewable 81 mg PO DAILY Discontinued cephalexin 500 mg Capsule 500 mg PO TID Problem Reconciliation Problems Reviewed?: Yes Patient Discharge Instructions ACTIVITY: Continue current activity DIET: continue same diet Patient Instructions: Acute Bronchitis, DI for Hypoxia Providers Primary Care Provider: Stas Sher Admit Provider: Mario Alberto Ware Attending Provider: Mario Alberto Ware
[2024-01-23] MEDS: FLUTICASONE/UMECLIDIN/VILANTER 100/62.5/25MCG INHALER 1 PUFF IH (09:07)
[2024-01-23 09:46] VITALS: PULSE 84; O2SAT 93
--- NOTE | 2024-01-23 09:46 | PC.NURSE ---
Pt walked out in the hallway doing a full lap. Getting the pt back to bed; her room air stat was 94 and heart rate was 84.
[2024-01-23] MEDS: GABAPENTIN 800MG TABLET 800 MG PO (09:50)
[2024-01-23] MEDS: ATORVASTATIN 10MG TABLET 10 MG PO (09:51)
[2024-01-23] MEDS: LEVOTHYROXINE 50MCG (0.05MG) TAB 50 MCG PO (09:51)
[2024-01-23] MEDS: CARVEDILOL 6.25MG TABLET 6.25 MG PO (09:51)
[2024-01-23] MEDS: ASPIRIN 81MG CHEWABLE TABLET 81 MG PO (09:51)
[2024-01-23] MEDS: PARoxetine 20MG TABLET 30 MG PO (09:51)
[2024-01-23] MEDS: ROPINIROLE 1MG TABLET 1 MG PO (09:51)
[2024-01-23] MEDS: LISINOPRIL 20MG TABLET 40 MG PO (09:51)
[2024-01-23] MEDS: predniSONE 20MG TAB 40 MG PO (09:51)
--- NOTE | 2024-01-27 11:18 | CARE MANAGER ---
Called and spoke with patient regarding recent discharge. Patient stated that she had a f/u appt with Dr. Sher yesterday. She stated that she was feeling short of breath at time of call but was sating 90% at time of call. I explained that she should f/u with PCP or come to our ER if SOA continues and/or if saturations fall into the 80s.
== END 2024-01-23 10:50 | disposition home or self-care (01) ==
LOC: ER 16:30 → 2ND 17:01
PROVIDERS: Admitting Provider Internal Medicine Adolescent Medicine; Emergency Provider Emergency Medicine; PCP Family Medicine; Visit Provider Internal Medicine Adolescent Medicine
DX: J96.01 Acute respiratory failure with hypoxia (principal); J20.4 Acute bronchitis due to parainfluenza virus; J44.1 Chronic obstructive pulmonary disease with (acute) exacerbation; E78.2 Mixed hyperlipidemia; I10 Essential (primary) hypertension; E11.9 Type 2 diabetes mellitus without complications; E03.9 Hypothyroidism, unspecified; Z99.81 Dependence on supplemental oxygen; E11.40 Type 2 diabetes mellitus with diabetic neuropathy, unspecified; Z79.4 Long term (current) use of insulin
CPT/HCPCS: 36415; 71275; 80053; 82803; 82962; 83036; 83605; 83735; 83880; 84443; 84484; 85025; 87581; 87632; 87635; 87798; 93005; 94640; G0378; J0456; J2405; Q9967

== ENCOUNTER 2024-06-27 01:35 | Inpatient (IN) | payer MEDICARE, SELFPAY ==
[2024-06-27] VITALS (65 sets, daily range): BP systolic 89–187; BP diastolic 44–113; PULSE 80–145; RESP 12–28; TEMP 37.4–37.9; O2SAT 92–100; BMI 34.3; BMI 34.1
--- NOTE | 2024-06-27 01:51 | XR_ITS ---
PROCEDURE INFORMATION: Exam: XR Chest Exam date and time: 06/27/2024 1:43 AM Age: 73 years old Clinical indication: Device placement; Ett placement (vent status); Additional info: Et placement TECHNIQUE: Imaging protocol: Radiologic exam of the chest. Views: 1 view. COMPARISON: No relevant prior studies available. FINDINGS: Tubes, catheters and devices: ET tube is in good position. Lungs: Patchy bilateral airspace disease is noted somewhat more prominent on the right than the left. Pleural spaces: Unremarkable. No pleural effusion. No pneumothorax. Heart/Mediastinum: Unremarkable. No cardiomegaly. Bones/joints: Unremarkable. IMPRESSION: ET tube is in good position. Patchy bilateral airspace disease is noted somewhat more prominent on the right than the left.
[2024-06-27] MEDS: propofoL 100 ML 2.72 MG IV (01:55)
--- NOTE | 2024-06-27 01:57 | ED_ITS ---
Discharge Plan Disposition Patient Disposition: Admitted Prescriptions Prescriptions: No Action ropinirole 1 mg tablet 1 mg PO BID atorvastatin 10 mg tablet 10 mg PO DAILY levothyroxine 50 mcg tablet 50 mcg PO DAILY Patient Comments: TAKE 1 TABLET BY MOUTH ONCE DAILY IN THE MORNING ON AN EMPTY STOMACH gabapentin 800 mg tablet 800 mg PO TID Soliqua 100/33 100 unit-33 mcg/mL insulin pen 40 unit SQ DAILY (DME) True Metrix Glucose Test Strip Strip See Rx Instructions .ROUTE .MEDSUPPLY Qty: 10 Rx Instructions: As directed paroxetine HCl 30 mg tablet 30 mg PO DAILY (DME) pen needle, diabetic [Droplet Pen Needle] 31 gauge x 1/4 needle See Rx Instructions .ROUTE .MEDSUPPLY Qty: 100 Rx Instructions: As directed (DME) pen needle, diabetic [BD Ultra-Fine Micro Pen Needle] 32 gauge x 1/4 needle See Rx Instructions .ROUTE .MEDSUPPLY Qty: 100 Patient Comments: USE WITH INSULIN ONCE DAILY Rx Instructions: As directed (DME) lancets [TRUEplus Lancets] 33 gauge misc See Rx Instructions .ROUTE .MEDSUPPLY Qty: 100 Rx Instructions: As directed Trelegy Ellipta 100-62.5-25 mcg blister with device See Rx Instructions .ROUTE .COMPLEX PRN (Reason: NO) Rx Instructions: EVERY MORNING lisinopril 40 mg tablet 40 mg PO DAILY Qty: 90 3RF carvedilol [Coreg] 6.25 mg tablet 6.25 mg PO BID Qty: 180 3RF Rx Instructions: must administer with a meal/food albuterol sulfate [Ventolin HFA] 90 mcg/actuation Hfa Aerosol Inhaler 2 puff inhalation Q6HP PRN (Reason: Shortness Of Breath) 30 Days Qty: 1 0RF aspirin 81 MG tablet,chewable 81 mg PO DAILY Referrals Follow up/Referrals: Stas Sher MD [Primary Care Provider] - See instructions Clinical Impressions Clinical Impression: Pneumonia, Pulmonary edema Respiratory failure Qualifiers: Chronicity: acute Respiratory failure complication: hypoxia Qualified Code(s): J96.01 - Acute respiratory failure with hypoxia Print Language Print Language: Maori Discharge ED Provider: Avinash Arias Adult HPI General Stated complaint: sob Time Seen by Provider: 06/27/24 01:35 History of Present Illness HPI narrative: 73-year-old female with reported history of hypertension hyperlipidemia and diabetes, intermittent oxygen use at home presents for acute onset shortness of breath. History obtained per family. They report that she went to gnosticism today and was acting normally until this evening. She did have a nosebleed at 1 point but it stopped spontaneously. At around midnight she came to the woman who lives with her and said that she was feeling very short of breath and needed to go to the hospital. On the way to the hospital the patient became unresponsive and passed out twice. Upon arrival to the ER patient is blue, agonal breathing and minimally responsive. No further history able to be obtained at this time. Related Data Home Medications ?Medication ?Instructions ?Recorded ?Confirmed ropinirole 1 mg tablet 1 mg PO BID RLS 02/24/18 04/21/24 aspirin 81 mg chewable tablet 81 mg PO DAILY heart health 07/19/18 04/21/24 atorvastatin 10 mg tablet 10 mg PO DAILY 02/19/23 04/21/24 levothyroxine 50 mcg tablet 50 mcg PO DAILY 02/19/23 04/21/24 gabapentin 800 mg tablet 800 mg PO TID 07/10/23 04/21/24 insulin glargine 100 40 unit SQ DAILY 07/10/23 04/21/24 unit-lixisenatide 33 mcg/mL subcutaneous pen (Soliqua 100/33) blood sugar diagnostic (True #10 ea 01/18/24 04/21/24 Metrix Glucose Test Strip) fluticasone fur. 100 mcg-umeclid See Rx Instructions .Route 01/18/24 04/21/24 62.5 mcg-vilant 25 mcg .COMPLEX PRN NO inhalat.powder (Trelegy Ellipta) lancets 33 gauge (TRUEplus Lancets) #100 ea 01/18/24 04/21/24 paroxetine HCl 30 mg tablet 30 mg PO DAILY 01/18/24 04/21/24 pen needle, diabetic 31 gauge x #100 ea 01/18/24 04/21/2409/03 (Droplet Pen Needle) pen needle, diabetic 32 gauge x #100 ea 01/18/24 04/21/2409/03 (BD Ultra-Fine Micro Pen Needle) Previous Rx's ?Medication ?Instructions ?Recorded lisinopril 40 mg tablet 40 mg PO DAILY #90 tabs 06/09/23 albuterol sulfate 90 mcg/actuation 2 puff inhalation Q6HP PRN 01/23/24 aerosol inhaler (Ventolin HFA) Shortness Of Breath 30 days #1 ea carvedilol 6.25 mg tablet (Coreg) 6.25 mg PO BID #180 tabs 04/11/24 Allergies Allergy/AdvReac Type Severity Reaction Status Date / Time Penicillins [PENICILLINS] Allergy Unknown I-HIVES Verified 04/21/24 10:18 promethazine [PROMETHAZINE] Allergy Unknown MAKES Verified 04/21/24 10:18 CRAZY EXACERBATES RLS PFSH [facility] Disclaimer: The information contained in this section may have been updated after the patient was seen, as this information can be updated by other users. Medical History Hypothyroid Hyperlipidemia Hypertension SOB (shortness of breath) on exertion Diabetes mellitus, type 2 Hypertension Surgical History History of tonsillectomy History of cholecystectomy Family History Other Family history of acute congestive heart failure Family history of hypertension Social History Smoking Status: Never smoker second hand exposure: No alcohol intake: never substance use type: denies use current occupational status: retired Travel in the last 8 weeks: None household members: spouse housing: house current occupational exposures/hazards: No caffeine: No Other Medical History Have you received the Flu Vaccine for this season: No Have you received the Pneumonia Vaccine: No ROS Obtained: Yes unobtainable due to endotracheal tube Physical Exam General General appearance: obtunded Comment: Obtunded, cyanotic Head Head exam: atraumatic and normocephalic Eye Eye exam: Present normal appearance, PERRL and EOMI ENT ENT exam: Present normal oropharynx and normal external ear exam Neck Neck exam: Present normal inspection and full ROM Chest Chest inspection: Present normal inspection and symmetric chest wall rise; Absent tenderness Respiratory Respiratory exam: Present respiratory distress and other (Slow irregular breathing, gasping. Coarse breath sounds on the right. No wheezing) Cardiovascular Cardiovascular exam: Present normal rhythm Abdominal Exam Abdominal exam: Present soft; Absent distention or guarding Extremities Exam Extremities exam: Present normal inspection and edema; Absent joint swelling Back Exam Back exam: Present normal inspection Neurological Exam Neurological exam: Present other (Initial GCS 3) Skin Skin exam: Present cyanosis Lymphatic Lymphatic Findings: no adenopathy Medical Decision Making Medical Records Medical records reviewed: Yes I reviewed the patient's medical records. Screening: Per USPSTF and CDC recommendations, given the prevalence of disease in our region, it is our hospital?s policy to screen for HIV and viral Hepatitis for all patients aged 18 and over and those with ongoing risk factors. Brayan Inquiry Pt receiving controlled substance: No Brayan was queried for this patient: No Vital Signs: 06/27/24 03:07 Respiratory Rate 20 Lab Data Lab results reviewed: Yes I reviewed the patient's lab results. Lab Results 06/27/24 01:50: WBC 16.6 H, RBC 5.47 H, Hgb 17.8 H, Hct 54.6 H, MCV 99.9 H, MCH 32.6 H, MCHC 32.6, RDW 14.3, Plt Count 537 H, MPV 8.8, Neut % (Auto) 58.7, Lymph % (Auto) 31.8, [place] % (Auto) 4.5, Eos % (Auto) 2.5, Baso % (Auto) 2.5 H, Neut # (Auto) 9.8 H, Lymph # (Auto) 5.3 H, [place] # (Auto) 0.7, Eos # (Auto) 0.4, Baso # (Auto) 0.4 H, Total Counted 100, Neutrophils % (Manual) 51, Lymphocytes % (Manual) 34, Atypical Lymphs % 2.0, Monocytes % (Manual) 6, Eosinophils % (Manual) 3, Basophils % (Manual) 4.0 H, Platelet Estimate Slight increase, Anisocytosis 1+, PT 11.9, INR 1.07, Sodium 141, Potassium 4.7, Chloride 102, Carbon Dioxide 22, Anion Gap 21.7 H, BUN 10, Creatinine 0.90, Estimated GFR 61, Est GFR ( Amer) 74, Glucose 176 H, Calcium 8.8, Magnesium 1.9, Total Bilirubin 1.4 H, AST 60 H, ALT 42, Alkaline Phosphatase 75, Troponin I < 0.01, N T-Pro-B Natriuret Pep 1090 H, Total Protein 7.1, Albumin 4.1, Globulin 3.0, Albumin/Globulin Ratio 1.4, SARS-CoV-2 (PCR) Not detected, Influenza A Untype (PCR) Not detected, Influenza Type B (PCR) Not detected 06/27/24 02:51: Specimen Source Right radial, O2 % 100, ABG pH 7.37, ABG pCO2 42.3, ABG pO2 101.2 H, ABG HCO3 23.7, ABG Total CO2 25.0, ABG O2 Saturation 98, ABG Base Excess -1.7, Rafael Test Y, Vent Rate 20, Tidal Volume 380, PEEP 5 06/27/24 03:30: Urine Color Yellow, Urine Appearance Slightly cloudy, Urine pH 5.5, Ur Specific [place] >= 1.030, Urine Protein 2+ A, Urine Glucose (UA) Negative, Urine Ketones Negative, Urine Blood 1+ A, Urine Nitrate Negative, Urine Bilirubin Negative, Urine Urobilinogen 1.0, Ur Leukocyte Esterase Negative, Urine RBC 10-20, Urine WBC 5-10, Ur Squamous Epith Cells 5-10, Amorphous Sediment Trace, Urine Bacteria 1+, Hyaline Casts Occ 06/27/24 01:50 06/27/24 01:50 Orders (Tests/Meds): ED MEDICATIONS Generic Name Dose Route Start Last Admin Trade Name Freq PRN Reason Stop Dose Admin Furosemide 40 mg 06/27/24 09:00 Furosemide 40mg/4ml Vial IV 07/27/24 08:59 BID [facility] Cefepime HCl 1 gm/ Sodium 50 mls @ 100 mls/hr 06/27/24 04:00 Chloride IV 07/07/24 03:59 Q12H [facility] Miscellaneous 1 each 06/27/24 04:00 Vancomycin Consult Request NOTAPPLIC 07/27/24 03:59 CONSULT PHARMACY [facility] Sodium Chloride 10 ml 06/27/24 03:27 06/27/24 03:28 Sodium Chloride 0.9% 10ml Syr (Rad Only) IV 07/27/24 03:26 10 ml NEEDED PRN Administration Maintain IV Site Discontinued Medications Generic Name Dose Route Start Last Admin Trade Name Freq PRN Reason Stop Dose Admin Albuterol/Ipratropium 6 ml 06/27/24 03:09 Ipratropium/Albuterol 3 Ml Neb IH 06/27/24 03:10 ONCE ONE Furosemide 80 mg 06/27/24 03:45 Furosemide 40mg/4ml Vial IV 06/27/24 03:46 ONCE ONE Levofloxacin/Dextrose 750 mg in 150 mls @ 100 mls/hr 06/27/24 02:13 06/27/24 02:42 Levofloxacin 750mg/150ml Premix IV 06/27/24 03:42 100 mls/hr ONCE ONE Administration Iopamidol 70 ml 06/27/24 03:27 06/27/24 03:28 Iopamidol-370 (76%);100ml Bottle IV 06/27/24 03:28 70 ml ONCE ONE Administration Sodium Chloride 40 ml 06/27/24 03:27 06/27/24 03:28 0.9 % Sodium Chloride 50 Ml Vial IV 06/27/24 03:28 40 ml ONCE ONE Administration ORDERS Category Date Time Status CT angio chest PE protocol Stat Cat Scan 06/27/24 02:[address] head/brain wo con Stat Cat Scan 06/27/24 02:04 Completed CXR --portable [XR chest portable] Stat Exams 06/27/24 01:51 Completed BNP [NT Pro Brain Natriuretic Pep.] Stat Lab 06/27/24 01:50 Completed CBC w/Auto Diff [Complete Blood Count Auto Diff] Stat Lab 06/27/24 01:50 Completed CMP [Comprehensive Metabolic Panel] Stat Lab 06/27/24 01:50 Completed Full Resp Panel w/COVID ([facility]) Routine Lab 06/27/24 03:21 Ordered INR [Prothrombin Time INR] Stat Lab 06/27/24 01:50 Completed Lactate Venous Stat Lab 06/27/24 01:50 Received Magnesium Stat Lab 06/27/24 01:50 Completed Rapid PCR Covid and Flu A/B Stat Lab 06/27/24 01:50 Completed Troponin I Q3H Lab 06/27/24 01:50 Completed Troponin I Q3H Lab 06/27/24 05:15 Ordered UA [Urinalysis and Microscopic] Stat Lab 06/27/24 03:30 Completed Blood Culture Stat Micro 06/27/24 01:50 Received Arterial Blood Gas Routine RT 06/27/24 02:51 Completed VBG [Venous Blood Gas] Stat RT 06/27/24 02:10 Ordered ECG Data Tracing #1: I reviewed this ECG and interpreted as documented below: Sinus rhythm, rate of 98, incomplete right bundle, no ST changes consistent with STEMI. ECG initial impression date: 06/27/24 ECG initial impression time: 01:54 HEART Score History (anamnesis): Slightly suspicious ECG: Non-specific disturbance Age: >65 years Risk factors: 3 or more risk factors Troponin: </= normal limit HEART Score: 5 Medical Decision Narrative: 73-year-old female with reported history of of diabetes presents for relatively acute onset shortness of breath. By the time of arrival patient is obtunded, breathing irregular, with perioral cyanosis. History was obtained via interactive discussion with patient's family. On arrival, patient is hypoxic to the 30s, tachycardic to the 130s, normotensive, unresponsive. Full physical exam performed and significant for coarse breath sounds on the right. Upon arrival patient was immediately bagged with improvement in sats. IV access was obtained. Patient was intubated with a 7.5 ET tube, 18 at the lip. Confirmed on my interpretation of postintubation x-ray. Postintubation x-ray is also concerning for pneumonia with airspace disease bilaterally, worse on the right. Differential includes but is not limited to viral/bacterial pneumonia, PE, heart failure/flash pulmonary edema, ACS, tamponade, intracranial pathology, Patient was given Levaquin for pneumonia as she has a penicillin allergy. She was placed on propofol for sedation. Workup initiated including CT head, CTA chest, CBC CMP troponin BNP EKG chest x-ray mag VBG. On re-evaluation, patient remains hemodynamically stable. Laboratories studies interpreted by me and significant for leukocytosis, negative COVID flu, mildly elevated bilirubin and AST, blood gas after intubation shows normal pH, normal pCO2. Imaging independently interpreted by me and significant for no evidence of acute intracranial bleeding, bilateral airspace disease consistent with pneumonia and likely pulmonary edema.. See radiology read for full review of final results. Given patient history, exam and workup, patient's presentation most likely represents pneumonia and heart failure causing acute hypoxic respiratory failure and coma requiring intubation. Patient was initiated on 80 mg of IV Lasix. Interactive discussion was had with hospitalist on-call for admission. Procedures Risk/Benefits of Procedure(s) Were Explained: Yes Intubation Mallampati Score:: Class I Time out performed: Yes sedative: Etomidate Mg Given: 15 paralytic: Succinylcholine Mg Given: 80 Laryngoscope: Peggy (3) Assist Device Used: other (glide) ET Tube Size: 7.5 Tube Secured Depth (cm): 18 Tube Secured Location: lips Tube Placement Confirmation: visualized tube passing through cords, equal breath sounds bilaterally and confirmation by capnometry Patient Tolerated Procedure: well Intubation Complications: none Critical Care Critical Care Time Critical Care Time: Yes Attestation: On 06/27/24, the high probability of a clinically significant, sudden or life threatening deterioration of the following system(s) respiratory, cardiac required my full and direct attention, intervention and personal management. The time I documented below is in addition to time spent performing reported procedures but includes the following listed in this critical care notation. Total Time Total Critical Care Time: 70
--- NOTE | 2024-06-27 02:04 | CT_ITS ---
PROCEDURE INFORMATION: Exam: CTA Chest With Contrast Exam date and time: 06/27/2024 3:22 AM Age: 73 years old Clinical indication: Other: Hypoxia, PT coded; Additional info: Hypoxia, AMS TECHNIQUE: Imaging protocol: Computed tomographic angiography of the chest with contrast. Exam focused on the arteries. 3D rendering (Not supervised by radiologist): MIP and/or 3D reconstructed images were created by the technologist. Radiation optimization: All CT scans at this facility use at least one of these dose optimization techniques: automated exposure control; mA and/or kV adjustment per patient size (includes targeted exams where dose is matched to clinical indication); or iterative reconstruction. Contrast material: ISOVUE 370; Contrast volume: 75 ml; Contrast route: INTRAVENOUS (IV); COMPARISON: CT ANGIO CHEST PE PROTOCOL 01/22/2024 1:09 PM FINDINGS: Tubes, catheters and devices: The ET tube and NG tube are in good position. Pulmonary arteries: Normal. No pulmonary emboli. Aorta: Unremarkable. No aortic aneurysm. No aortic dissection. Lungs: Interlobular septal thickening is present bilaterally. Diffuse ground-glass opacity. Basilar atelectasis. Pleural spaces: Moderate-sized bilateral pleural effusions are new since prior examination. Heart: Moderate cardiomegaly. Reflux of contrast into the IVC is noted consistent with elevated right heart pressures. Coronary arteries: Small amount of coronary artery calcium. Lymph nodes: Unremarkable. No enlarged lymph nodes. Bones/joints: Unremarkable. No acute fracture. Soft tissues: Unremarkable. IMPRESSION: 1. No evidence of pulmonary embolus. 2. Coronary atherosclerosis, cardiomegaly, bilateral pleural effusions, interlobular septal thickening and diffuse ground-glass opacity consistent with pulmonary edema and congestive failure. 3. ET tube and NG tube in good position. 4. Reflux of contrast into the IVC consistent with probable right heart failure.
--- NOTE | 2024-06-27 02:04 | CT_ITS ---
PROCEDURE INFORMATION: Exam: CT Head Without Contrast Exam date and time: 06/27/2024 3:19 AM Age: 73 years old Clinical indication: Altered mental status/memory loss; Other: Coded; Additional info: AMS TECHNIQUE: Imaging protocol: Computed tomography of the head without contrast. Radiation optimization: All CT scans at this facility use at least one of these dose optimization techniques: automated exposure control; mA and/or kV adjustment per patient size (includes targeted exams where dose is matched to clinical indication); or iterative reconstruction. COMPARISON: CT ANGIO HEAD WITH W/O 03/05/2023 1:06 PM FINDINGS: Brain: There is diffuse prominence of the cerebral sulci, cisterns, and ventricles consistent with atrophy. No intra or extra-axial fluid collections are noted. No mass or mass effect is seen. Periventricular white matter hypoattenuation is seen consistent with chronic small vessel disease. Cerebral ventricles: No ventriculomegaly. Paranasal sinuses: Visualized sinuses are unremarkable. No fluid levels. Mastoid air cells: Visualized mastoid air cells are well aerated. Bones: Unremarkable. No acute fracture. Soft tissues: Unremarkable. IMPRESSION: No acute process noted.
[2024-06-27 02:18] LABS: Coronavirus 19, PCR Not Detected (NotDetected); Influenza A, PCR Not Detected (NotDetected); Influenza B, PCR Not Detected (NotDetected)
[2024-06-27 02:23] LABS: Basophils # 0.4 K/mm3 (0-0.2); Basophils % 2.5 % (0.1-2.0); Eosinophils # 0.4 K/mm3 (0.0-0.4); Eosinophils % 2.5 % (0.1-12.0); Hematocrit 54.6 % (37.0-47.0); Hemoglobin 17.8 g/dL (12.2-16.2); Lymphocytes # 5.3 K/mm3 (0.7-4.5); Lymphocytes % 31.8 % (10-50); Mean Corpuscular HGB Conc 32.6 g/dL (31.8-35.4); Mean Corpuscular Hemoglobin 32.6 pg (27.0-31.2); Mean Corpuscular Volume 99.9 fl (81-99); Mean Platelet Volume 8.8 fl (7.4-10.4); Monocytes # 0.7 K/mm3 (0.1-1.0); Monocytes % 4.5 % (1.7-9.3); Neutrophils # 9.8 K/mm3 (1.8-7.8); Neutrophils % 58.7 % (37.0-80.0); Platelet Count 537 K/mm3 (142-424); Red Blood Count 5.47 M/mm3 (4.20-5.40); Red Cell Distribution Width 14.3 % (11.5-17.5); White Blood Count 16.6 K/mm3 (4.8-10.8)
[2024-06-27 02:26] LABS: Alanine Aminotransferase 42 U/L (12-78); Albumin Level 4.1 g/dl (3.5-5.0); Albumin/Globulin Ratio 1.4 (1.1-1.8); Alkaline Phosphatase 75 U/L (38-126); Anion Gap 21.7 mEq/L (5-15); Aspartate Amino Transferase 60 U/L (14-36); Bilirubin,Total 1.4 mg/dl (0.2-1.3); Blood Urea Nitrogen 10 mg/dl (7-17); Calcium 8.8 mg/dl (8.4-10.2); Carbon Dioxide 22 mmol/L (22.0-30.0); Chloride 102 mmol/L (98-107); Estimated Glomerular Filt Rate 61 ml/min (>60); GFR (African American) 74 ML/MIN (>60); Glucose 176 mg/dl (74-100); INR 1.07 (0.9-1.1); MANUAL DIFFERENTIAL MANUAL DIFFERENTIAL (MANUAL DIFF); Magnesium 1.9 mg/dl (1.6-2.3); Potassium 4.7 mmoL/L (3.5-5.1); Prothrombin Time 11.9 seconds (10.1-12.5); Sodium 141 mmol/L (136-145); Total Protein,Serum 7.1 g/dl (6.3-8.2)
--- NOTE | 2024-06-27 02:30 | ECG_ITS ---
APPROVED REPORT Exam: Resting ECG HR:98 bpm ECG Measurements Heart Rate 98 AXES AR 191 P -23 QRSd 103 QRS -61 QT 354 T 104 QTc 410 Conclusion SINUS RHYTHM WITH FREQUENT VENTRICULAR PREMATURE COMPLEXES LEFT AXIS DEVIATION [QRS AXIS < -30] INCOMPLETE RIGHT BUNDLE BRANCH BLOCK [90+ ms QRS DURATION, TERMINAL R IN V1/V2, 40+ ms S IN I/aVL/V4/V5/V6] POSSIBLE ANTERIOR MYOCARDIAL INFARCTION , OF INDETERMINATE AGE [30 ms Q WAVE IN V3/V4, OR R < 0.2 mV IN V4] MODERATE T-WAVE ABNORMALITY, CONSIDER LATERAL ISCHEMIA [-0.1+ mV T-WAVE IN I/aVL/V5/V6] ABNORMAL ECG INTERPRETATION BASED ON A DEFAULT AGE OF 40 YEARS UNCONFIRMED REPORT Electronically signed by : AILEEN MCCURDY, 06/27/2024 06:36:40
[2024-06-27 02:38] LABS: NT Pro Brain Natriuretic Pep. 1090 pg/mL (0-450); Troponin I < 0.01 ng/ml (0.00-0.034)
[2024-06-27] MEDS: LEVOFLOXACIN/D5W 750 MG/150 ML 750 MG/150 ML PIGGYBACK 100 MG IV (02:42)
[2024-06-27 02:49] LABS: Anisocytosis 1+; Eosinophils % 3 % (0-3); Lymphocytes % 34 % (10-50); Monocytes % 6 % (2-9); Neutrophils % 51 % (42-76); Platelet Estimate Slight Increase; Total Cells Counted 100
[2024-06-27 02:53] LABS: ABG Base Excess -1.7 mmol/L (-2.4-2.3); ABG HCO3 23.7 mmhg (22.0-26.0); ABG Oxygen Saturation 98 % (90-100); ABG PCO2 42.3 mmhg (35.0-45.0); ABG PH 7.37 mmol/L (7.35-7.45); ABG PO2 101.2 mmhg (80-100)
[2024-06-27 02:54] LABS: Allen's Test Y; Oxygen 100 %; PEEP 5; Source Right Radial; Tidal Volume 380; Vent Rate 20
--- NOTE | 2024-06-27 03:00 | PC.NURSE ---
Event Note: 0132- Call from registration to notify the need for pt assist out of car. 0133- This RN to car and noted the pt to be unresponsive, agonal breathing, and cyanotic lips & fingers. Pt did have a strong pulse. I called for additional ER support, O2, and stretcher. 0134- Pt placed on stretcher & staff proceeded to get her in ER room 0135- room air sat 29%, HR 138. Ambu-bag applied to pt with 100% O2. 0136- Started PIV 20g to RAC. sat 68%-ambu bag continues. HR 140. FS141. Preparing for intubation. Dr. Arias ordered Rocuronium 15mg, Etomidate 80mg for RSI meds. Kit pulled. 0140- sat 83% ambu bag continues, HR 140, RR 20 (assisted), BP 143/92, attempting to obtain 2nd PIV. 0145- Etomidate & Rocuronium given to pt by Dr. Arias 0146- 7.5 ETT placed and secured at depth of 18cm. positive color change, equal chest rise. Sat 98% via mechanical ventilation, HR 137, RR 25. 0150- sat 99% assisted, HR 120, RR 18 (assisted), BP 168/103 0153- EKG completed. Dr. Arias placed u/s guided 18g IV 0155- sat 99% assisted, HR 95, RR 16 (assisted), BP 144/93 0200- sat 92% assisted, HR 83, RR 17 (assisted, and moving pt to trauma rm 3 0205- 16 fr temp sensing flynn placed by Derick Rangel RN, scant urine noted. sat 96% via vent, HR 86, RR 20, temp 98, BP 139/92 0210- placed 16 fr [place] sump OGT and secured to 63 cm. Immediate return of ylw/brown/green emesis. 0220- sat 96% assisted, HR 87, RR 19 assisted, BP 118/81 0230- sat 93% assisted, HR 82, RR 20 assisted, BP 120/82, temp 97.1 core
[2024-06-27] MEDS: SODIUM CHLORIDE 0.9% 10ML SYR (RAD ONLY) 10 ML IV (03:28)
[2024-06-27] MEDS: IOPAMIDOL-370 (76%);100ML BOTTLE 70 ML IV (03:28)
[2024-06-27] MEDS: 0.9 % SODIUM CHLORIDE 50 ML VIAL 40 ML IV (03:28)
[2024-06-27 03:38] LABS: Microscopic, Urine URINE MICROSCOPIC (MICROSCOPIC)
[2024-06-27 03:39] LABS: Bilirubin,Urine Negative (Negative); Blood, Urine 1+ (Negative); Color,Urine YELLOW (Yellow); Glucose,Urine (UA) Negative (Negative); Ketones,Urine Negative (Negative); Leukocyte Esterase,Urine Negative (Negative); Nitrate,Urine Negative (Negative); PH,Urine 5.5 (5.0-8.5); Protein,Urine 2+ (Negative); Specific Gravity, Urine >= 1.030 (1.005-1.030)
[2024-06-27 03:41] LABS: Appearance,Urine Slightly Cloudy (Clear)
--- NOTE | 2024-06-27 03:48 | PC.NURSE ---
Dr. Arias s/w Susanna [facility] for admission.
--- NOTE | 2024-06-27 03:48 | PC.NURSE ---
House notified for admission. No beds available at this time, and pt will be boarding in ER. Family updated with this information.
[2024-06-27 03:57] LABS: Amorphous Sediment,Urine Trace /lpf; Bacteria,Urine 1+ /lpf
[2024-06-27 03:58] LABS: Hyaline Casts,Urine OCC #/lpf (0)
[2024-06-27 04:16] LABS: Adenovirus,PCR Not Detected (NotDetected); Bordetella Pertussis Not Detected (NotDetected); Chlamydophila Pneumoniae, PCR Not Detected (NotDetected); Coronavirus 19, PCR Not Detected (NotDetected); Coronavirus 229E Not Detected (NotDetected); Coronavirus NL63 Not Detected (NotDetected); Coronavirus OC43 Not Detected (NotDetected); Coronovirus HKU1,PCR Not Detected (NotDetected); Human Metapneumovirus Not Detected (NotDetected); Influenza A, PCR Not Detected (NotDetected); Influenza AH1, 2009 Not Detected (NotDetected); Influenza AH1, PCR Not Detected (NotDetected); Influenza AH3,PCR Not Detected (NotDetected); Influenza B, PCR Not Detected (NotDetected); Mycoplasma Pneumoniae, PCR Not Detected (NotDetected); Parainfluenza 1, PCR Not Detected (NotDetected); Parainfluenza 2, PCR Not Detected (NotDetected); Parainfluenza 3, PCR Not Detected (NotDetected); Parainfluenza 4, PCR Not Detected (NotDetected); Respiratory Syncytial Virus Not Detected (NotDetected); Rhinovirus/Enterovirus Not Detected (NotDetected)
[2024-06-27] MEDS: CEFEPIME HCL 1 GM in 0.9 % SODIUM CHLORIDE 50 ML IV (04:16)
[2024-06-27] MEDS: FUROSEMIDE 40MG/4ML VIAL 80 MG IV (04:17)
[2024-06-27] MEDS: IPRATROPIUM/ALBUTEROL 3 ML NEB 6 ML IH (04:20)
--- NOTE | 2024-06-27 04:28 | PC.NURSE ---
Susanna RAMÍREZ at bedside s/w family and assessing pt.
--- NOTE | 2024-06-27 04:35 | P.HP_ITS ---
History of Present Illness *Admission Date: 06/27/24 *Reason for visit:: Respiratory failure *History of present illness: This is a 73-year-old female with past medical history of HTN, HLD, T2DM, COPD, hypothyroidism who presents emergency department today in respiratory distress. Family is at bedside and provides collateral and states that she was in her normal state of health today, [facility] Started having some mild shortness of breath this evening but went to bed normally. She then woke her family up stating that she had to go to the emergency department. Family stated it was very hard to get her out the door and into the car. Once in the car she had to passing out spells . They deny any recent complaints of her being sick. They denied any complaints of chest pain. They do state that she lost her approximately 1 month ago and has been very stressed since then. Upon arrival to the emergency department she was noted to be cyanotic, obtunded prompting endotracheal intubation. Workup notable for white blood cell count of 16, BNP of 8000, COVID flu n egative.. Chest x-ray notable for patchy bilateral airspace opacities somewhat more prominent on the right versus left. CT of the chest notable for moderate cardiomegaly with reflux of contrast into the IVC consistent with elevated right heart pressures. She was given Lasix in the emergency department as well as Levaquin for possible pneumonia and admitted to the hospital service [id number] Disclaimer: The information contained in this section may have been updated after the patient was seen, as this information can be updated by other users. Medical History (Updated 06/27/24 @ 15:16 by Romina Muhammad MD) Pleural effusion, bilateral On mechanically assisted ventilation Hypothyroid Hyperlipidemia Hypertension SOB (shortness of breath) on exertion Diabetes mellitus, type 2 Hypertension Surgical History History of tonsillectomy History of cholecystectomy Family History Other Family history of acute congestive heart failure Family history of hypertension Social History Smoking Status: Never smoker second hand exposure: No alcohol intake: never substance use type: denies use current occupational status: retired Travel in the last 8 weeks: None household members: spouse housing: house current occupational exposures/hazards: No caffeine: No Other Medical History Have you received the Flu Vaccine for this season: No Have you received the Pneumonia Vaccine: No Review of Systems Review of Systems Review of systems:: unable to obtain Review of systems (narrative): Obtunded, intubated Meds Home Medications and Allergies Home Medications ?Medication ?Instructions ?Recorded ?Confirmed ?Type ropinirole 1 mg tablet 1 mg PO BID 02/24/18 06/27/24 History aspirin 81 mg chewable tablet 81 mg PO DAILY 07/19/18 06/27/24 History atorvastatin 10 mg tablet 10 mg PO HS 02/19/23 06/27/24 History levothyroxine 50 mcg tablet 50 mcg PO DAILY 02/19/23 06/27/24 History gabapentin 800 mg tablet 800 mg PO TIDP PRN neuropathic pain 07/10/23 06/27/24 History insulin glargine 100 40 unit SQ DAILY 07/10/23 06/27/24 History unit-lixisenatide 33 mcg/mL subcutaneous pen (Soliqua 100/33) fluticasone fur. 100 mcg-umeclid See Rx Instructions .Route 01/18/24 04/21/24 History 62.5 mcg-vilant 25 mcg .COMPLEX PRN NO inhalat.powder (Trelegy Ellipta) paroxetine HCl 30 mg tablet 30 mg PO DAILY 01/18/24 06/27/24 History albuterol sulfate 90 mcg/actuation 2 puff inhalation Q6HP PRN 01/23/24 04/21/24 Rx aerosol inhaler (Ventolin HFA) Shortness Of Breath 30 days #1 ea carvedilol 6.25 mg tablet (Coreg) 6.25 mg PO BID #180 tabs 04/11/24 06/27/24 Rx lisinopril 10 mg tablet 10 mg PO DAILY 06/27/24 06/27/24 History meloxicam 15 mg tablet 15 mg PO DAILY 06/27/24 06/27/24 History trazodone 100 mg tablet 100 mg PO HS 06/27/24 06/27/24 History New Prescriptions to Start Prescriptions: Allergies Allergy/AdvReac Type Severity Reaction Status Date / Time Penicillins [PENICILLINS] Allergy Unknown I-HIVES Verified 04/21/24 10:18 promethazine [PROMETHAZINE] Allergy Unknown MAKES Verified 04/21/24 10:18 CRAZY EXACERBATES RLS Exam Data for Last 24 hours Vital signs and Labs for Last 24 Hours: Pulse Resp FiO2 88 20 100 06/27/24 04:21 06/27/24 03:07 06/27/24 03:07 Laboratory Results - last 24 hr 06/27/24 01:50: WBC 16.6 H, RBC 5.47 H, Hgb 17.8 H, Hct 54.6 H, MCV 99.9 H, MCH 32.6 H, MCHC 32.6, RDW 14.3, Plt Count 537 H, MPV 8.8, Neut % (Auto) 58.7, Lymph % (Auto) 31.8, [place] % (Auto) 4.5, Eos % (Auto) 2.5, Baso % (Auto) 2.5 H, Neut # (Auto) 9.8 H, Lymph # (Auto) 5.3 H, [place] # (Auto) 0.7, Eos # (Auto) 0.4, Baso # (Auto) 0.4 H, Total Counted 100, Neutrophils % (Manual) 51, Lymphocytes % (Manual) 34, Atypical Lymphs % 2.0, Monocytes % (Manual) 6, Eosinophils % (Manual) 3, Basophils % (Manual) 4.0 H, Platelet Estimate Slight increase, Anisocytosis 1+, PT 11.9, INR 1.07, Sodium 141, Potassium 4.7, Chloride 102, Carbon Dioxide 22, Anion Gap 21.7 H, BUN 10, Creatinine 0.90, Estimated GFR 61, Est GFR ( Amer) 74, Glucose 176 H, Calcium 8.8, Magnesium 1.9, Total Bilirubin 1.4 H, AST 60 H, ALT 42, Alkaline Phosphatase 75, Troponin I < 0.01, NT-Pro-B Natriuret Pep 1090 H, Total Protein 7.1, Albumin 4.1, Globulin 3.0, Albumin/Globulin Ratio 1.4, SARS-CoV-2 (PCR) Not detected, Influenza A Untype (PCR) Not detected, Influenza Type B (PCR) Not detected 06/27/24 02:51: Specimen Source Right radial, O2 % 100, ABG pH 7.37, ABG pCO2 42.3, ABG pO2 101.2 H, ABG HCO3 23.7, ABG Total CO2 25.0, ABG O2 Saturation 98, ABG Base Excess -1.7, Rafael Test Y, Vent Rate 20, Tidal Volume 380, PEEP 5 06/27/24 03:30: Urine Color Yellow, Urine Appearance Slightly cloudy, Urine pH 5.5, Ur Specific [place] >= 1.030, Urine Protein 2+ A, Urine Glucose (UA) Negative, Urine Ketones Negative, Urine Blood 1+ A, Urine Nitrate Negative, Urine Bilirubin Negative, Urine Urobilinogen 1.0, Ur Leukocyte Esterase Negative, Urine RBC 10-20, Urine WBC 5-10, Ur Squamous Epith Cells 5-10, Amorphous Sediment Trace, Urine Bacteria 1+, Hyaline Casts Occ I & O for Last 24 hours: Intake & Output 06/24/24 06/25/24 06/26/24 06/27/24 23:59 23:59 23:59 23:59 Weight 90.718 kg Constitutional Constitutional: no acute distress and obtunded Comments: Intubated and sedated *Routine HEENT Exam Head: Present normocephalic and atraumatic Eye: Present EOMI, PERRL and normal accommodation ENT: Present mucous membranes moist *Routine Neck Exam Neck: Present supple and full ROM; Absent JVD *Routine Respiratory Exam Respiratory: Present patient mechanically ventilated, decreased breath sounds, diminished air movement, normal respiratory effort and symmetric chest movement *Routine Cardiovascular Exam Cardiovascular: Present RRR, Normal S1 and Normal S2 *Routine Abdominal Exam Abdominal: Present soft and normoactive bowel sounds Comments: NG tube in place *Routine Rectal Exam Rectal:: deferred *Routine Genitalia Exam Genitalia:: deferred *Routine Extremities Exam Extremities: Present full ROM, pulses intact and normal capillary refill *Routine Skin Exam Skin: Present intact and dry *Routine Neurological Exam Neurological: Present moving all extremities Comments: Ms. extremities spontaneously. Scrunches eyelids to loud sounds but not following commands at this time. Assessment and Plan *Assessment and plan (1) Pulmonary edema: Status: Acute Qualifiers: Chronicity: acute Qualified Code(s): J81.0 - Acute pulmonary edema Category: Medical Code(s): J81.1 - Chronic pulmonary edema (2) Acute respiratory failure with hypoxia: Status: Acute Category: Medical Code(s): J96.01 - Acute respiratory failure with hypoxia (3) Severe sepsis: Status: Acute Category: Medical Code(s): A41.9 - Sepsis, unspecified organism; R65.20 - Severe sepsis without septic shock (4) Hypothyroid: Status: Chronic Qualifiers: Hypothyroidism type: acquired Qualified Code(s): E03.9 - Hypothyroidism, unspecified Category: Medical Code(s): E03.9 - Hypothyroidism, unspecified (5) COPD with exacerbation: Status: Acute Category: Medical Code(s): J44.1 - Chronic obstructive pulmonary disease with (acute) exacerbation (6) Diabetes mellitus, type 2: Status: Chronic Qualifiers: Diabetes mellitus complication status: without complication Diabetes mellitus retirement insulin use: without retirement use Qualified Code(s): E11.9 - Type 2 diabetes mellitus without complications Category: Medical Code(s): E11.9 - Type 2 diabetes mellitus without complications (7) Hypertension: Status: Acute Qualifiers: Hypertension type: primary hypertension Qualified Code(s): I10 - Essential (primary) hypertension Category: Medical Code(s): I10 - Essential (primary) hypertension (8) Hyperlipidemia: Status: Chronic Qualifiers: Hyperlipidemia type: mixed hyperlipidemia Qualified Code(s): E78.2 - Mixed hyperlipidemia Category: Medical Code(s): E78.5 - Hyperlipidemia, unspecified Plan #Acute respiratory failure with hypoxia #Severe sepsis #Pneumonia Likely multifactorial given pneumonia and right-sided heart failure Likely element of Takotsubo's cardiomyopathy given recent stressor of losing her Echocardiogram in a.m. Patient did have echocardiogram last year at [facility] with normal LV function, EF 55 to 60%. Mild mitral and tricuspid regurg. RVSP normal at that time. Continue diuresis with IV Lasix twice daily Continue broad-spectrum antibiotic coverage with vancomycin and cefepime Continue bronchodilators Blood cultures pending Sputum culture pending Procalcitonin pending Pulmonary consulted for pulmonary critical care, appreciate recommendations #Hypothyroidism Checking TSH and free T4 now Continue levothyroxine once able #T2DM Q6 sliding scale insulin A1c pending #Hypertension #Hyperlipidemia Continue home medications as appropriate Rounded on patient after nurse practitioner. Personally examined and interviewed patient. Agree with exam findings and care plan as documented. Chart reviewed. Patient found to have detectable troponin at 0.32. Respiratory distress on vent on my evaluation. Morning blood gas acceptable with pH 7.46, pCO2 34, pO2 133. Weaning settings with the assistance of pulmonology. Will transition antibiotics from ceftriaxone to vancomycin to Levaquin. Cardiology consulted to assist with care. Discussed case with cardiology, will obtain echo. Concern for cardiomyopathy. Continue with diuresis. CBC, CMP, magnesium ordered for the morning.
--- NOTE | 2024-06-27 04:49 | PC.NURSE ---
pt's core temp is 100.0, called Susanna CHAU and she [facility]
[2024-06-27] MEDS: ACETAMINOPHEN 1,000MG/100ML VIAL 1000 MG IV (04:53)
[2024-06-27 06:10] LABS: Chloride 101 mmol/L (98-107); Potassium 3.8 mmoL/L (3.5-5.1); Sodium 137 mmol/L (136-145)
[2024-06-27 06:12] LABS: Blood Urea Nitrogen 12 mg/dl (7-17)
[2024-06-27 06:13] LABS: Anion Gap 8.8 mEq/L (5-15); Calcium 8.3 mg/dl (8.4-10.2); Carbon Dioxide 31 mmol/L (22.0-30.0); Creatinine Clearance Estimated 70 mL/min (50-200); Estimated Glomerular Filt Rate 82 ml/min (>60); GFR (African American) 99 ML/MIN (>60); Glucose 147 mg/dl (74-100); Magnesium 1.6 mg/dl (1.6-2.3); Phosphorous 3.7 mg/dl (2.5-4.5)
[2024-06-27 06:18] LABS: C-Reactive Protein 2.8 mg/L (0-4)
[2024-06-27 06:28] LABS: Troponin I 0.32 ng/ml (0.00-0.034)
[2024-06-27 06:29] LABS: Procalcitonin 0.108 ng/mL (0.0-2.0)
--- NOTE | 2024-06-27 06:31 | PC.NURSE ---
lab reported a critical troponin of 0.32
[2024-06-27 06:36] LABS: Basophils # 0.2 K/mm3 (0-0.2); Basophils % 1.5 % (0.1-2.0); Eosinophils # 0.1 K/mm3 (0.0-0.4); Eosinophils % 1.1 % (0.1-12.0); Hematocrit 49.5 % (37.0-47.0); Hemoglobin 16.3 g/dL (12.2-16.2); Lymphocytes # 1.7 K/mm3 (0.7-4.5); Lymphocytes % 13.3 % (10-50); Mean Corpuscular Hemoglobin 32.2 pg (27.0-31.2); Mean Corpuscular Volume 97.5 fl (81-99); Mean Platelet Volume 8.4 fl (7.4-10.4); Monocytes # 0.9 K/mm3 (0.1-1.0); Monocytes % 6.9 % (1.7-9.3); Neutrophils # 9.7 K/mm3 (1.8-7.8); Neutrophils % 77.2 % (37.0-80.0); Platelet Count 365 K/mm3 (142-424); Red Blood Count 5.07 M/mm3 (4.20-5.40); Red Cell Distribution Width 14.4 % (11.5-17.5); White Blood Count 12.6 K/mm3 (4.8-10.8)
[2024-06-27] MEDS: VANCOMYCIN/WATER FOR INJ (PEG) 1.75 GM/350 ML PIGGYBACK IV (06:38)
--- NOTE | 2024-06-27 06:48 | ECG_ITS ---
APPROVED REPORT Exam: Resting ECG HR:90 bpm ECG Measurements Heart Rate 90 AXES MD 177 P 65 QRSd 89 QRS 100 QT 346 T 76 QTc 394 Conclusion SINUS RHYTHM WITH OCCASIONAL SUPRAVENTRICULAR PREMATURE COMPLEXES LOW QRS VOLTAGE IN EXTREMITY LEADS [QRS DEFLECTION < 0.5 mV IN LIMB LEADS] ANTEROLATERAL MYOCARDIAL INFARCTION , OF INDETERMINATE AGE [40+ ms Q WAVE IN I/aVL/V3-V6] ABNORMAL ECG UNCONFIRMED REPORT Electronically signed by : Farrukh Fragoso MD 06/27/2024 08:39:23
[2024-06-27] MEDS: IPRATROPIUM/ALBUTEROL 3 ML NEB IH ×3 (06:52→18:44)
[2024-06-27] MEDS: propofoL 100 ML 19.05 MG IV (07:05)
--- NOTE | 2024-06-27 07:08 | CA_ITS ---
APPROVED REPORT EXAM: Comprehensive 2D, Doppler, and color-flow Echocardiogram Credit Advisor: Jeannette Hudson RT(R) Ht: 5 ft 4 in Wt: 200lbs BSA: 1.96 BP: 126/82 mmHg Indications: Resp failure, COPD, HTN, DM, SOB, hyperlipidemia, home O2, currently intubated, pulmonary edema, sepsis. Echo Enhancing Agent Indication: Endocardial border delineation Agent(s) / Amount(s) Used: Definity 2 cc 2D Dimensions IVSd 0.76 cm F: 0.6-1.0 LVEF (Visual) 33.60 % PWd 0.76 cm F: 0.6 - 1.0 LA Volume 56.00 mL LVDd 4.52 cm F: 3.9 - 5.3 LA Volume Index 28.57 mL/m2 (M/F) 16-34 LVDs 3.80 cm F: 2.2 - 3.5 EF AP4 40.40 % Left Atrium 4.80 cm F: 2.7 - 3.8 GL Strain -7.8 % LVOT 1.76 cm (M/F) 1.5-2.5 M-Mode Dimensions LVDd 4.52 cm (3.5-5.7) Ao Diam 2.10 cm (2.0-3.7) LVDs 3.80 cm (3.5-5.7) IVSd 0.76 cm (0.6-1.1) PWd 0.76 cm (0.6-1.1) FS 15.90% LV Diastology E Decel Time 150 (160-240 msec) E/A Ratio 2.0 MED E' 4.5 (>= 7 cm/sec) E'/MED E' Ratio 18.71 (<= 14) LAT E' 6.5 (>= 10 cm/sec) E/LAT E' Ratio 12.95 (<= 14) Mitral Valve MV E Max Sung. 84.0 (40-130 cm/s) MV A Velocity 41.0 (40-130 cm/s) E/A Ratio 2.03 MV Decel. Time 150 (160-240 ms) Tricuspid Valve TR P. Velocity 291.00 cm/s RAP Estimate 10.00 mmHg RVSP 43.90 mmHg Left Ventricle The left ventricle is normal size. Left ventricular systolic function is severely decreased. There is increased LV wall thickness. There is severe global hypokinesis present. The distal and apical LV adams are akinetic. Grade 3 diastolic dysfunction is present. No left ventricle thrombus noted on this study. LVEF is 25%. Right Ventricle Right ventricle is mildly dilated. Right ventricle is moderately hypokinetic. Atria Left atrium is severely dilated. Right atrium is mildly dilated. There is no Doppler evidence of interatrial shunt. Aortic Valve The aortic valve is mildly thickened. Mild aortic regurgitation. There is no aortic valvular stenosis. Mitral Valve The mitral valve leaflets are mildly thickened. Moderate mitral regurgitation. No evidence of mitral valve stenosis. Tricuspid Valve The tricuspid valve leaflets are thin and pliable. Mild tricuspid regurgitation. RVSP is 35 mmHg + RA pressure. Pulmonic Valve The pulmonary valve is normal in structure. Trace pulmonic regurgitation. Great Vessels The aortic root is normal in size. The ascending aorta is not well-visualized. The IVC is not well-visualized. Pericardium There is no pericardial effusion. Other Information Study Quality: Fair Conclusion Severe reduction in LV systolic function (LVEF 25%). Distal and apical LV adams are akinetic. Mild RV dilation with moderate reduction in RV function. Biatrial dilation. Moderate MR. Mild AI, mild TR. RVSP is 35 mmHg + RA pressure. Compared to prior study from 02/2023, there are significant changes noted. Electronically signed by : Connie Chong MD 06/27/2024 12:05:04
[2024-06-27 07:18] LABS: Erythrocyte Sedimentation Rate 5 mm/hr (0-30)
[2024-06-27 07:21] LABS: ABG Base Excess 0.5 mmol/L (-2.4-2.3); ABG HCO3 24.3 mmhg (22.0-26.0); ABG Oxygen Saturation 99 % (90-100); ABG PCO2 34.6 mmhg (35.0-45.0); ABG PH 7.46 mmol/L (7.35-7.45); ABG PO2 133.5 mmhg (80-100); ABG TCO2 25.3 mmhg (23-27)
[2024-06-27 07:22] LABS: Oxygen 100% %; Tidal Volume 380; Vent Rate 20
[2024-06-27 07:23] LABS: Allen's Test Patient Unable; PEEP 5; Source Right Radial
--- NOTE | 2024-06-27 08:07 | PC.NURSE ---
REPEAT TROP SENT, LAB NOTIFIED
--- NOTE | 2024-06-27 08:17 | P.CONPHA_ITS ---
Pharmacy Consult Date: 06/27/24 Time: 08:17 Referring provider: DR. CHACKO Reason for Consult:: VANCOMYCIN DOSING Allergies Allergy/AdvReac Type Severity Reaction Status Date / Time Penicillins [PENICILLINS] Allergy Unknown I-HIVES Verified 04/21/24 10:18 promethazine [PROMETHAZINE] Allergy Unknown MAKES Verified 04/21/24 10:18 CRAZY EXACERBATES RLS Home Medications ?Medication ?Instructions ?Recorded ?Confirmed ?Type ropinirole 1 mg tablet 1 mg PO BID RLS 02/24/18 04/21/24 History aspirin 81 mg chewable tablet 81 mg PO DAILY heart health 07/19/18 04/21/24 Hi story atorvastatin 10 mg tablet 10 mg PO DAILY 02/19/23 04/21/24 History levothyroxine 50 mcg tablet 50 mcg PO DAILY 02/19/23 04/21/24 History lisinopril 40 mg tablet 40 mg PO DAILY #90 tabs 06/09/23 04/21/24 Rx gabapentin 800 mg tablet 800 mg PO TID 07/10/23 04/21/24 History insulin glargine 100 40 unit SQ DAILY 07/10/23 04/21/24 History unit-lixisenatide 33 mcg/mL subcutaneous pen (Soliqua 100/33) blood sugar diagnostic (True #10 ea 01/18/24 04/21/24 History Metrix Glucose Test Strip) fluticasone fur. 100 mcg-umeclid See Rx Instructions .Route 01/18/24 04/21/24 H istory 62.5 mcg-vilant 25 mcg .COMPLEX PRN NO inhalat.powder (Trelegy Ellipta) lancets 33 gauge (TRUEplus Lancets) #100 ea 01/18/24 04/21/24 History paroxetine HCl 30 mg tablet 30 mg PO DAILY 01/18/24 04/21/24 History pen needle, diabetic 31 gauge x #100 ea 01/18/24 04/21/24 History 1/4 (Droplet Pen Needle) pen needle, diabetic 32 gauge x #100 ea 01/18/24 04/21/24 History 1/4 (BD Ultra-Fine Micro Pen Needle) albuterol sulfate 90 mcg/actuation 2 puff inhalation Q6HP PRN 01/23/24 04/21/24 Rx aerosol inhaler (Ventolin HFA) Shortness Of Breath 30 days #1 ea carvedilol 6.25 mg tablet (Coreg) 6.25 mg PO BID #180 tabs 04/11/24 04/21/24 Rx New Prescriptions to Start Prescriptions: Height: 1.63 m Weight: 90.718 kg Laboratory Results:: Laboratory Results - last 24 hr 06/27/24 01:30: Chlamy pneumoniae PCR Not detected, Adenovirus (PCR) Not detected, B. pertussis DNA (PCR) Not detected, Coronavirus OC43 (PCR) Not detected, Coronavirus HKU1 (PCR) Not detected, Coronavirus 229E (PCR) Not detected, SARS-CoV-2 (PCR) Not detected, Coronavirus NL63 (PCR) Not detected, Human Metapneumovir PCR Not detected, Influenza A (H1) PCR Not detected, Influ A (H1N1/09) PCR Not detected, Influenza A (H3) PCR Not detected, Influenza Type A (PCR) Not detected, Influenza Type B (PCR) Not detected, M. pneumoniae (PCR) Not detected, Parainfluenza 1 (PCR) Not detected, Parainfluenza 2 (PCR) Not detected, Parainfluenza 3 (PCR) Not detected, Parainfluenza 4 (PCR) Not detected, RSV (PCR) Not detected, Entero/Rhino (PCR) Not detected 06/27/24 01:50: WBC 16.6 H, RBC 5.47 H, Hgb 17.8 H, Hct 54.6 H, MCV 99.9 H, MCH 32.6 H, MCHC 32.6, RDW 14.3, Plt Count 537 H, MPV 8.8, Neut % (Auto) 58.7, Lymph % (Auto) 31.8, [place] % (Auto) 4.5, Eos % (Auto) 2.5, Baso % (Auto) 2.5 H, Neut # (Auto) 9.8 H, Lymph # (Auto) 5.3 H, [place] # (Auto) 0.7, Eos # (Auto) 0.4, Baso # (Auto) 0.4 H, Total Counted 100, Neutrophils % (Manual) 51, Lymphocytes % (Manual) 34, Atypical Lymphs % 2.0, Monocytes % (Manual) 6, Eosinophils % (Manual) 3, Basophils % (Manual) 4.0 H, Platelet Estimate Slight increase, Anisocytosis 1+, PT 11.9, INR 1.07, Sodium 141, Potassium 4.7, Chloride 102, Carbon Dioxide 22, Anion Gap 21.7 H, BUN 10, Creatinine 0.90, Estimated GFR 61, Est GFR ( Amer) 74, Glucose 176 H, Calcium 8.8, Magnesium 1.9, Total Bilirubin 1.4 H, AST 60 H, ALT 42, Alkaline Phosphatase 75, Troponin I < 0.01, NT-Pro-B Natriuret Pep 1090 H, Total Protein 7.1, Albumin 4.1, Globulin 3.0, Albumin/Globulin Ratio 1.4, SARS-CoV-2 (PCR) Not detected, Influenza A Untype (PCR) Not detected, Influenza Type B (PCR) Not detected 06/27/24 02:51: Specimen Source Right radial, O2 % 100, ABG pH 7.37, ABG pCO2 42.3, ABG pO2 101.2 H, ABG HCO3 23.7, ABG Total CO2 25.0, ABG O2 Saturation 98, ABG Base Excess -1.7, Rafael Test Y, Vent Rate 20, Tidal Volume 380, PEEP 5 06/27/24 03:30: Urine Color Yellow, Urine Appearance Slightly cloudy, Urine pH 5.5, Ur Specific [place] >= 1.030, Urine Protein 2+ A, Urine Glucose (UA) Negative, Urine Ketones Negative, Urine Blood 1+ A, Urine Nitrate Negative, Urine Bilirubin Negative, Urine Urobilinogen 1.0, Ur Leukocyte Esterase Negative, Urine RBC 10-20, Urine WBC 5-10, Ur Squamous Epith Cells 5-10, Amorphous Sediment Trace, Urine Bacteria 1+, Hyaline Casts Occ 06/27/24 05:44: Sodium 137, Potassium 3.8, Chloride 101, Carbon Dioxide 31 H, Anion Gap 8.8, BUN 12, Creatinine 0.70 D, Estimated Creat Clear 70, Estimated G FR 82, Est GFR ( Amer) 99 D, Glucose 147 H, Calcium 8.3 L, Phosphorus 3.7, Magnesium 1.6 D, Troponin I 0.32 H, C-Reactive Protein 2.8, Procalcitonin 0.108, TSH 4.00, Free T4 1.40 06/27/24 06:20: WBC 12.6 H, RBC 5.07, Hgb 16.3 H, Hct 49.5 H, MCV 97.5, MCH 32.2 H, MCHC 33.0, RDW 14.4, Plt Count 365 D, MPV 8.4, Neut % (Auto) 77.2, Lymph % (Auto) 13.3, [place] % (Auto) 6.9, Eos % (Auto) 1.1, Baso % (Auto) 1.5, Neut # (Auto) 9.7 H, Lymph # (Auto) 1.7, [place] # (Auto) 0.9, Eos # (Auto) 0.1, Baso # (Auto) 0.2, ESR 5 06/27/24 07:15: Specimen Source Right radial, O2 % 100%, ABG pH 7.46 H, ABG pCO2 34.6 L, ABG pO2 133.5 H, ABG HCO3 24.3, ABG Total CO2 25.3, ABG O2 Saturation 99, ABG Base Excess 0.5, Rafael Test Patient unable, Vent Rate 20, Tidal Volume 380, PEEP 5 Medical History: Medical History (Updated 06/27/24 @ 04:41 by KANDI Monaco) Hypothyroid Hyperlipidemia Hypertension SOB (shortness of breath) on exertion Diabetes mellitus, type 2 Hypertension Assessment and Plan Assessment and plan all Dx Assessment and Plan for all problems:: Pharmacokinetic dosing service Objective: Patient: Floor: Age: 73 yo Serum creatinine: 1 mg/dL Height: 64.0 Inches Weight (kg): 90.7 Assessment: IBW (kg): 54.70 Dosing wt(kg): 90.7 Estimated Creatinine clearance (ml/min): 42.0 CRCL method: Cockcroft and Gault using ibw(default). Drug selected: Vancomycin Loading dose (mg): 0 Vd (liters): 72.6 (factor used: 0.8 L/kg) [place] (hr-1): 0.039 Half life (hrs): 17.77 Recommended dose: 1500 mg Interval: 24 hrs Infusion time (hrs): 2.0 Predicted peak (mcg/mL): 32.7 Predicted trough (mcg/mL): 13.87 Total body weight is being used for vancomycin dosing. Recommendations: Give Vancomycin 1500 mg q 24 hrs with an expected Cpeak of 32.7 mcg/ml and an expected Ctrough of 13.87 mcg/ml ----Vanco only - ignore for aminoglycosides----- CLvanco= 2.83 L/hr AUC 0-24 /ROMY Data: ROMY 0.5 mcg/mL: AUC/ROMY: 1060.1 ROMY 1.0 mcg/mL: AUC/ROMY: 530.0 --------- ROMY 1.5 mcg/mL: AUC/ROMY: 353.4 ROMY 2.0 mcg/mL: AUC/ROMY: 265.0
--- NOTE | 2024-06-27 09:13 | PC.NURSE ---
report called to Kimberli
--- NOTE | 2024-06-27 09:41 | PC.NURSE ---
arrived by stretcher from ED
--- NOTE | 2024-06-27 09:59 | EXP.PULM.CON ---
History of Present Illness History of present illness: Ms. Fuller is a 73-year-old female with reported of hypertension dyslipidemia diabetes mellitus COPD presented to the ER with worsening respiratory distress, and upon presentation to the ER patient was found to be cyanotic needing intubation and mechanical ventilatory support. [facility] Disclaimer: The information contained in this section may have been updated after the patient was seen, as this information can be updated by other users. Medical History (Updated 06/27/24 @ 15:16 by Romina Muhammad MD) Pleural effusion, bilateral On mechanically assisted ventilation Hypothyroid Hyperlipidemia Hypertension SOB (shortness of breath) on exertion Diabetes mellitus, type 2 Hypertension Surgical History History of tonsillectomy History of cholecystectomy Family History Other Family history of acute congestive heart failure Family history of hypertension Social History Smoking Status: Never smoker second hand exposure: No alcohol intake: never substance use type: denies use current occupational status: retired Travel in the last 8 weeks: None household members: spouse housing: house current occupational exposures/hazards: No caffeine: No Review of Systems Review of Systems Review of systems:: unable to obtain Review of systems (narrative): Intubated and sedated Pulmonology Exam Inpatient Vital signs and Labs for Last 24 Hours: Temp Pulse Resp BP Pulse Ox O2 Del Method O2 Flow Rate 99.7 F H 85 20 115/67 97 Mechanical Ventilation 100 06/27/24 09:00 06/27/24 09:00 06/27/24 09:00 06/27/24 09:00 06/27/24 09:00 06/27/24 08:15 06/27/24 05:20 FiO2 100 06/27/24 08:56 Laboratory Results - last 24 hr 06/27/24 01:30: Chlamy pneumoniae PCR Not detected, Adenovirus (PCR) Not detected, B. pertussis DNA (PCR) Not detected, Coronavirus OC43 (PCR) Not detected, Coronavirus HKU1 (PCR) Not detected, Coronavirus 229E (PCR) Not detected, SARS-CoV-2 (PCR) Not detected, Coronavirus NL63 (PCR) Not detected, Human Metapneumovir PCR Not detected, Influenza A (H1) PCR Not detected, Influ A (H1N1/09) PCR Not detected, Influenza A (H3) PCR Not detected, Influenza Type A (PCR) Not detected, Influenza Type B (PCR) Not detected, M. pneumoniae (PCR) Not detected, Parainfluenza 1 (PCR) Not detected, Parainfluenza 2 (PCR) Not detected, Parainfluenza 3 (PCR) Not detected, Parainfluenza 4 (PCR) Not detected, RSV (PCR) Not detected, Entero/Rhino (PCR) Not detected 06/27/24 01:50: WBC 16.6 H, RBC 5.47 H, Hgb 17.8 H, Hct 54.6 H, MCV 99.9 H, MCH 32.6 H, MCHC 32.6, RDW 14.3, Plt Count 537 H, MPV 8.8, Neut % (Auto) 58.7, Lymph % (Auto) 31.8, [place] % (Auto) 4.5, Eos % (Auto) 2.5, Baso % (Auto) 2.5 H, Neut # (Auto) 9.8 H, Lymph # (Auto) 5.3 H, [place] # (Auto) 0.7, Eos # (Auto) 0.4, Baso # (Auto) 0.4 H, Total Counted 100, Neutrophils % (Manual) 51, Lymphocytes % (Manual) 34, Atypical Lymphs % 2.0, Monocytes % (Manual) 6, Eosinophils % (Manual) 3, Basophils % (Manual) 4.0 H, Platelet Estimate Slight increase, Anisocytosis 1+, PT 11.9, INR 1.07, Sodium 141, Potassium 4.7, Chloride 102, Carbon Dioxide 22, Anion Gap 21.7 H, BUN 10, Creatinine 0.90, Estimated GFR 61, Est GFR ( Amer) 74, Glucose 176 H, Calcium 8.8, Magnesium 1.9, Total Bilirubin 1.4 H, AST 60 H, ALT 42, Alkaline Phosphatase 75, Troponin I < 0.01, NT-Pro-B Natriuret Pep 1090 H, Total Protein 7.1, Albumin 4.1, Globulin 3.0, Albumin/Globulin Ratio 1.4, SARS-CoV-2 (PCR) Not detected, Influenza A Untype (PCR) Not detected, Influenza Type B (PCR) Not detected 06/27/24 02:51: Specimen Source Right radial, O2 % 100, ABG pH 7.37, ABG pCO2 42.3, ABG pO2 101.2 H, ABG HCO3 23.7, ABG Total CO2 25.0, ABG O2 Saturation 98, ABG Base Excess -1.7, Rafael Test Y, Vent Rate 20, Tidal Volume 380, PEEP 5 06/27/24 03:30: Urine Color Yellow, Urine Appearance Slightly cloudy, Urine pH 5.5, Ur Specific [place] >= 1.030, Urine Protein 2+ A, Urine Glucose (UA) Negative, Urine Ketones Negative, Urine Blood 1+ A, Urine Nitrate Negative, Urine Bilirubin Negative, Urine Urobilinogen 1.0, Ur Leukocyte Esterase Negative, Urine RBC 10-20, Urine WBC 5-10, Ur Squamous Epith Cells 5-10, Amorphous Sediment Trace, Urine Bacteria 1+, Hyaline Casts Occ 06/27/24 05:44: Sodium 137, Potassium 3.8, Chloride 101, Carbon Dioxide 31 H, Anion Gap 8.8, BUN 12, Creatinine 0.70 D, Estimated Creat Clear 70, Estimated GFR 82, Est GFR ( Amer) 99 D, Glucose 147 H, Calcium 8.3 L, Phosphorus 3.7, Magnesium 1.6 D, Troponin I 0.32 H, C-Reactive Protein 2.8, Procalcitonin 0.108, TSH 4.00, Free T4 1.40 06/27/24 06:20: WBC 12.6 H, RBC 5.07, Hgb 16.3 H, Hct 49.5 H, MCV 97.5, MCH 32.2 H, MCHC 33.0, RDW 14.4, Plt Count 365 D, MPV 8.4, Neut % (Auto) 77.2, Lymph % (Auto) 13.3, [place] % (Auto) 6.9, Eos % (Auto) 1.1, Baso % (Auto) 1.5, Neut # (Auto) 9.7 H, Lymph # (Auto) 1.7, [place] # (Auto) 0.9, Eos # (Auto) 0.1, Baso # (Auto) 0.2, ESR 5 06/27/24 07:15: Specimen Source Right radial, O2 % 100%, ABG pH 7.46 H, ABG pCO2 34.6 L, ABG pO2 133.5 H, ABG HCO3 24.3, ABG Total CO2 25.3, ABG O2 Saturation 99, ABG Base Excess 0.5, Rafael Test Patient unable, Vent Rate 20, Tidal Volume 380, PEEP 5 06/27/24 08:05: Troponin I 0.50 H I & O for Labs for Last 24 Hours: Intake & Output 06/24/24 06/25/24 06/26/24 06/27/24 23:59 23:59 23:59 23:59 Intake Total 379.943 / 379.943 Output Total 370 / 370 Balance 9.943 / 9.943 Weight 200 lb Constitutional: Present severe distress Head: Present normocephalic and atraumatic ENT: Present normal exam, normal oropharynx and mucous membranes moist Neck: Present normal inspection and full ROM Respiratory: Present respiratory distress, rhonchi, wheezes, crackles and diminished air movement Cardiac: Present S1/S2, Tachycardia and radial pulses present GI: Present soft and distention; Absent tenderness or guarding Rectal (female): Present deferred (female): Present deferred Skin: Present intact; Absent cyanosis or jaundice Neuro: Absent alert, awake or oriented x 3 Extremities: Present normal inspection; Absent clubbing or cyanosis Meds Home Medications and Allergies Home Medications ?Medication ?Instructions ?Recorded ?Confirmed ?Type ropinirole 1 mg tablet 1 mg PO BID 02/24/18 06/27/24 History aspirin 81 mg chewable tablet 81 mg PO DAILY 07/19/18 06/27/24 History atorvastatin 10 mg tablet 10 mg PO HS 02/19/23 06/27/24 History levothyroxine 50 mcg tablet 50 mcg PO DAILY 02/19/23 06/27/24 History gabapentin 800 mg tablet 800 mg PO TIDP PRN neuropathic pain 07/10/23 06/27/24 History insulin glargine 100 40 unit SQ DAILY 07/10/23 06/27/24 History unit-lixisenatide 33 mcg/mL subcutaneous pen (Soliqua 100/33) fluticasone fur. 100 mcg-umeclid See Rx Instructions .Route 01/18/24 04/21/24 History 62.5 mcg-vilant 25 mcg .COMPLEX PRN NO inhalat.powder (Trelegy Ellipta) paroxetine HCl 30 mg tablet 30 mg PO DAILY 01/18/24 06/27/24 History albuterol sulfate 90 mcg/actuation 2 puff inhalation Q6HP PRN 01/23/24 04/21/24 Rx aerosol inhaler (Ventolin HFA) Shortness Of Breath 30 days #1 ea carvedilol 6.25 mg tablet (Coreg) 6.25 mg PO BID #180 tabs 04/11/24 06/27/24 Rx lisinopril 10 mg tablet 10 mg PO DAILY 06/27/24 06/27/24 History meloxicam 15 mg tablet 15 mg PO DAILY 06/27/24 06/27/24 History trazodone 100 mg tablet 100 mg PO HS 06/27/24 06/27/24 History New Prescriptions to Start Prescriptions: Allergies Allergy/AdvReac Type Severity Reaction Status Date / Time Penicillins [PENICILLINS] Allergy Unknown I-HIVES Verified 04/21/24 10:18 promethazine [PROMETHAZINE] Allergy Unknown MAKES Verified 04/21/24 10:18 CRAZY EXACERBATES RLS Results Laboratory Findings 06/27/24 06:20 06/27/24 05:44 ABG ABG pH 7.46 mmol/L (7.35-7.45) H 06/27/24 07:15 ABG pCO2 34.6 mmhg (35.0-45.0) L 06/27/24 07:15 ABG pO2 133.5 mmhg (80-100) H 06/27/24 07:15 ABG O2 Saturation 99 % (90-100) 06/27/24 07:15 PT/INR, D-dimer PT 11.9 seconds (10.1-12.5) 06/27/24 01:50 INR 1.07 (0.9-1.1) 06/27/24 01:50 Abnormal lab findings: Abnormal Labs 06/27/24 06/27/24 06/27/24 01:50 02:51 03:30 WBC 16.6 H RBC 5.47 H Hgb 17.8 H Hct 54.6 H MCV 99.9 H MCH 32.6 H Plt Count 537 H Baso % (Auto) 2.5 H Neut # (Auto) 9.8 H Lymph # (Auto) 5.3 H Baso # (Auto) 0.4 H Basophils % (Manual) 4.0 H ABG pH ABG pCO2 ABG pO2 101.2 H Carbon Dioxide Anion Gap 21.7 H Glucose 176 H Calcium Total Bilirubin 1.4 H AST 60 H Troponin I NT-Pro-B Natriuret Pep 1090 H Urine Protein 2+ A Urine Blood 1+ A 06/27/24 06/27/24 06/27/24 05:44 06:20 07:15 WBC 12.6 H RBC Hgb 16.3 H Hct 49.5 H MCV MCH 32.2 H Plt Count Baso % (Auto) Neut # (Auto) 9.7 H Lymph # (Auto) Baso # (Auto) Basophils % (Manual) ABG pH 7.46 H ABG pCO2 34.6 L ABG pO2 133.5 H Carbon Dioxide 31 H Anion Gap Glucose 147 H Calcium 8.3 L Total Bilirubin AST Troponin I 0.32 H NT-Pro-B Natriuret Pep Urine Protein Urine Blood 06/27/24 08:05 WBC RBC Hgb Hct MCV MCH Plt Count Baso % (Auto) Neut # (Auto) Lymph # (Auto) Baso # (Auto) Basophils % (Manual) ABG pH ABG pCO2 ABG pO2 Carbon Dioxide Anion Gap Glucose Calcium Total Bilirubin AST Troponin I 0.50 H NT-Pro-B Natriuret Pep Urine Protein Urine Blood Assessment and Plan *Assessment and plan (1) On mechanically assisted ventilation: Status: Acute Category: Medical Code(s): Z99.11 - Dependence on respirator [ventilator] status (2) Acute respiratory failure with hypoxia: Status: Acute Category: Medical Code(s): J96.01 - Acute respiratory failure with hypoxia (3) Pleural effusion, bilateral: Status: Acute Category: Medical Code(s): J90 - Pleural effusion, not elsewhere classified Plan Ms. Fuller is a 73-year-old female with reported of hypertension dyslipidemia diabetes mellitus COPD presented to the ER with worsening respiratory distress, and upon presentation to the ER patient was found to be cyanotic needing intubation and mechanical ventilatory support. CTA PE protocol upon admission evidence of pulmonary embolism but bilateral diffuse groundglass opacity with septal thickening and bilateral moderate pleural effusions concerning for volume overload. No dense consolidative/airspace changes noted. No significant emphysematous changes appreciated on the CT scan. Neutrophilic predominant leukocytosis improving. Complains of respiratory viral PCR panel negative. Currently on broad-spectrum antibiotics including vancomycin and cefepime. DuoNebs every 6 scheduled. Receiving diuretics. Plan: Continue analgo-sedation propofol and fentanyl. SBT today Continue mechanical ventilatory support, currently on PEEP of 8 FiO2 of 40%. Chest x-ray bilateral effusions. ET tube 5.5 cm above the angie. Antibiotics can be weaned to levofloxacin as per pulm etiology of current hypoxic respiratory failure is likely from volume overload from heart failure exacerbation. DuoNebs every 6 hours scheduled Abdomen soft nondistended. Adequate urine output. MAP greater than 65. Renally dose medications. - Continue mechanical ventilatory support - Continue AnalgoSedation with Propofol and Fentanyl with CPOT gal less than or euqal to 2 and RASS goal of to 2 (No need for deep sedation) - VAP bundle Recommend elevate head of the bed at 30 to 45 degrees Recommend oral care with chlorhexidne Recommend GI ulcer prophylaxis - Famotidine 20mg IV BID Recommend chemical DVT prophylaxis Total critical care time spent on this patient is 35 minutes managing acute hypoxic respiratory failure needing mechanical ventilation. This time spent include reviewing test results including interpreting chest x-rays, labs and arterial blood gas, optimizing the ventilator settings,formulating plan of care, discussing the plan of care with the team and the nursing staff.
--- NOTE | 2024-06-27 10:09 | PC.NURSE ---
RESP CARE NOTE: FIO2 decreased to 50%, will continue to monitor patient. SPO2 at 98% on 50% FIO2.
[2024-06-27] MEDS: DEFINITY US ECHO CONTRAST 2ML INJ 2 MG IV (10:58)
[2024-06-27] MEDS: FUROSEMIDE 40MG/4ML VIAL 40 MG IV ×2 (11:20→15:26)
[2024-06-27] MEDS: ENOXAPARIN 40MG/0.4ML SYRINGE 40 MG SUBCUT (11:21)
[2024-06-27] MEDS: ASPIRIN 300MG SUPPOSITORY 300 MG RC (11:21)
[2024-06-27 11:22] LABS: Hemoglobin A1C 6.6 % (4.0-6.0)
[2024-06-27 11:32] LABS: POC Glucose,Bedside 110 (70-110)
[2024-06-27] MEDS: propofoL 100 ML 21.77 MG IV (12:00)
--- NOTE | 2024-06-27 13:55 | P.CONCA_ITS ---
History of Present Illness History of Present Illness Consult date: 06/27/24 Requesting physician: Mario Alberto Ware Consult reason: congestive heart failure Chief complaint: SOA History of present illness: 73-year-old white female intubated/sedated in ICU. History obtained from chart and patient's family who are bedside. Pt has no known prior cardiovascular disease and is an established patient of our office we follow for high blood pressure. We did evaluate her with stress test and echocardiogram last year which were unremarkable. Patient's approximately 1 month ago and she has been grieving this heavily since that time. Family states yesterday she was fine when she went to bed after jainism but then awoke in the middle the night in respiratory distress and told her sister she needed to go to the hospital. On arrival here patient was in respiratory failure and emergently intubated. She was found to have acute CHF and was admitted and started on IV Lasix for diuresis. EKG is unchanged from 1 year ago. Serial Trop -.01, 0.32, 0.50. Echo here shows EF 25% with distal and apical LV adams akinetic, biatrial dilation, moderate MR. All of these are new findings compared with 1 year ago. Working diagnosis is stress cardiomyopathy. [facility] Disclaimer: The information contained in this section may have been updated after the patient was seen, as this information can be updated by other users. Medical History Hypothyroid Hyperlipidemia Hypertension SOB (shortness of breath) on exertion Diabetes mellitus, type 2 Hypertension Surgical History History of tonsillectomy History of cholecystectomy Family History Other Family history of acute congestive heart failure Family history of hypertension Social History Smoking Status: Never smoker second hand exposure: No alcohol intake: never substance use type: denies use current occupational status: retired Travel in the last 8 weeks: None household members: spouse housing: house current occupational exposures/hazards: No caffeine: No Review of Systems Review of Systems Review of systems:: unable to obtain Exam Data for Last 24 hours Vital signs and Labs for Last 24 Hours: Temp Pulse Resp BP Pulse Ox O2 Del Method O2 Flow Rate 99.6 F 85 20 174/95 H 100 Room Air 100 06/27/24 11:49 06/27/24 12:00 06/27/24 12:00 06/27/24 12:00 06/27/24 12:00 06/27/24 12:00 06/27/24 05:20 FiO2 40 06/27/24 11:03 Laboratory Results - last 24 hr 06/27/24 01:30: Chlamy pneumoniae PCR Not detected, Adenovirus (PCR) Not detect ed, B. pertussis DNA (PCR) Not detected, Coronavirus OC43 (PCR) Not detected, Coronavirus HKU1 (PCR) Not detected, Coronavirus 229E (PCR) Not detected, SARS-CoV-2 (PCR) Not detected, Coronavirus NL63 (PCR) Not detected, Human Metapneumovir PCR Not detected, Influenza A (H1) PCR Not detected, Influ A (H1N1/09) PCR Not detected, Influenza A (H3) PCR Not detected, Influenza Type A (PCR) Not detected, Influenza Type B (PCR) Not detected, M. pneumoniae (PCR) Not detected, Parainfluenza 1 (PCR) Not detected, Parainfluenza 2 (PCR) Not detected, Parainfluenza 3 (PCR) Not detected, Parainfluenza 4 (PCR) Not detected, RSV (PCR) Not detected, Entero/Rhino (PCR) Not detected 06/27/24 01:50: WBC 16.6 H, RBC 5.47 H, Hgb 17.8 H, Hct 54.6 H, MCV 99.9 H, MCH 32.6 H, MCHC 32.6, RDW 14.3, Plt Count 537 H, MPV 8.8, Neut % (Auto) 58.7, Lymph % (Auto) 31.8, [place] % (Auto) 4.5, Eos % (Auto) 2.5, Baso % (Auto) 2.5 H, Neut # (Auto) 9.8 H, Lymph # (Auto) 5.3 H, [place] # (Auto) 0.7, Eos # (Auto) 0.4, Baso # (Auto) 0.4 H, Total Counted 100, Neutrophils % (Manual) 51, Lymphocytes % (Manual) 34, Atypical Lymphs % 2.0, Monocytes % (Manual) 6, Eosinophils % (Manual) 3, Basophils % (Manual) 4.0 H, Platelet Estimate Slight increase, Anisocytosis 1+, PT 11.9, INR 1.07, Sodium 141, Potassium 4.7, Chloride 102, Carbon Dioxide 22, Anion Gap 21.7 H, BUN 10, Creatinine 0.90, Estimated GFR 61, Est GFR ( Amer) 74, Glucose 176 H, Calcium 8.8, Magnesium 1.9, Total Bilirubin 1.4 H, AST 60 H, ALT 42, Alkaline Phosphatase 75, Troponin I < 0.01, NT-Pro-B Natriuret Pep 1090 H, Total Protein 7.1, Albumin 4.1, Globulin 3.0, Albumin/Globulin Ratio 1.4, SARS-CoV-2 (PCR) Not detected, Influenza A Untype (PCR) Not detected, Influenza Type B (PCR) Not detected 06/27/24 02:51: Specimen Source Right radial, O2 % 100, ABG pH 7.37, ABG pCO2 42.3, ABG pO2 101.2 H, ABG HCO3 23.7, ABG Total CO2 25.0, ABG O2 Saturation 98, ABG Base Excess -1.7, Rafael Test Y, Vent Rate 20, Tidal Volume 380, PEEP 5 06/27/24 03:30: Urine Color Yellow, Urine Appearance Slightly cloudy, Urine pH 5.5, Ur Specific [place] >= 1.030, Urine Protein 2+ A, Urine Glucose (UA) Negative, Urine Ketones Negative, Urine Blood 1+ A, Urine Nitrate Negative, Urine Bilirubin Negative, Urine Urobilinogen 1.0, Ur Leukocyte Esterase Negative, Urine RBC 10-20, Urine WBC 5-10, Ur Squamous Epith Cells 5-10, Amorphous Sediment Trace, Urine Bacteria 1+, Hyaline Casts Occ 06/27/24 05:44: Sodium 137, Potassium 3.8, Chloride 101, Carbon Dioxide 31 H, Anion Gap 8.8, BUN 12, Creatinine 0.70 D, Estimated Creat Clear 70, Estimated GFR 82, Est GFR ( Amer) 99 D, Glucose 147 H, Calcium 8.3 L, Phosphorus 3.7, Magnesium 1.6 D, Troponin I 0.32 H, C-Reactive Protein 2.8, Procalcitonin 0.108, TSH 4.00, Free T4 1.40 06/27/24 06:20: WBC 12.6 H, RBC 5.07, Hgb 16.3 H, Hct 49.5 H, MCV 97.5, MCH 32.2 H, MCHC 33.0, RDW 14.4, Plt Count 365 D, MPV 8.4, Neut % (Auto) 77.2, Lymph % (Auto) 13.3, [place] % (Auto) 6.9, Eos % (Auto) 1.1, Baso % (Auto) 1.5, Neut # (Auto) 9.7 H, Lymph # (Auto) 1.7, [place] # (Auto) 0.9, Eos # (Auto) 0.1, Baso # (Auto) 0.2, ESR 5, Hemoglobin A1c 6.6 H 06/27/24 07:15: Specimen Source Right radial, O2 % 100%, ABG pH 7.46 H, ABG pCO2 34.6 L, ABG pO2 133.5 H, ABG HCO3 24.3, ABG Total CO2 25.3, ABG O2 Saturation 99, ABG Base Excess 0.5, Rafael Test Patient unable, Vent Rate 20, Tidal Volume 380, PEEP 5 06/27/24 08:05: Troponin I 0.50 H 06/27/24 11:19: POC Glucose 110 I & O for Last 24 hours: Intake & Output 06/24/24 06/25/24 06/26/24 06/27/24 23:59 23:59 23:59 23:59 Intake Total 495.863 / 495.863 Output Total 445 / 445 Balance 50.863 / 50.863 Weight 199 lb 15.983 oz Microbiology Reports for the Last 24 Hours: Microbiology 06/27/24 08:10 Sputum - Endotracheal Tube Aspirate Gram Stain - Final Constitutional Comments: intubated/sedated *Routine HEENT Exam Eye: Present PERRL *Routine Respiratory Exam Respiratory: Present CTA bilaterally; Absent accessory muscle use, wheezes or crackles Comments: intubated on low vent settings *Routine Cardiovascular Exam Cardiovascular: Present RRR, Normal S1 and Normal S2; Absent murmur, gallop or rubs *Routine Abdominal Exam Abdominal: Present soft; Absent tenderness *Routine Extremities Exam Extremities: Present pulses intact; Absent cyanosis or edema *Routine Skin Exam Skin: Present intact; Absent erythema or wounds *Routine Neurological Exam Neurological: Present alert and oriented X3 Routine Psychiatric Exam Psychiatric: Present cooperative Meds Home Medications and Allergies Home Medications ?Medication ?Instructions ?Recorded ?Confirmed ?Type ropinirole 1 mg tablet 1 mg PO BID 02/24/18 06/27/24 History aspirin 81 mg chewable tablet 81 mg PO DAILY 07/19/18 06/27/24 History atorvastatin 10 mg tablet 10 mg PO HS 02/19/23 06/27/24 History levothyroxine 50 mcg tablet 50 mcg PO DAILY 02/19/23 06/27/24 History gabapentin 800 mg tablet 800 mg PO TIDP PRN neuropathic pain 07/10/23 06/27/24 History insulin glargine 100 40 unit SQ DAILY 07/10/23 06/27/24 History unit-lixisenatide 33 mcg/mL subcutaneous pen (Soliqua 100/33) fluticasone fur. 100 mcg-umeclid See Rx Instructions .Route 01/18/24 04/21/24 History 62.5 mcg-vilant 25 mcg .COMPLEX PRN NO inhalat.powder (Trelegy Ellipta) paroxetine HCl 30 mg tablet 30 mg PO DAILY 01/18/24 06/27/24 History albuterol sulfate 90 mcg/actuation 2 puff inhalation Q6HP PRN 01/23/24 04/21/24 Rx aerosol inhaler (Ventolin HFA) Shortness Of Breath 30 days #1 ea carvedilol 6.25 mg tablet (Coreg) 6.25 mg PO BID #180 tabs 04/11/24 06/27/24 Rx lisinopril 10 mg tablet 10 mg PO DAILY 06/27/24 06/27/24 History meloxicam 15 mg tablet 15 mg PO DAILY 06/27/24 06/27/24 History trazodone 100 mg tablet 100 mg PO HS 06/27/24 06/27/24 History New Prescriptions to Start Prescriptions: Allergies Allergy/AdvReac Type Severity Reaction Status Date / Time Penicillins [PENICILLINS] Allergy Unknown I-HIVES Verified 04/21/24 10:18 promethazine [PROMETHAZINE] Allergy Unknown MAKES Verified 04/21/24 10:18 CRAZY EXACERBATES RLS Assessment and Plan *Assessment and plan (1) Acute left systolic heart failure: Status: Acute Category: Medical Code(s): I50.21 - Acute systolic (congestive) heart failure Plan Acute Left Systolic Heart Failure - presumed stress cardiomyopathy with sudden weakening of LV wall following the of her - continue diuresis and O2 support per Pulm - Start Toprol XL, Entresto, Aldactone, Jardiance tomorrow when extubated - Discussed LHC with Dr. Patel who recommends CCTA once extubated - MRI later as outpatient - (myocarditis vs stress cardiomyopathy) Acute Myocardial Injury - mild trop elevation in setting of presumed stress cardiomyopathy - EKG unchanged from 1 year ago Htn - 120-170 here (weaning sedation leading to anxiety), cont to monitor/dose adjust Propafol - will start GDMT when extubated IDDM - well controlled with A1C 6.6 - glucose control per Hospitalist - will add SGLT-2 for HF later
--- NOTE | 2024-06-27 14:38 | ECG_ITS ---
APPROVED REPORT Exam: Resting ECG HR:172 bpm ECG Measurements Heart Rate 172 AXES QRSd 82 QRS 98 QT 243 T 0 QTc 336 Conclusion ATRIAL FIBRILLATION WITH RAPID VENTRICULAR RESPONSE WITH ABERRANT CONDUCTION OR VENTRICULAR PREMATURE COMPLEXES BORDERLINE RIGHT AXIS DEVIATION [QRS AXIS > 90] LOW QRS VOLTAGE [QRS DEFLECTION < 0.5/1.0 mV IN LIMB/CHEST LEADS] ANTEROLATERAL MYOCARDIAL INFARCTION , OF INDETERMINATE AGE [40+ ms Q WAVE IN I/aVL/V3-V6] CRITICAL TEST RESULT UNCONFIRMED REPORT Electronically signed by : Farrukh Fragoso MD 06/27/2024 17:28:01
[2024-06-27] MEDS: AMIODARONE HCL 150 MG in DEXTROSE 5 % IN WATER 100 ML 618 MG IV (15:14)
--- NOTE | 2024-06-27 15:16 | XR_ITS ---
PROCEDURE INFORMATION: Exam: XR Chest Exam date and time: 06/27/2024 3:36 PM Age: 73 years old Clinical indication: Shortness of breath; Additional info: SOB TECHNIQUE: Imaging protocol: Radiologic exam of the chest. Views: 1 view. COMPARISON: CT ANGIO CHEST PE PROTOCOL 06/27/2024 3:22 AM FINDINGS: Tubes, catheters and devices: There is an endotracheal tube in place, tip projects over the mid trachea. There is an enteric tube in place, tip projects below the diaphragm and off the level of the study. Lungs: See Pleural spaces finding. Pleural spaces: There are increased large bilateral pleural effusions with adjacent consolidation. Heart/Mediastinum: Stable cardiac and mediastinal contours. Vasculature: There are calcifications of the aortic arch. Bones/joints: No evidence of acute osseous abnormalities within the visualized portions of the thoracic spine and ribs. Osseous structures appear appropriate for patient age. IMPRESSION: There are increased large bilateral pleural effusions with adjacent consolidation.
[2024-06-27] MEDS: AMIODARONE HCL 900 MG in DEXTROSE 5 % IN WATER 500 ML 34.53 MG IV (15:26)
--- NOTE | 2024-06-27 16:00 | PC.NURSE ---
Respiratory care note: Pt extubated to 3L NC at this time. Sats=95%
[2024-06-27] MEDS: humaLOG 100 UNITS/ML 10ML VIAL (SSI) SUBCUT (17:07)
[2024-06-27 17:14] LABS: POC Glucose,Bedside 156 (70-110)
[2024-06-27] MEDS: ROPINIROLE 1MG TABLET 1 MG PO (18:26)
--- NOTE | 2024-06-27 18:42 | EXP.CCNOTE ---
Critical Care Event Note Summary Code activated: No Narrative: This case had a high probability of a clinically significant, sudden, or life threatening deterioration of this patient's condition which required my full and direct attention, intervention and personal management. Patient presented in acute respiratory failure. Was intubated in the ER. On rounds this morning, arrived to the floor. Sedated and intubated. After rounds however, showing improvement with initiation of diuresis. Significant urine output with diuresis. Sedation was weaned to allow for SBT. Patient became agitated, requesting, mouthing, miming to have the tube pulled out. Went into A-fib with RVR. Was initiated on amiodarone. Decision made to extubate. Extensive discussion with family and specialist including cardiology and pulmonology about her care. Presentation most consistent with acute decompensated heart failure. Echo obtained, preliminary read with EF 25%. Presentation concerning for stress-induced cardiomyopathy. Continuing antibiotics for pneumonia, weaned to Levaquin. ICU/Critical care attestation This patient is critically ill with 35 minutes devoted solely to this patient managing life/organ supporting interventions that required physician assessment. This includes time spent making adjustments in ventilator settings, IV fluid administration, titration of pressors, adjustments of medications, discussion of patient with consultants and other care providers as well as updating patient and/or family (if patient by virtue of his/her condition is unable to participate in decision making). This does not include time spent performing separately billed procedures. Time is not concurrent with that of other providers. Critical care time: 30 - 74 mins [facility] Critical Care Exam Physical Exam Vital signs: Temp Pulse Resp BP Pulse Ox O2 Del Method O2 Flow Rate 100.2 F H 120 H 22 147/73 H 97 Nasal Cannula 2 06/27/24 16:00 06/27/24 18:00 06/27/24 18:00 06/27/24 18:00 06/27/24 18:00 06/27/24 18:00 06/27/24 18:00 FiO2 30 06/27/24 13:35 Constitutional Constitutional: Present mild distress, obese, chronically ill appearing and cooperative Routine HEENT Exam Head: Present normocephalic and atraumatic Eye: Present EOMI ENT: Present mucous membranes moist Routine Respiratory Exam Respiratory: Present patient mechanically ventilated and crackles; Absent rhonchi or wheezes Routine Cardiovascular Exam Cardiovascular: Present tachycardia and irregularly irregular Routine Extremities Exam Extremities: Present edema; Absent cyanosis or clubbing
[2024-06-27] MEDS: SACUBITRIL/VALSARTAN 24-26MG TABLET 1 EACH PO (20:25)
[2024-06-27] MEDS: ATORVASTATIN 10MG TABLET 10 MG PO (20:26)
[2024-06-27] MEDS: GABAPENTIN 800MG TABLET 800 MG PO (20:34)
[2024-06-27 20:45] LABS: POC Glucose,Bedside 141 (70-110)
[2024-06-28] VITALS (23 sets, daily range): BP systolic 90–122; BP diastolic 31–61; PULSE 60–101; RESP 15–28; TEMP 36.3–36.8; O2SAT 92–100; BMI 34.1
[2024-06-28] MEDS: IPRATROPIUM/ALBUTEROL 3 ML NEB IH ×5 (00:08→23:10)
[2024-06-28] MEDS: LEVOFLOXACIN/D5W 750 MG/150 ML 750 MG/150 ML PIGGYBACK 100 MG IV (03:41)
[2024-06-28] MEDS: 0.9 % SODIUM CHLORIDE 500 ML 125 ML IV (04:15)
--- NOTE | 2024-06-28 04:15 | PC.NURSE ---
Patient vital signs steadily decreasing to maps maintaining below 65 x2hrs, and heart rate decreasing to 40's. Patient remains on amio gtt. Minimal urine output noted at 350ml since 0 on 06/28. KAY Mullins contacted and new orders placed. See MAR. Patient arouses easily to slight shaking and voice. Pt is alert and oriented x4, holding appropriate conversation, and able to voice needs. Patient FSBS obtained and results of 163. verbal orders to hold insulin dose.
[2024-06-28 04:26] LABS: POC Glucose,Bedside 163 (70-110)
[2024-06-28 06:47] LABS: Chloride 99 mmol/L (98-107); Potassium 3.7 mmoL/L (3.5-5.1); Sodium 137 mmol/L (136-145)
[2024-06-28 06:50] LABS: Alanine Aminotransferase 22 U/L (12-78); Alkaline Phosphatase 71 U/L (38-126); Anion Gap 10.7 mEq/L (5-15); Aspartate Amino Transferase 50 U/L (14-36); Bilirubin,Total 1.4 mg/dl (0.2-1.3); Blood Urea Nitrogen 20 mg/dl (7-17); Calcium 8.1 mg/dl (8.4-10.2); Carbon Dioxide 31 mmol/L (22.0-30.0); Creatinine Clearance Estimated 44 mL/min (50-200); Estimated Glomerular Filt Rate 31 ml/min (>60); GFR (African American) 38 ML/MIN (>60); Globulin 2.9 g/dL (1.3-3.2); Glucose 164 mg/dl (74-100); Total Protein,Serum 5.9 g/dl (6.3-8.2)
[2024-06-28 06:51] LABS: Basophils # 0.2 K/mm3 (0-0.2); Basophils % 1.1 % (0.1-2.0); Eosinophils # 0.1 K/mm3 (0.0-0.4); Eosinophils % 0.5 % (0.1-12.0); Hematocrit 49.9 % (37.0-47.0); Hemoglobin 16.3 g/dL (12.2-16.2); Lymphocytes # 2.7 K/mm3 (0.7-4.5); Magnesium 1.7 mg/dl (1.6-2.3); Mean Corpuscular HGB Conc 32.6 g/dL (31.8-35.4); Mean Corpuscular Hemoglobin 32.6 pg (27.0-31.2); Monocytes % 7.3 % (1.7-9.3); Neutrophils # 9.6 K/mm3 (1.8-7.8); Neutrophils % 71.2 % (37.0-80.0); Platelet Count 332 K/mm3 (142-424); Red Cell Distribution Width 14.3 % (11.5-17.5); White Blood Count 13.4 K/mm3 (4.8-10.8)
--- NOTE | 2024-06-28 07:35 | XR_ITS ---
PROCEDURE INFORMATION: Exam: XR Chest Exam date and time: 06/28/2024 8:52 AM Age: 73 years old Clinical indication: Shortness of breath; Additional info: F/u pnx, edema, effusions TECHNIQUE: Imaging protocol: Radiologic exam of the chest. Views: 1 view. COMPARISON: CR XR CHEST PORTABLE 06/27/2024 3:36 PM FINDINGS: Lungs: Decreasing interstitial prominence is noted with small area of airspace disease in the retrocardiac regions of the left lower lobe. Pleural spaces: Unremarkable. No pleural effusion. No pneumothorax. Heart/Mediastinum: Unremarkable. No cardiomegaly. Bones/joints: Degenerative changes are noted in the bones. IMPRESSION: Improving pulmonary edema, small retrocardiac consolidation suspected. Interval extubation.
[2024-06-28] MEDS: LEVOTHYROXINE 50MCG (0.05MG) TAB 50 MCG PO (07:57)
--- NOTE | 2024-06-28 08:16 | HMH.PHAINT1 ---
Pharmacy Intervention Comments: Home medication list verified using list from outpatient pharmacy
[2024-06-28] MEDS: ENOXAPARIN 40MG/0.4ML SYRINGE 40 MG SUBCUT (08:40)
[2024-06-28] MEDS: EMPAGLIFLOZIN 10MG TABLET 10 MG PO (08:40)
[2024-06-28] MEDS: ASPIRIN 81MG CHEWABLE TABLET 81 MG PO (08:40)
[2024-06-28] MEDS: PARoxetine 20MG TABLET 30 MG PO (08:41)
[2024-06-28] MEDS: ROPINIROLE 1MG TABLET 1 MG PO ×2 (08:41→20:41)
[2024-06-28] MEDS: SACUBITRIL/VALSARTAN 24-26MG TABLET 1 EACH PO ×2 (08:41→20:41)
[2024-06-28] MEDS: METOPROLOL SUCCINATE XL 25MG TABLET 25 MG PO (08:41)
[2024-06-28] MEDS: SPIRONOLACTONE 25MG TABLET 25 MG PO (08:42)
[2024-06-28] MEDS: GABAPENTIN 800MG TABLET 800 MG PO ×2 (08:47→20:46)
--- NOTE | 2024-06-28 09:24 | HMH.PTEV ---
Physical Therapy Evaluation Rehab PT IP Evaluation Start: 06/27/24 18:40 Freq: ONCE Status: Active Protocol: Document 06/28/24 09:17 HELEN (Rec: 06/28/24 09:24 HELEN [id number]) Subjective/History History History Per H&P: This is a 73-year- old female with past medical history of HTN, HLD, T2DM, COPD, hypothyroidism who presents emergency department today in respiratory distress. Family is at bedside and provides collateral and states that she was in her normal state of health today, went to denominational. Started having some mild shortness of breath this evening but went to bed normally. She then woke her family up stating that she had to go to the emergency department. Family stated it was very hard to get her out the door and into the car. Once in the car she had to passing out spells . They deny any recent complaints of her being sick. They denied any complaints of chest pain. They do state that she lost her approximately 1 month ago and has been very stressed since then. Subjective Subjective Pt pleasantly agreeable to PT mobility assessment. Pt currently lives with her sister in a 2-story home with a stair lift chair. Pt uses a cane for IND ambulation and also owns a RW. Pt used O2 as needed at home. Pt has [address] home. Pt still driving prior to admission. New diagnosis of cancer in past 12 No months? Rehab PT IP Eval Objective Appearance Patient Behavior Appropriate,Cooperative Patient Orientation Person,Situation Difficulty following instructions none Speech Pattern Clear Ambulation Patient Able to Ambulate Yes Ambulation Observation IP General Gait Pattern Observation Wide Based Gait Ambulation Distance (feet) 20 Ambulation Assistive Device Rolling Walker Ambulation Ability Contact Guard/Hand Hold Balance Ability to Arise Able, uses arms to help Sitting Balance Steady, safe Standing Balance Steady, wide stance Dynamic Sitting Balance Ability Good Dynamic Standing Balance Ability Good Transfers Bed Transfer Ability Supervision/Stand by Sit to Stand Bed Transfer Ability Contact Guard/Hand Hold Rehab PT IP prob,goals,plan Problems Date of Evaluation: 06/28/24 PT IP Problems Transfers,Gait,Balance Rehab Potential Rehab Potential Good Plan PT Intervention Plan Transfers,Gait,Balance,Safety, Therapeutic Exercise Other Intervention Plan 1-2 times PT Plan Frequency Daily Duration LOS Discharge Plan PT Discharge Plan Initial physical therapy evaluation performed. Patient presents below baseline at this time in functional mobility, transfers, gait, and strength. Pt would benefit from skilled PT while at [facility] to prevent further functional decline and maximize safety with mobility. Pt demo'd safe ambulation when using RW. Pt used a cane at baseline. Pt with some endurance impairments. Pt safe to d/c home when deemed medically necessary d/t current level of mobility, home set-up, and family support. PT recommending home health PT services to address deficits. PHYSICIAN CERTIFICATION: I certify the specified therapy services for Michelle Fuller are required, authorized, and reviewed every 30 days.
--- NOTE | 2024-06-28 09:50 | ECG_ITS ---
APPROVED REPORT Exam: Resting ECG HR:68 bpm ECG Measurements Heart Rate 68 AXES OH 188 P 36 QRSd 91 QRS 25 QT 406 T 172 QTc 424 Conclusion SINUS RHYTHM LOW QRS VOLTAGE IN EXTREMITY LEADS [QRS DEFLECTION < 0.5 mV IN LIMB LEADS] ANTEROSEPTAL MYOCARDIAL INFARCTION , OF INDETERMINATE AGE [40+ ms Q WAVE IN V1-V4] MODERATE T-WAVE ABNORMALITY, CONSIDER LATERAL ISCHEMIA [-0.1+ mV T-WAVE IN I/aVL/V5/V6] ABNORMAL ECG UNCONFIRMED REPORT Electronically signed by : Farrukh Fragoso MD 06/28/2024 15:53:19
--- NOTE | 2024-06-28 09:55 | EXP.PULM.PN ---
Subjective *Date: 06/28/24 *Time: 11:27 Interval history: No acute respiratory vents overnight. Tolerating nasal cannula well. Pulmonology Exam Inpatient Vital signs and Labs for Last 24 Hours: Temp Pulse Resp BP Pulse Ox O2 Del Method O2 Flow Rate 97.8 F 69 18 114/48 L 98 Nasal Cannula 2.5 06/28/24 08:00 06/28/24 09:00 06/28/24 09:00 06/28/24 09:00 06/28/24 09:00 06/28/24 09:00 06/28/24 09:00 FiO2 30 06/27/24 13:35 Laboratory Results - last 24 hr 06/27/24 06:20: Hemoglobin A1c 6.6 H 06/27/24 11:19: POC Glucose 110 06/27/24 16:45: POC Glucose 156 H 06/27/24 20:38: POC Glucose 141 H 06/28/24 04:18: POC Glucose 163 H 06/28/24 05:26: WBC 13.4 H, RBC 5.00, Hgb 16.3 H, Hct 49.9 H, MCV 100.0 H, MCH 32.6 H, MCHC 32.6, RDW 14.3, Plt Count 332, MPV 9.0, Neut % (Auto) 71.2, Lymph % (Auto) 20.0, [place] % (Auto) 7.3, Eos % (Auto) 0.5, Baso % (Auto) 1.1, Neut # (Auto) 9.6 H, Lymph # (Auto) 2.7, [place] # (Auto) 1.0, Eos # (Auto) 0.1, Baso # (Auto) 0.2, Sodium 137, Potassium 3.7, Chloride 99, Carbon Dioxide 31 H, Anion Gap 10.7, BUN 20 H D, Creatinine 1.60 H D, Estimated Creat Clear 44, Estimated GFR 31 L, Est GFR ( Amer) 38 L D, Glucose 164 H, Calcium 8.1 L, Magnesium 1.7, Total Bilirubin 1.4 H, AST 50 H, ALT 22 D, Alkaline Phosphatase 71, Total Protein 5.9 L, Albumin 3.0 L D, Globulin 2.9, Albumin/Globulin Ratio 1.0 L I & O for Labs for Last 24 Hours: Intake & Output 06/25/24 06/26/24 06/27/24 06/28/24 23:59 23:59 23:59 23:59 Intake Total 805.345 / 805.345 750 / 750 Output Total 2400 / 2430 120 / 120 Balance -1594.655 / -1624.655 630 / 630 Weight 199 lb 15.983 oz 199 lb 15.983 oz Microbiology Reports for the Last 24 Hours: Microbiology 06/27/24 01:50 Blood Blood Culture - Preliminary NO GROWTH AFTER 24 HOURS 06/27/24 01:50 Blood Blood Culture - Preliminary NO GROWTH AFTER 24 HOURS 06/27/24 08:10 Sputum - Endotracheal Tube Aspirate Gram Stain - Final Constitutional: Present moderate distress Head: Present normocephalic and atraumatic ENT: Present normal exam, normal oropharynx and mucous membranes moist Neck: Present normal inspection and full ROM Respiratory: Present respiratory distress, rhonchi, crackles, diminished air movement and able to speak in complete sentences; Absent prolonged expiratory phase or wheezes Cardiac: Present S1/S2, Tachycardia and radial pulses present GI: Present soft and distention; Absent tenderness or guarding Rectal (female): Present deferred (female): Present deferred Skin: Present intact; Absent cyanosis or jaundice Neuro: Present alert, awake and oriented x 3 Extremities: Present normal inspection and edema; Absent clubbing or cyanosis Psychiatric: Present normal affect and cooperative Assessment and Plan *Assessment and plan (1) On mechanically assisted ventilation: Status: Acute Category: Medical Code(s): Z99.11 - Dependence on respirator [ventilator] status (2) Acute respiratory failure with hypoxia: Status: Acute Category: Medical Code(s): J96.01 - Acute respiratory failure with hypoxia (3) Pleural effusion, bilateral: Status: Acute Category: Medical Code(s): J90 - Pleural effusion, not elsewhere classified Plan Ms. Fuller is a 73-year-old female with reported of hypertension dyslipidemia diabetes mellitus COPD presented to the ER with worsening respiratory distress, and upon presentation to the ER patient was found to be cyanotic needing intubation and mechanical ventilatory support. CTA PE protocol upon admission evidence of pulmonary embolism but bilateral diffuse groundglass opacity with septal thickening and bilateral moderate pleural effusions concerning for volume overload. No dense consolidative/airspace changes noted. No significant emphysematous changes appreciated on the CT scan. Neutrophilic predominant leukocytosis improving. Complains of respiratory viral PCR panel negative. On admission was initiated on broad-spectrum antibiotics including vancomycin and cefepime. DuoNebs every 6 scheduled. Receiving diuretics. Interval Update: Successfully extubated to nasal cannula yesterday. Tolerating well. Cardiology following, receiving diuretics. Receiving levofloxacin. Patient at baseline using Trelegy 100 inhaler. No significant smoking history. Secondhand smoke exposure. Denies any known history of asthma/allergies. She is also using oxygen supplementation at night at 2 L but denies any supplementations during the daytime. Echocardiogram EF at 25%. LV apical wall akinetic RVSP elevated. Plan: -Continue oxygen supplementation to maintain O2 saturation goal of 90% and above, weaned to 1 L this morning. Continue to wean as tolerated. -Change inhalers to Anoro. Will follow as an outpatient basis with a PFT walk testing to further determine the need for possible pulmonary etiology warranting inhaler therapy. -Continue levofloxacin to complete a total of 3-day course. Day 10/31. # Thank you for involving pulmonary in this patient care. Will continue to follow.
--- NOTE | 2024-06-28 10:06 | SW/DCPLANNER ---
Addendum entered by Cristina Richardson 07/01/24 12:03: I have updated Mitesh regarding discharge date 06/30/24. Addendum entered by [facility] 06/30/24 10:52: I have updated Mitesh that patient did not discharge yesterday. I will continue to keep home health posted. Addendum entered by [facility] 06/29/24 13:46: Mitesh has stated that services will start this week. Addendum entered by [facility] 06/29/24 12:51: Patient information/order has been faxed to Mitesh dejesus/ [facility]. Addendum entered by [facility] 06/29/24 09:32: Patient is now agreeable to home health services at time of discharge. Patient does not have a preference at to which home health agency. I will set up services at time of discharge. Patient stated that she does have a walker and a cane at home. Original Note: I spoke w/ this patient regarding plans once medically stable for discharge. PT/OT evaluated patient and recommended home health services. I spoke w/ patient this AM regarding home health. Patient voiced that she is not interested in home health services at this time. I will continue to follow up w/ this patient until medically stable for discharge. Discharge date is unknown at this time.
--- NOTE | 2024-06-28 10:14 | HMH.OTEV ---
OT Inpatient Evaluation Rehab OT IP Evaluation Start: 06/27/24 18:40 Freq: ONCE Status: Active Protocol: Document 06/28/24 10:[address] [facility] (Rec: 06/28/24 10:13 [facility] [id number]) Rehab OT IP Assessment Subjective History Pt oriented x 3 on arrival. Pt agreeable to engage in therapy evaluation. Pt admitted on 06/27/24 due to respiratory failure. History and physical: This is a 73-year-old female with past medical history of HTN, HLD, T2DM, COPD, hypothyroidism who presents emergency department today in respiratory distress. Family is at bedside and provides collateral and states that she was in her normal state of health today, went to cheondoism. Started having some mild shortness of breath this evening but went to bed normally. She then woke her family up stating that she had to go to the emergency department. Family stated it was very hard to get her out the door and into the car. Once in the car she had to passing out spells . They deny any recent complaints of her being sick. They denied any complaints of chest pain. They do state that she lost her approximately 1 month ago and has been very stressed since then. Subjective I am feeling much better. Prior to being in the hospital , pt lived at home with her sister. Pt claims normally she is independent with all ADLs and IADLs. Pt does use a cane during functional transfers, but also has a walker in case she needs more assistance. Pt does use oxygen as needed at home. Pt also still drives when needed. Objective Patient Orientation Person,Place,Birthday Right Upper Extremity Gross ROM WFL Left Upper Extremity Gross ROM WFL Bed Mobility bed mobility-scooting,bed mobility - supine/sit Assist Level Supervision/Stand by Transfer Training Sit/Stand Transfer Assist Level Supervision/Stand by Lower Body Dressing Ability Standby Assistance Performing Toilet Hygiene Ability Standby Assistance Overall Commode/Toilet Transfer Ability Standby Assistance Commode/Toilet Transfer Technique Sit to/from Ambulatory Rehab OT IP prob,goals,plan Problems Date of Evaluation: 06/28/24 Rehab Potential Rehab Potential Innapropriate for Skilled Therapy Discharge Plan OT Discharge Plan Pt appears to be at baseline with functional transfers and ADL independence. Pt can return home with her sister once she is medically stable. Therapist does recommend a HH OT evaluation upon returning home in order to evaluate environmental safety and IADL independence. Pt agreeable with this plan. Eval Complexity Eval Charge Codes 63281 - Low Complexity PHYSICIAN CERTIFICATION: I certify the specified therapy services for Michelle Fuller are required, authorized, and reviewed every 30 days.
[2024-06-28] MEDS: 0.9 % SODIUM CHLORIDE 1000ML 1,000 ML 999 ML IV (10:31)
[2024-06-28] MEDS: AMIODARONE 200MG TABLET 400 MG PO ×2 (10:31→20:41)
--- NOTE | 2024-06-28 10:39 | P.PN_ITS ---
Subjective Subjective Date: 06/28/24 Time: 09:30 Interval history: Pt extubated and only on 2L/min O2. Feeling good, sitting up in bed, alert and energetic. Cr up from 0.7 to 1.6 Exam Data for Last 24 hours Vital signs and Labs for Last 24 Hours: Temp Pulse Resp BP Pulse Ox O2 Del Method O2 Flow Rate 97.8 F 67 16 107/56 L 96 Nasal Cannula 1.5 06/28/24 08:00 06/28/24 10:00 06/28/24 10:00 06/28/24 10:00 06/28/24 10:00 06/28/24 10:00 06/28/24 10:00 FiO2 30 06/27/24 13:35 Laboratory Results - last 24 hr 06/27/24 06:20: Hemoglobin A1c 6.6 H 06/27/24 11:19: POC Glucose 110 06/27/24 16:45: POC Glucose 156 H 06/27/24 20:38: POC Glucose 141 H 06/28/24 04:18: POC Glucose 163 H 06/28/24 05:26: WBC 13.4 H, RBC 5.00, Hgb 16.3 H, Hct 49.9 H, MCV 100.0 H, MCH 32.6 H, MCHC 32.6, RDW 14.3, Plt Count 332, MPV 9.0, Neut % (Auto) 71.2, Lymph % (Auto) 20.0, [place] % (Auto) 7.3, Eos % (Auto) 0.5, Baso % (Auto) 1.1, Neut # (Auto) 9.6 H, Lymph # (Auto) 2.7, [place] # (Auto) 1.0, Eos # (Auto) 0.1, Baso # (Auto) 0.2, Sodium 137, Potassium 3.7, Chloride 99, Carbon Dioxide 31 H, Anion Gap 10.7, BUN 20 H D, Creatinine 1.60 H D, Estimated Creat Clear 44, Estimated GFR 31 L, Est GFR ( Amer) 38 L D, Glucose 164 H, Calcium 8.1 L, Magnesium 1.7, Total Bilirubin 1.4 H, AST 50 H, ALT 22 D, Alkaline Phosphatase 71, Total Protein 5.9 L, Albumin 3.0 L D, Globulin 2.9, Albumin/Globulin Ratio 1.0 L I & O for Last 24 hours: Intake & Output 06/25/24 06/26/24 06/27/24 06/28/24 23:59 23:59 23:59 23:59 Intake Total 805.345 / 805.345 810 / 810 Output Total 2400 / 2430 150 / 150 Balance -1594.655 / -1624.655 660 / 660 Weight 199 lb 15.983 oz 199 lb 15.983 oz Microbiology Reports for the Last 24 Hours: Microbiology 06/27/24 01:50 Blood Blood Culture - Preliminary NO GROWTH AFTER 24 HOURS 06/27/24 01:50 Blood Blood Culture - Preliminary NO GROWTH AFTER 24 HOURS 06/27/24 08:10 Sputum - Endotracheal Tube Aspirate Gram Stain - Final Constitutional Constitutional: no acute distress and cooperative *Routine HEENT Exam Eye: Present PERRL *Routine Respiratory Exam Respiratory: Present CTA bilaterally; Absent accessory muscle use, wheezes or crackles *Routine Cardiovascular Exam Cardiovascular: Present RRR, Normal S1 and Normal S2; Absent murmur, gallop or rubs *Routine Abdominal Exam Abdominal: Present soft; Absent tenderness *Routine Extremities Exam Extremities: Present pulses intact; Absent cyanosis or edema *Routine Skin Exam Skin: Present intact; Absent erythema or wounds *Routine Neurological Exam Neurological: Present alert and oriented X3 Routine Psychiatric Exam Psychiatric: Present cooperative Progress Note: A&P Assessment and plan (1) Acute respiratory failure with hypoxia: Status: Acute (2) Pleural effusion, bilateral: Status: Acute (3) HFrEF (heart failure with reduced ejection fraction): Status: Acute (4) Stress-induced cardiomyopathy: Status: Acute Assessment and Plan Assessment and Plan for All Diagnoses:: Acute Left Systolic Heart Failure - presumed stress cardiomyopathy with sudden weakening of LV wall following the of her - continue diuresis and O2 support per Pulm - Start Toprol XL, Entresto, Aldactone, Jardiance post extubation - Discussed LHC with Dr. Patel who recommends CCTA - MRI later as outpatient - (myocarditis vs stress cardiomyopathy) - Pt agreeable to LifeVest Acute Myocardial Injury - mild trop elevation in setting of presumed stress cardiomyopathy - EKG unchanged from 1 year ago - normal stress test last year - will check CCTA for evidence of ischemia A-fib RVR - noted on telemetry 10/28 - can transition from IV to PO Amio - CHADS-VASC = 5, start renally adjusted Xarelto (can probably transition to full dose at discharge) Htn - 120-170 here (weaning sedation leading to anxiety), cont to monitor/dose adjust Propafol - start GDMT for HF IDDM - well controlled with A1C 6.6 - glucose control per Hospitalist - will add SGLT-2 for HF later *Start GDMT for HF today. Check CCTA for underlying ischemia, order LifeVest. Possibly home tomorrow.
[2024-06-28] MEDS: FLUTICASONE/UMECLIDIN/VILANTER 100/62.5/25MCG INHALER 1 PUFF IH (10:54)
[2024-06-28 11:27] LABS: POC Glucose,Bedside 129 (70-110)
[2024-06-28 14:13] LABS: MRSA DNA PCR Negative (Negative)
[2024-06-28] MEDS: RIVAROXABAN 15MG TABLET 15 MG PO (17:05)
[2024-06-28 17:22] LABS: POC Glucose,Bedside 101 (70-110)
--- NOTE | 2024-06-28 18:06 | PC.NURSE ---
Patient remains A/O able to voice needs to staff. Patient tolerating nasal cannula at 1L with sats remaining above 90%. Multiple family members visited throughout the day. Elam cath discontinued, patient has voided since cath discontinued. Reviewed POC and d/c goals with patient, patient v/u and has no new c/o.
[2024-06-28] MEDS: ATORVASTATIN 10MG TABLET 10 MG PO (20:41)
[2024-06-28] MEDS: TRAZODONE 50MG TABLET 100 MG PO (20:42)
[2024-06-28] MEDS: humaLOG 100 UNITS/ML 10ML VIAL (SSI) SUBCUT (20:46)
[2024-06-28 20:55] LABS: POC Glucose,Bedside 195 (70-110)
--- NOTE | 2024-06-28 21:27 | P.PN_ITS ---
Subjective *Date: 06/28/24 *Time: 21:27 Interval history: Patient feels well today, much better than yesterday. No chest pain, SOB. Exam Data for Last 24 hours Vital signs and Labs for Last 24 Hours: Temp Pulse Resp BP Pulse Ox O2 Del Method O2 Flow Rate 98.3 F 74 28 H 115/38 L 94 L Nasal Cannula 1 06/28/24 20:00 06/28/24 20:00 06/28/24 20:00 06/28/24 20:00 06/28/24 16:00 06/28/24 20:57 06/28/24 20:57 FiO2 28 06/28/24 18:59 Laboratory Results - last 24 hr 06/27/24 11:05: MRSA (PCR) Negative 06/28/24 04:18: POC Glucose 163 H 06/28/24 05:26: WBC 13.4 H, RBC 5.00, Hgb 16.3 H, Hct 49.9 H, MCV 100.0 H, MCH 32.6 H, MCHC 32.6, RDW 14.3, Plt Count 332, MPV 9.0, Neut % (Auto) 71.2, Lymph % (Auto) 20.0, [place] % (Auto) 7.3, Eos % (Auto) 0.5, Baso % (Auto) 1.1, Neut # (Auto) 9.6 H, Lymph # (Auto) 2.7, [place] # (Auto) 1.0, Eos # (Auto) 0.1, Baso # (Auto) 0.2, Sodium 137, Potassium 3.7, Chloride 99, Carbon Dioxide 31 H, Anion Gap 10.7, BUN 20 H D, Creatinine 1.60 H D, Estimated Creat Clear 44, Estimated GFR 31 L, Est GFR ( Amer) 38 L D, Glucose 164 H, Calcium 8.1 L, Magnesium 1.7, Total Bilirubin 1.4 H, AST 50 H, ALT 22 D, Alkaline Phosphatase 71, Total Protein 5.9 L, Albumin 3.0 L D, Globulin 2.9, Albumin/Globulin Ratio 1.0 L 06/28/24 11:19: POC Glucose 129 H 06/28/24 17:05: POC Glucose 101 06/28/24 20:40: POC Glucose 195 H I & O for Last 24 hours: Intake & Output 06/25/24 06/26/24 06/27/24 06/28/24 23:59 23:59 23:59 23:59 Intake Total 805.345 / 719.642 8161 / 1810 Output Total 2400 / 2430 150 / 150 Balance -1594.655 / -9909.985 1819 / 1660 Weight 90.718 kg 90.718 kg Microbiology Reports for the Last 24 Hours: Microbiology 06/27/24 01:50 Blood Blood Culture - Preliminary NO GROWTH AFTER 24 HOURS 06/27/24 01:50 Blood Blood Culture - Preliminary NO GROWTH AFTER 24 HOURS Constitutional Constitutional: no acute distress *Routine HEENT Exam Head: Present normocephalic Eye: Present EOMI and PERRL ENT: Present mucous membranes moist *Routine Neck Exam Neck: Present supple; Absent lymphadenopathy *Routine Respiratory Exam Respiratory: Present CTA bilaterally *Routine Cardiovascular Exam Cardiovascular: Present RRR *Routine Abdominal Exam Abdominal: Present soft and normoactive bowel sounds; Absent tenderness *Routine Extremities Exam Extremities: Absent cyanosis, clubbing or edema *Routine Skin Exam Skin: Present warm; Absent rash *Routine Neurological Exam Neurological: Present alert and oriented X3 Assessment and Plan *Assessment and plan (1) Pulmonary edema: Status: Acute Qualifiers: Chronicity: acute Qualified Code(s): J81.0 - Acute pulmonary edema Category: Medical Code(s): J81.1 - Chronic pulmonary edema (2) Acute respiratory failure with hypoxia: Status: Acute Category: Medical Code(s): J96.01 - Acute respiratory failure with hypoxia (3) Severe sepsis: Status: Acute Category: Medical Code(s): A41.9 - Sepsis, unspecified organism; R65.20 - Severe sepsis without septic shock (4) Hypothyroid: Status: Chronic Qualifiers: Hypothyroidism type: acquired Qualified Code(s): E03.9 - Hypothyroidism, unspecified Category: Medical Code(s): E03.9 - Hypothyroidism, unspecified (5) COPD with exacerbation: Status: Acute Category: Medical Code(s): J44.1 - Chronic obstructive pulmonary disease with (acute) exacerbation (6) Diabetes mellitus, type 2: Status: Chronic Qualifiers: Diabetes mellitus long term care administrator insulin use: without assisted use Diabetes mellitus complication status: without complication Qualified Code(s): E11.9 - Type 2 diabetes mellitus without complications Category: Medical Code(s): E11.9 - Type 2 diabetes mellitus without complications (7) Hypertension: Status: Acute Qualifiers: Hypertension type: primary hypertension Qualified Code(s): I10 - Essential (primary) hypertension Category: Medical Code(s): I10 - Essential (primary) hypertension (8) Hyperlipidemia: Status: Chronic Qualifiers: Hyperlipidemia type: mixed hyperlipidemia Qualified Code(s): E78.2 - Mixed hyperlipidemia Category: Medical Code(s): E78.5 - Hyperlipidemia, unspecified Plan #Acute respiratory failure with hypoxia #Severe sepsis, resolved #Pneumonia, community-acquired Likely multifactorial given pneumonia and right-sided heart failure requiring intubation. Extubated 06/27/24. Likely element of Takotsubo's cardiomyopathy given recent stressor of losing her ECHO reveals LVEF 25%, severe distal and apical akinetic adams. RVSP 35mmHg. Consulted cardiology, plan to perform CCTA tomorrow. Also started GDMT with Farxiga, Entresto, Aldactone, metoprolol succinate. Started PO lasix 40mg, IV lasix 40mg BID discontinued after overresponse with diuresis and EDINSON. Consulted pulmonology, started Levaquin and discontinue Vancomycin, cefepime. WBC improving to 13.4 today. Continue bronchodilators Blood cultures pending Sputum culture pending #Hypothyroidism Checking TSH and free T4 now Continue levothyroxine #T2DM Q6 sliding scale insulin A1c pending #Hypertension #Hyperlipidemia Continue home medications as appropriate, patient has been started on GDMT as above.
[2024-06-29] VITALS (14 sets, daily range): BP systolic 116–131; BP diastolic 45–64; PULSE 50–80; RESP 16–20; TEMP 36.6–36.7; O2SAT 88–95; BMI 26.9
[2024-06-29 05:37] LABS: POC Glucose,Bedside 127 (70-110)
[2024-06-29] MEDS: UMECLIDINIUM/VILANTEROL 62.5/25MCG INHALER 1 PUFF IH (06:12)
[2024-06-29] MEDS: IPRATROPIUM/ALBUTEROL 3 ML NEB IH ×3 (06:12→18:37)
[2024-06-29] MEDS: LEVOTHYROXINE 50MCG (0.05MG) TAB 50 MCG PO (06:40)
[2024-06-29] MEDS: INSULIN GLARGINE 100 UNITS/ML 3ML FLEXPEN 30 UNIT SUBCUT (06:40)
--- NOTE | 2024-06-29 06:52 | PC.NURSE ---
Alert and oriented. Patient has had no complaints. Small nose bleed, humidification added to NC, 1L NC. Pt has rested throughout the night. Call light in reach.
--- NOTE | 2024-06-29 07:00 | CT_ITS ---
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 A noncontrast coronary calcium scan was performed. A CT attenuation threshold of 130 Hounsfield units (HU) was used for the detection of calcium in contiguous voxels of 1 sq mm in area to be counted as individual lesions. Bolus tracking in the ascending aorta with a threshold of 180 HU was performed. Immediately afterwards, ECG synchronized cardiac CT was then performed from the cardiac base to apex using retrospective gating with ECG tube current modulation. A total of 85 mL of Isovue 370 mg/mL contrast medium was administered at 5 mL/sec followed by a saline flush using a biphasic injection protocol. A tube voltage of 120 KVp was used. No premedications were administered. The average heart rate at the time of acquisition was 56 bpm and regular. Image Reconstruction Transaxial images were reconstructed at 0.67 mm slide thickness. Data was reviewed interactively on an advanced workstation capable of 2 and 3-dimensional displays in all conventional reconstruction formats, including multiplanar reformations, maximum intensity projections, curved multiplanar reformations, and volume rendered reconstructions. When applicable, selected routine images describing the relevant coronary anatomy and pathology were saved and sent to PACS. Complications None Technical Quality Overall image quality was good. Coronary artery opacification was adequate. Total DLP (Dose-Length Product) is 2879.1 mGy-cm. The reported value represents the total of one or more individual components during the CT acquisition of this date and at this time, and as such, the same value may appear in more than one CT report depending on the interpreting/reporting physicians. COMPARISON None FINDINGS CT Coronary Calcium Scoring LMA (Left Main Artery) = 63 LAD (Left Anterior Descending) = 58 LCX (Left Coronary Circumflex) = 0 RCA (Right Coronary Artery) = 145 Total Calcium Score = 266 using the AJ-130 method. The observed calcium score of 266 is at 77th percentile for subjects of the same age, sex, and race/ethnicity. The interpretation of the calcium heart score is based on the following continuum*: 0 = no calcified plaque detected (risk of coronary artery disease is very low ??? less than 5%) 1-10 = calcium detected in extremely minimal levels (risk of coronary diseases is still low ??? less than 10%) 11-100 = mild levels of plaque detected with certainty (mild or minimal narrowing of heart arteries is likely) 101-400 = definite,at least moderate levels of plaque detected (relatively high risk of a heart attack within 3-5 years) >401-999 = extensive levels of plaque detected (high risk of heart attack, high levels of vascular disease are present, high likelihood of at least one significant coronary narrowing) *The calcium heart score quantifies the burden of coronary calcification/plaque in the coronary arteries. The calcium heart score is not able to evaluate the presence or burden of non-calcified (i.e. soft) plaque. There is also calcification noted in the aortic valve, mitral annulus, and the ascending and descending thoracic aorta. Coronary CT Angiography The coronary arterial system is right dominant. Quantitative Stenosis Grading: Left Main (LM): The left main originates normally from the left sinus of Valsalva. The LM bifurcates into the left anterior descending artery and left circumflex artery. There is a focus of calcification noted in the proximal LM segment, with no evidence of luminal stenosis. Left Anterior Descending (LAD) and Diagonal Branches: The LAD gives off 3 diagonal branch(es). There is mixed calcified/noncalcified plaque noted in the proximal and mid LAD segments, with up to 25-49% luminal stenosis. There is no evidence of LAD-myocardial bridge. Left Circumflex (LCX) and Obtuse Marginals (OM): The LCX gives off 2 Obtuse Marginal (OM) branch(es). The LCX and its branches are patent with no evidence of atherosclerosis. Right Coronary Artery (RCA): The RCA originates normally from the right sinus of Valsalva. The RCA gives off a posterior descending artery (PDA) and posterolateral (PL) branches. There is mixed calcified/noncalcified plaque noted in the proximal RCA segment, with up to 25-49% luminal stenosis. Non-Coronary Cardiac Findings: Analysis of the left ventricular (LV) structure and function was performed after 3-D reconstruction of the LV from axial images, with user-corrected automatic contouring for assessment of LV volumes and user-defined reconstruction from oblique planes for measurement of 3-D cardiac structure and function. -The left ventricle systolic function is reduced. -There is incomplete opacification of the distal LA appendage. This likely reflects the early timing of image acquisition, but perfusion defect cannot be entirely ruled out. Two right pulmonary veins and two left pulmonary veins drain normally into the left atrium. -No pericardial thickening or calcification. -Central and branch pulmonary arteries in the [id number] are unremarkable. -Thoracic aorta within the visualized thoracic aortic-branches in the [id number] is unremarkable. Extracardiac Structures No significant extra-cardiac findings. Note, however, that this study is focused on the cardiac findings. IMPRESSION -Presence of coronary calcification with an Agatston score = 266 using the AJ-130 method. -The observed calcium score of 266 is at 77th percentile for subjects of the same age, sex, and race/ethnicity. -Mild nonobstructive atherosclerosis in the LAD and RCA segments, with no evidence of significant flow-limiting atherosclerosis of the coronary arteries. -CAD-RADS 2. Management recommendations per ACC/AHA guidelines*, as clinically appropriate. -The LV systolic function is reduced. Correlation with recent or new TTE is suggested. *Recommendations: CAD RADS 0: Reassurance. Consider non-atherosclerotic causes of chest pain. CAD RADS 1: Consider non-atherosclerotic causes of chest pain. Consider preventive therapy and risk factor modification. CAD RADS 2: Consider non-atherosclerotic causes of chest pain. Consider preventive therapy and risk factor modification, particularly for patients with nonobstructive plaque in multiple segments. CAD RADS 3: Consider further functional testing. Consider symptom-guided anti-ischemic and preventive pharmacotherapy as well as risk factor modification per published guideline statements. CAD RADS 4A: Consider further functional testing or invasive coronary angiography with revascularization per published guideline statements. Consider symptom-guided anti-ischemic and preventive pharmacotherapy as well as risk factor modification per published guideline statements. CAD RADS 4B: Invasive coronary angiography recommended with revascularization per published guideline statements. Consider symptom-guided anti-ischemic and preventive pharmacotherapy as well as risk factor modification per published guideline statements. CAD RADS 5: Consider invasive angiography and/or viability assessment with revascularization per published guideline statements. Consider symptom-guided anti-ischemic and preventive pharmacotherapy as well as risk factor modification per published guideline statements. CRITICAL RESULT None COMMUNICATION Per this written report The coronary and cardiac findings of this CCTA were reviewed, reported, and signed by Farshad Chong MD (Dental Equipment Mechanic) Conclusion Electronically signed by : Connie Chong MD 06/30/2024 12:32:42
[2024-06-29 07:01] LABS: Albumin Level 2.9 g/dl (3.5-5.0); Chloride 104 mmol/L (98-107); Potassium 3.2 mmoL/L (3.5-5.1); Sodium 137 mmol/L (136-145)
[2024-06-29 07:04] LABS: Alanine Aminotransferase 16 U/L (12-78); Albumin/Globulin Ratio 1.2 (1.1-1.8); Alkaline Phosphatase 71 U/L (38-126); Anion Gap 8.2 mEq/L (5-15); Aspartate Amino Transferase 35 U/L (14-36); Bilirubin,Total 1.1 mg/dl (0.2-1.3); Blood Urea Nitrogen 22 mg/dl (7-17); Calcium 8.1 mg/dl (8.4-10.2); Carbon Dioxide 28 mmol/L (22.0-30.0); Creatinine Clearance Estimated 39 mL/min (50-200); Estimated Glomerular Filt Rate 37 ml/min (>60); GFR (African American) 44 ML/MIN (>60); Globulin 2.4 g/dL (1.3-3.2); Glucose 130 mg/dl (74-100); Total Protein,Serum 5.3 g/dl (6.3-8.2)
[2024-06-29] MEDS: SACUBITRIL/VALSARTAN 24-26MG TABLET 1 EACH PO ×2 (09:04→20:07)
[2024-06-29] MEDS: PARoxetine 20MG TABLET 30 MG PO (09:04)
[2024-06-29] MEDS: EMPAGLIFLOZIN 10MG TABLET 10 MG PO (09:04)
[2024-06-29] MEDS: METOPROLOL SUCCINATE XL 25MG TABLET 25 MG PO (09:04)
[2024-06-29] MEDS: ROPINIROLE 1MG TABLET 1 MG PO ×2 (09:04→20:07)
[2024-06-29] MEDS: AMIODARONE 200MG TABLET 400 MG PO ×2 (09:04→20:07)
[2024-06-29] MEDS: SPIRONOLACTONE 25MG TABLET 25 MG PO (09:04)
[2024-06-29] MEDS: ASPIRIN 81MG CHEWABLE TABLET 81 MG PO (09:04)
[2024-06-29] MEDS: FUROSEMIDE 40 MG TABLET PO (09:11)
[2024-06-29] MEDS: GABAPENTIN 800MG TABLET 800 MG PO ×2 (09:11→20:07)
--- NOTE | 2024-06-29 09:34 | EXP.PULM.PN ---
Subjective *Date: 06/29/24 *Time: 10:56 Interval history: No acute respiratory events overnight. Tolerating nasal cannula well. Denies any new respiratory complaints. Admits continued improvement in her symptoms. Pulmonology Exam Inpatient Vital signs and Labs for Last 24 Hours: Temp Pulse Resp BP Pulse Ox O2 Del Method O2 Flow Rate 98.1 F 73 18 120/64 92 L Nasal Cannula 2 06/29/24 08:00 06/29/24 08:00 06/29/24 08:00 06/29/24 08:00 06/29/24 08:00 06/29/24 08:00 06/29/24 08:00 FiO2 28 06/28/24 18:59 Laboratory Results - last 24 hr 06/27/24 11:05: MRSA (PCR) Negative 06/28/24 11:19: POC Glucose 129 H 06/28/24 17:05: POC Glucose 101 06/28/24 20:40: POC Glucose 195 H 06/29/24 05:30: POC Glucose 127 H 06/29/24 06:09: Sodium 137, Potassium 3.2 L, Chloride 104, Carbon Dioxide 28, Anion Gap 8.2, BUN 22 H, Creatinine 1.40 H, Estimated Creat Clear 39, Estimated GFR 37 L, Est GFR ( Amer) 44 L, Glucose 130 H, Calcium 8.1 L, Total Bilirubin 1.1, AST 35 D, ALT 16 D, Alkaline Phosphatase 71, Total Protein 5.3 L, Albumin 2.9 L, Globulin 2.4, Albumin/Globulin Ratio 1.2 I & O for Labs for Last 24 Hours: Intake & Output 06/26/24 06/27/24 06/28/24 06/29/24 23:59 23:59 23:59 23:59 Intake Total 805.345 / 340.456 1664 / 1989 430 / 430 Output Total 2400 / 2430 150 / 150 0 / 0 Balance -1594.655 / -3863.886 0243 / 1840 430 / 430 Weight 199 lb 15.983 oz 199 lb 15.983 oz 157 lb 6.4 oz Microbiology Reports for the Last 24 Hours: Microbiology 06/27/24 01:50 Blood Blood Culture - Preliminary NO GROWTH AFTER 48 HOURS 06/27/24 01:50 Blood Blood Culture - Preliminary NO GROWTH AFTER 48 HOURS Constitutional: Present moderate distress Head: Present normocephalic and atraumatic ENT: Present normal exam, normal oropharynx and mucous membranes moist Neck: Present normal inspection and full ROM Respiratory: Present able to speak in complete sentences; Absent prolonged expiratory phase, respiratory distress or wheezes Cardiac: Present S1/S2, Tachycardia and radial pulses present GI: Present soft and distention; Absent tenderness or guarding Rectal (female): Present deferred (female): Present deferred Skin: Present intact; Absent cyanosis or jaundice Neuro: Present alert, awake and oriented x 3 Extremities: Present normal inspection and edema; Absent clubbing or cyanosis Psychiatric: Present normal affect and cooperative Assessment and Plan *Assessment and plan (1) On mechanically assisted ventilation: Status: Acute Category: Medical Code(s): Z99.11 - Dependence on respirator [ventilator] status (2) Acute respiratory failure with hypoxia: Status: Acute Category: Medical Code(s): J96.01 - Acute respiratory failure with hypoxia (3) Pleural effusion, bilateral: Status: Acute Category: Medical Code(s): J90 - Pleural effusion, not elsewhere classified Plan Ms. Fuller is a 73-year-old female with reported of hypertension dyslipidemia diabetes mellitus COPD presented to the ER with worsening respiratory distress, and upon presentation to the ER patient was found to be cyanotic needing intubation and mechanical ventilatory support. CTA PE protocol upon admission evidence of pulmonary embolism but bilateral diffuse groundglass opacity with septal thickening and bilateral moderate pleural effusions concerning for volume overload. No dense consolidative/airspace changes noted. No significant emphysematous changes appreciated on the CT scan. Neutrophilic predominant leukocytosis improving. Complains of respiratory viral PCR panel negative. On admission was initiated on broad-spectrum antibiotics including vancomycin and cefepime. DuoNebs every 6 scheduled. Receiving diuretics. Extubated to nasal cannula, tolerating well. No significant smoking history. Secondhand smoke exposure. Denies any known history of asthma/allergies. She is also using oxygen supplementation at night at 2 L but denies any supplementations during the daytime. Echocardiogram EF at 25%. LV apical wall akinetic RVSP elevated. Interval update: No acute respiratory vents overnight. Patient admits continued improvement in her respiratory symptoms. Completed 3-day course of levofloxacin. Plan: -Continue oxygen supplementation to maintain O2 saturation goal of 90% and above, on 1 L this morning at rest saturating 94%. Weaned to room air. Will monitor. -Continue Anoro. Will follow as an outpatient basis with a PFT walk testing to further determine the need for possible pulmonary etiology warranting inhaler therapy. # Thank you for involving pulmonary in this patient care. Will continue to follow.
[2024-06-29] MEDS: humaLOG 100 UNITS/ML 10ML VIAL (SSI) SUBCUT ×2 (10:40→16:50)
--- NOTE | 2024-06-29 10:43 | HMH.SLDYSPHA ---
Speech & Language Evaluation Speech/Language Dysphagia Evaluation Start: 06/29/24 10:37 Freq: ONCE Status: Active Protocol: Document 06/29/24 10:37 MARRY (Rec: 06/29/24 10:43 MARRY Laptop) Dysphagia Assess/Goals/Plan Assessment Date of Evaluation: 06/29/24 Evaluation Type Initial Certification Assessment/Problems post-extubation protocol Does Patient Qualify for Service No Qualify/Failure Comment Based on clinical observations made during CSE, pt's mastication and manipulation of bolus and swallowing appear to be WFL at the bedside. No further skilled speech therapy services are warranted at this time. Recommendations PHYSICIAN CERTIFICATION: The specified therapy services are required, authorized, and reviewed every 30 days. Diet Recommendations Mechanical Soft Liquid Type Recommendations Normal/Thin SL Swallow Guidelines Alt bite w/sip thru meal, Standard Aspiration Prec. Dysphagia Swallow Precautions/Strategies Small Bites and Sips,Alternate Liquids/Solids Plan Pt/Guardian verbally ack understanding Yes of dx/prognosis/goals G -code Required No Education Instructions provided Discussed CSE results, diet recommendations, and standard aspiration precautions with pt /family, nursing, and care management all of which expressed understanding. 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 Family is at bedside and provides collateral and states that she was in her normal state of health today, went to alevism. Started having some mild shortness of breath this evening but went to bed normally. She then woke her family up stating that she had to go to the emergency department. Family stated it was very hard to get her out the door and into the car. Once in the car she had to passing out spells . They deny any recent complaints of her being sick. They denied any complaints of chest pain. They do state that she lost her approximately 1 month ago and has been very stressed since then. Upon arrival to the emergency department she was noted to be cyanotic, obtunded prompting endotracheal intubation. Workup notable for white blood cell count of 16, BNP of 8000 , COVID flu negative.. Chest x-ray notable for patchy bilateral airspace opacities somewhat more prominent on the right versus left. CT of the chest notable for moderate cardiomegaly with reflux of contrast into the IVC consistent with elevated right heart pressures. She was given Lasix in the emergency department as well as Levaquin for possible pneumonia and admitted to the hospital service Pt recently extubated. General Information General Current Food Consistancy NPO Dentition Edentulous Oxygen Status Room Air Patient Orientation Person,Place,Time,Situation Ability to Follow Directions Excellent Communication Ability No Impairment Dysphagia:Food Presentation Evaluation Food Type Mechanical Soft,Liquid,Pudding Dysphagia Evaluation Summary Pt seen sitting upright at bedside for CSE. Extensive oral care provided prior to administering trials. Pt A&Ox4 . Trials consisted of thin liquids (ice chips, spoonful, open cup/straw sip, and two consecutive sips from open cup /straw), pudding, and mechanical soft (nutrigrain bar.) Pt requested to skip puree trials and regular not trialed 2' edentulous status. No overt s/sxs of aspiration noted throughout assessment. Mechanical soft chopped/thin liquids recommended. Stroke Dysphagia Assessment PHYSICIAN CERTIFICATION: I certify the specified therapy services for Michelle Fuller are required, authorized, and reviewed every 30 days.
--- NOTE | 2024-06-29 11:38 | HMH.ITSTN ---
spoke to rn , stated patient lost iv , it will be after 1 before we could do the ct scan
--- NOTE | 2024-06-29 11:48 | EXP.CARD.PN ---
Subjective Subjective Date: 06/29/24 Time: 09:30 Interval history: No events overnight, up ambulating without symptoms. Cr improved to 1.4. Awaiting CCTA and LifeVest. Exam Data for Last 24 hours Vital signs and Labs for Last 24 Hours: Temp Pulse Resp BP Pulse Ox O2 Del Method O2 Flow Rate 97.9 F 69 20 131/61 88 L Room Air 1 06/29/24 11:28 06/29/24 11:28 06/29/24 11:28 06/29/24 11:28 06/29/24 11:28 06/29/24 11:28 06/29/24 11:00 FiO2 28 06/28/24 18:59 Laboratory Results - last 24 hr 06/27/24 11:05: MRSA (PCR) Negative 06/28/24 17:05: POC Glucose 101 06/28/24 20:40: POC Glucose 195 H 06/29/24 05:30: POC Glucose 127 H 06/29/24 06:09: Sodium 137, Potassium 3.2 L, Chloride 104, Carbon Dioxide 28, Anion Gap 8.2, BUN 22 H, Creatinine 1.40 H, Estimated Creat Clear 39, Estimated GFR 37 L, Est GFR ( Amer) 44 L, Glucose 130 H, Calcium 8.1 L, Total Bilirubin 1.1, AST 35 D, ALT 16 D, Alkaline Phosphatase 71, Total Protein 5.3 L, Albumin 2.9 L, Globulin 2.4, Albumin/Globulin Ratio 1.2 I & O for Last 24 hours: Intake & Output 06/26/24 06/27/24 06/28/24 06/29/24 23:59 23:59 23:59 23:59 Intake Total 805.345 / 326.132 0977 / 1990 480 / 480 Output Total 2400 / 2430 150 / 150 0 / 0 Balance -1594.655 / -7993.740 3678 / 1840 480 / 480 Weight 199 lb 15.983 oz 199 lb 15.983 oz 157 lb 6.4 oz Microbiology Reports for the Last 24 Hours: Microbiology 06/27/24 08:10 Sputum - Endotracheal Tube Aspirate Gram Stain - Final 06/27/24 08:10 Sputum - Endotracheal Tube Aspirate Sputum Culture - Final 06/27/24 01:50 Blood Blood Culture - Preliminary NO GROWTH AFTER 48 HOURS 06/27/24 01:50 Blood Blood Culture - Preliminary NO GROWTH AFTER 48 HOURS Constitutional Constitutional: no acute distress and cooperative *Routine HEENT Exam Eye: Present PERRL *Routine Respiratory Exam Respiratory: Present CTA bilaterally; Absent accessory muscle use, wheezes or crackles *Routine Cardiovascular Exam Cardiovascular: Present RRR, Normal S1 and Normal S2; Absent murmur, gallop or rubs *Routine Abdominal Exam Abdominal: Present soft; Absent tenderness *Routine Extremities Exam Extremities: Present pulses intact; Absent cyanosis or edema *Routine Skin Exam Skin: Present intact; Absent erythema or wounds *Routine Neurological Exam Neurological: Present alert and oriented X3 Routine Psychiatric Exam Psychiatric: Present cooperative Progress Note: A&P Assessment and plan (1) On mechanically assisted ventilation: Status: Acute (2) Acute respiratory failure with hypoxia: Status: Acute (3) Pleural effusion, bilateral: Status: Acute (4) HFrEF (heart failure with reduced ejection fraction): Status: Acute (5) Stress-induced cardiomyopathy: Status: Acute Assessment and Plan Assessment and Plan for All Diagnoses:: Acute Left Systolic Heart Failure - presumed stress cardiomyopathy with sudden weakening of LV wall following the of her - continue diuresis and O2 support per Pulm - Start Toprol XL, Entresto, Aldactone, Jardiance post extubation - Discussed LHC with Dr. Patel who recommends CCTA - MRI later as outpatient - (myocarditis vs stress cardiomyopathy) - Pt agreeable to LifeVest - pending Acute Myocardial Injury - mild trop elevation in setting of presumed stress cardiomyopathy - EKG unchanged from 1 year ago - normal stress test last year - will check CCTA for evidence of ischemia A-fib RVR - noted on telemetry 06/27 - can transition from IV to PO Amio - CHADS-VASC = 5, start renally adjusted Xarelto (can probably transition to full dose at discharge) Htn - 120-170 here (weaning sedation leading to anxiety), cont to monitor/dose adjust Propafol - start GDMT for HF IDDM - well controlled with A1C 6.6 - glucose control per Hospitalist - will add SGLT-2 for HF later EDINSON - Cr trending down/stable *Pt is stable and tolerating GDMT. Likely home following CCTA and LifeVest today.
[2024-06-29 12:33] LABS: POC Glucose,Bedside 214 (70-110)
[2024-06-29] MEDS: 0.9 % SODIUM CHLORIDE 1000ML 500 ML IV (12:58)
[2024-06-29] MEDS: METOPROLOL TARTRATE 50MG TABLET *IVABRADINE+METOPROLOL REGIMINE 75 MG PO (13:21)
[2024-06-29] MEDS: IVABRADINE HCL 7.5MG TABLET *IVABRADINE+METOPROLOL REGIMINE 15 MG PO (13:22)
--- NOTE | 2024-06-29 14:16 | PC.NURSE ---
pt taken down to CT for CTA by outpatient surgery RN.
[2024-06-29] MEDS: IOPAMIDOL-370 (76%);100ML BOTTLE 85 ML IV (14:47)
[2024-06-29] MEDS: 0.9 % SODIUM CHLORIDE 50 ML VIAL IV (14:47)
[2024-06-29] MEDS: SODIUM CHLORIDE 0.9% 10ML SYR (RAD ONLY) 10 ML IV (14:47)
[2024-06-29 16:40] LABS: POC Glucose,Bedside 172 (70-110)
[2024-06-29] MEDS: RIVAROXABAN 15MG TABLET 15 MG PO (16:51)
--- NOTE | 2024-06-29 19:18 | PC.NURSE ---
Alert and oriented. Patient has had no complaints. Small nose bleed, humidification used for NC, 1L NC. Pt has rested throughout the day. no complaints of pain. CTA completed this shift. Call light in reach.
[2024-06-29] MEDS: TRAZODONE 50MG TABLET 100 MG PO (20:07)
[2024-06-29] MEDS: ATORVASTATIN 10MG TABLET 10 MG PO (20:07)
--- NOTE | 2024-06-29 22:28 | P.PN_ITS ---
Subjective *Date: 06/29/24 *Time: 22:28 Interval history: Patient is doing well and eager to get CCTA done. No chest pain, SOB. Comfortable and in better spirits today. Exam Data for Last 24 hours Vital signs and Labs for Last 24 Hours: Temp Pulse Resp BP Pulse Ox O2 Del Method O2 Flow Rate 98.1 F 55 L 17 122/57 L 95 Nasal Cannula 1 06/29/24 19:42 06/29/24 19:42 06/29/24 19:42 06/29/24 19:42 06/29/24 19:42 06/29/24 21:00 06/29/24 21:00 FiO2 28 06/28/24 18:59 Laboratory Results - last 24 hr 06/29/24 05:30: POC Glucose 127 H 06/29/24 06:09: Sodium 137, Potassium 3.2 L, Chloride 104, Carbon Dioxide 28, Anion Gap 8.2, BUN 22 H, Creatinine 1.40 H, Estimated Creat Clear 39, Estimated GFR 37 L, Est GFR ( Amer) 44 L, Glucose 130 H, Calcium 8.1 L, Total Bilirubin 1.1, AST 35 D, ALT 16 D, Alkaline Phosphatase 71, Total Protein 5.3 L, Albumin 2.9 L, Globulin 2.4, Albumin/Globulin Ratio 1.2 06/29/24 10:35: POC Glucose 214 H 06/29/24 16:31: POC Glucose 172 H I & O for Last 24 hours: Intake & Output 06/26/24 06/27/24 06/28/24 06/29/24 23:59 23:59 23:59 23:59 Intake Total 805.345 / 964.734 9090 / 1990 780 / 780 Output Total 2400 / 2430 150 / 150 0 / 0 Balance -1594.655 / -5597.777 6039 / 1840 780 / 780 Weight 90.718 kg 90.718 kg 71.395 kg Microbiology Reports for the Last 24 Hours: Microbiology 06/27/24 08:10 Sputum - Endotracheal Tube Aspirate Gram Stain - Final 06/27/24 08:10 Sputum - Endotracheal Tube Aspirate Sputum Culture - Final 06/27/24 01:50 Blood Blood Culture - Preliminary NO GROWTH AFTER 48 HOURS 06/27/24 01:50 Blood Blood Culture - Preliminary NO GROWTH AFTER 48 HOURS Constitutional Constitutional: no acute distress *Routine HEENT Exam Head: Present normocephalic Eye: Present EOMI and PERRL ENT: Present mucous membranes moist *Routine Neck Exam Neck: Present supple; Absent lymphadenopathy *Routine Respiratory Exam Respiratory: Present CTA bilaterally *Routine Cardiovascular Exam Cardiovascular: Present RRR *Routine Abdominal Exam Abdominal: Present soft and normoactive bowel sounds; Absent tenderness *Routine Extremities Exam Extremities: Absent cyanosis, clubbing or edema *Routine Skin Exam Skin: Present warm; Absent rash *Routine Neurological Exam Neurological: Present alert and oriented X3 Assessment and Plan *Assessment and plan (1) Pulmonary edema: Status: Acute Qualifiers: Chronicity: acute Qualified Code(s): J81.0 - Acute pulmonary edema Category: Medical Code(s): J81.1 - Chronic pulmonary edema (2) Acute respiratory failure with hypoxia: Status: Acute Category: Medical Code(s): J96.01 - Acute respiratory failure with hypoxia (3) Severe sepsis: Status: Acute Category: Medical Code(s): A41.9 - Sepsis, unspecified organism; R65.20 - Severe sepsis without septic shock (4) Hypothyroid: Status: Chronic Qualifiers: Hypothyroidism type: acquired Qualified Code(s): E03.9 - Hypothyroidism, unspecified Category: Medical Code(s): E03.9 - Hypothyroidism, unspecified (5) COPD with exacerbation: Status: Acute Category: Medical Code(s): J44.1 - Chronic obstructive pulmonary disease with (acute) exacerbation (6) Diabetes mellitus, type 2: Status: Chronic Qualifiers: Diabetes mellitus senior living insulin use: without senior living use Diabetes mellitus complication status: without complication Qualified Code(s): E11.9 - T ype 2 diabetes mellitus without complications Category: Medical Code(s): E11.9 - Type 2 diabetes mellitus without complications (7) Hypertension: Status: Acute Qualifiers: Hypertension type: primary hypertension Qualified Code(s): I10 - Essential (primary) hypertension Category: Medical Code(s): I10 - Essential (primary) hypertension (8) Hyperlipidemia: Status: Chronic Qualifiers: Hyperlipidemia type: mixed hyperlipidemia Qualified Code(s): E78.2 - Mixed hyperlipidemia Category: Medical Code(s): E78.5 - Hyperlipidemia, unspecified Plan #Acute respiratory failure with hypoxia #Severe sepsis, resolved #Pneumonia, community-acquired Likely multifactorial given pneumonia and right-sided heart failure requiring intubation. Extubated 06/27/24. Likely element of Takotsubo's cardiomyopathy given recent stressor of losing her ECHO reveals LVEF 25%, severe distal and apical akinetic adams. RVSP 35mmHg. Patient will need Lifevist on discharge. Consulted cardiology, CCTA today. Pending report. Also started GDMT with Farxiga, Entresto, Aldactone, metoprolol succinate. Tolerating well. Started PO lasix 40mg, IV lasix 40mg BID discontinued after overresponse with diuresis and EDINSON. Consulted pulmonology, started Levaquin and discontinue Vancomycin, cefepime. WBC improving to 13.4 Continue bronchodilators Blood cultures pending Sputum culture pending #EDINSON - Cr improved to 1.4 from 1.6 after switching to PO lasix from IV. #Hypothyroidism Checking TSH and free T4 now Continue levothyroxine #T2DM Q6 sliding scale insulin A1c pending #Hypertension #Hyperlipidemia Continue home medications as appropriate, patient has been started on GDMT as above.
[2024-06-30] VITALS (8 sets, daily range): BP systolic 102–130; BP diastolic 48–56; PULSE 50–98; RESP 16–18; TEMP 36.4–36.8; O2SAT 92–98; BMI 26.7
[2024-06-30] MEDS: IPRATROPIUM/ALBUTEROL 3 ML NEB IH ×3 (00:29→11:01)
[2024-06-30] MEDS: LEVOFLOXACIN/D5W 750 MG/150 ML 750 MG/150 ML PIGGYBACK 100 MG IV (03:56)
[2024-06-30] MEDS: diphenhydrAMINE 50MG/ML VIAL 12.5 MG IV (04:25)
[2024-06-30 04:36] LABS: POC Glucose,Bedside 105 (70-110)
[2024-06-30] MEDS: UMECLIDINIUM/VILANTEROL 62.5/25MCG INHALER 1 PUFF IH (06:03)
[2024-06-30] MEDS: INSULIN GLARGINE 100 UNITS/ML 3ML FLEXPEN 30 UNIT SUBCUT (06:17)
[2024-06-30] MEDS: LEVOTHYROXINE 50MCG (0.05MG) TAB 50 MCG PO (06:17)
[2024-06-30 07:21] LABS: Chloride 105 mmol/L (98-107)
[2024-06-30 07:22] LABS: Albumin Level 3.3 g/dl (3.5-5.0); Potassium 3.5 mmoL/L (3.5-5.1); Sodium 139 mmol/L (136-145)
[2024-06-30 07:24] LABS: Alanine Aminotransferase 18 U/L (12-78); Anion Gap 9.5 mEq/L (5-15); Aspartate Amino Transferase 32 U/L (14-36); Blood Urea Nitrogen 23 mg/dl (7-17); Carbon Dioxide 28 mmol/L (22.0-30.0); Creatinine Clearance Estimated 42 mL/min (50-200); Estimated Glomerular Filt Rate 40 ml/min (>60); GFR (African American) 48 ML/MIN (>60)
[2024-06-30 07:25] LABS: Albumin/Globulin Ratio 1.1 (1.1-1.8); Alkaline Phosphatase 73 U/L (38-126); Bilirubin,Total 1.1 mg/dl (0.2-1.3); Calcium 8.7 mg/dl (8.4-10.2); Globulin 2.9 g/dL (1.3-3.2); Glucose 129 mg/dl (74-100); Total Protein,Serum 6.2 g/dl (6.3-8.2)
[2024-06-30 08:00] LABS: Basophils # 0.1 K/mm3 (0-0.2); Basophils % 1.2 % (0.1-2.0); Eosinophils # 0.3 K/mm3 (0.0-0.4); Eosinophils % 2.8 % (0.1-12.0); Hematocrit 47.6 % (37.0-47.0); Hemoglobin 15.9 g/dL (12.2-16.2); Lymphocytes # 2.3 K/mm3 (0.7-4.5); Mean Corpuscular HGB Conc 33.4 g/dL (31.8-35.4); Mean Corpuscular Hemoglobin 33.3 pg (27.0-31.2); Mean Corpuscular Volume 99.9 fl (81-99); Mean Platelet Volume 9.3 fl (7.4-10.4); Monocytes # 0.5 K/mm3 (0.1-1.0); Monocytes % 5.4 % (1.7-9.3); Neutrophils % 65.7 % (37.0-80.0); Platelet Count 327 K/mm3 (142-424); Red Blood Count 4.77 M/mm3 (4.20-5.40); Red Cell Distribution Width 14.4 % (11.5-17.5); White Blood Count 9.2 K/mm3 (4.8-10.8)
[2024-06-30] MEDS: FUROSEMIDE 40 MG TABLET PO (08:38)
[2024-06-30] MEDS: ROPINIROLE 1MG TABLET 1 MG PO (08:38)
[2024-06-30] MEDS: ASPIRIN 81MG CHEWABLE TABLET 81 MG PO (08:38)
[2024-06-30] MEDS: PARoxetine 20MG TABLET 30 MG PO (08:38)
[2024-06-30] MEDS: SACUBITRIL/VALSARTAN 24-26MG TABLET 1 EACH PO (08:38)
[2024-06-30] MEDS: AMIODARONE 200MG TABLET 400 MG PO (08:38)
[2024-06-30] MEDS: EMPAGLIFLOZIN 10MG TABLET 10 MG PO (08:38)
[2024-06-30] MEDS: SPIRONOLACTONE 25MG TABLET 25 MG PO (08:38)
[2024-06-30] MEDS: METOPROLOL SUCCINATE XL 25MG TABLET 25 MG PO (08:38)
[2024-06-30] MEDS: GABAPENTIN 800MG TABLET 800 MG PO (08:42)
[2024-06-30 10:23] LABS: POC Glucose,Bedside 106 (70-110)
--- NOTE | 2024-06-30 11:30 | XR_ITS ---
PROCEDURE INFORMATION: Exam: XR Chest Exam date and time: 06/30/2024 12:13 PM Age: 73 years old Clinical indication: Cough; Additional info: Chest soreness, new productive cough TECHNIQUE: Imaging protocol: Radiologic exam of the chest. Views: 1 view. Portable upright chest x-ray. COMPARISON: CR XR CHEST PORTABLE 06/28/2024 8:52 AM FINDINGS: Lungs: Perihilar interstitial opacities and peribronchial thickening have worsened since 06/28/2024. No confluent airspace consolidation. Pleural spaces: No pleural effusion. No pneumothorax. Heart/Mediastinum: No abnormalities. No cardiomegaly. No pulmonary vascular congestion. Bones/joints: No fractures or bone lesions. IMPRESSION: Interstitial opacities and peribronchial thickening have worsened since 06/28/2024. Consider viral or atypical pneumonia or pulmonary edema.
[2024-06-30 12:40] LABS: POC Glucose,Bedside 143 (70-110)
[2024-06-30] MEDS: LIDOCAINE 5% TRANSDERMAL PATCH 1 EACH TP (12:45)
--- NOTE | 2024-06-30 13:23 | ECG_ITS ---
APPROVED REPORT Exam: Resting ECG HR:56 bpm ECG Measurements Heart Rate 56 AXES LA 208 P 48 QRSd 91 QRS 10 QT 442 T 173 QTc 434 Conclusion SINUS BRADYCARDIA WITH OCCASIONAL SUPRAVENTRICULAR PREMATURE COMPLEXES LOW QRS VOLTAGE IN PRECORDIAL LEADS [QRS DEFLECTION < 1.0 mV IN CHEST LEADS] ANTEROSEPTAL MYOCARDIAL INFARCTION , OF INDETERMINATE AGE [40+ ms Q WAVE IN V1-V4] ABNORMAL ECG UNCONFIRMED REPORT Electronically signed by : Farrukh Fragoso MD 07/01/2024 09:04:23
--- NOTE | 2024-06-30 13:42 | EXP.CARD.PN ---
Subjective Subjective Date: 06/30/24 Time: 09:30 Interval history: Feeling fatigued this morning but no CV events or symptoms. CCTA showed nonobstructive dz. LifeVest due to be placed after lunch. Exam Data for Last 24 hours Vital signs and Labs for Last 24 Hours: Temp Pulse Resp BP Pulse Ox O2 Del Method O2 Flow Rate 98.1 F 98 H 18 130/56 L 98 Nasal Cannula 2 06/30/24 12:00 06/30/24 12:00 06/30/24 12:00 06/30/24 12:00 06/30/24 12:00 06/30/24 11:01 06/30/24 11:01 FiO2 28 06/28/24 18:59 Laboratory Results - last 24 hr 06/29/24 16:31: POC Glucose 172 H 06/29/24 23:16: POC Glucose 106 06/30/24 04:28: POC Glucose 105 06/30/24 06:39: WBC 9.2 D, RBC 4.77, Hgb 15.9, Hct 47.6 H, MCV 99.9 H, MCH 33.3 H, MCHC 33.4, RDW 14.4, Plt Count 327, MPV 9.3, Neut % (Auto) 65.7, Lymph % (Auto) 25.0, Hickman % (Auto) 5.4, Eos % (Auto) 2.8, Baso % (Auto) 1.2, Neut # (Auto) 6.0, Lymph # (Auto) 2.3, Hickman # (Auto) 0.5, Eos # (Auto) 0.3, Baso # (Auto) 0.1, Sodium 139, Potassium 3.5, Chloride 105, Carbon Dioxide 28, Anion Gap 9.5, BUN 23 H, Creatinine 1.30 H, Estimated Creat Clear 42, Estimated GFR 40 L, Est GFR ( Amer) 48 L, Glucose 129 H, Calcium 8.7, Total Bilirubin 1.1, AST 32, ALT 18, Alkaline Phosphatase 73, Total Protein 6.2 L, Albumin 3.3 L D, Globulin 2.9, Albumin/Globulin Ratio 1.1 06/30/24 11:58: POC Glucose 143 H I & O for Last 24 hours: Intake & Output 06/27/24 06/28/24 06/29/24 06/30/24 23:59 23:59 23:59 23:59 Intake Total 805.345 / 552.356 2982 / 1990 780 / 780 840 / 840 Output Total 2400 / 2430 150 / 150 0 / 0 0 / 0 Balance -1594.655 / -2785.564 2809 / 1840 780 / 780 840 / 840 Weight 199 lb 15.983 oz 199 lb 15.983 oz 157 lb 6.4 oz 156 lb 11.2 oz Microbiology Reports for the Last 24 Hours: Microbiology 06/27/24 08:10 Sputum - Endotracheal Tube Aspirate Gram Stain - Final 06/27/24 08:10 Sputum - Endotracheal Tube Aspirate Sputum Culture - Final Constitutional Constitutional: no acute distress, obese and cooperative *Routine HEENT Exam Eye: Present PERRL *Routine Respiratory Exam Respiratory: Present CTA bilaterally; Absent accessory muscle use, wheezes or crackles *Routine Cardiovascular Exam Cardiovascular: Present RRR, Normal S1 and Normal S2; Absent murmur, gallop or rubs *Routine Abdominal Exam Abdominal: Present soft; Absent tenderness *Routine Extremities Exam Extremities: Present pulses intact; Absent cyanosis or edema *Routine Skin Exam Skin: Present intact; Absent erythema or wounds *Routine Neurological Exam Neurological: Present alert and oriented X3 Routine Psychiatric Exam Psychiatric: Present cooperative Progress Note: A&P Assessment and plan (1) Stress-induced cardiomyopathy: Status: Acute (2) HFrEF (heart failure with reduced ejection fraction): Status: Acute (3) Pulmonary edema: Status: Acute (4) Acute respiratory failure with hypoxia: Status: Acute (5) Severe sepsis: Status: Acute (6) Hypothyroid: Status: Chronic (7) COPD with exacerbation: Status: Acute (8) Diabetes mellitus, type 2: Status: Chronic (9) Hypertension: Status: Acute (10) Hyperlipidemia: Status: Chronic Assessment and Plan Assessment and Plan for All Diagnoses:: Acute Left Systolic Heart Failure - Stress Cardiomyopathy - sudden weakening of LV wall following the of her - cont Toprol XL, Entresto, Aldactone, Jardiance - CCTA - nonobstructive dz - MRI later as outpatient - (myocarditis vs stress cardiomyopathy) - Pt agreeable to LifeVest - pending today Acute Myocardial Injury - mild trop elevation in setting of stress cardiomyopathy - EKG unchanged from 1 year ago - normal stress test last year - CCTA here - nonobstructive dz A-fib RVR - noted on telemetry 06/27 - can transition from IV to PO Amio - CHADS-VASC = 5, start renally adjusted Xarelto due to CrCl 41 Htn - stable - cont GDMT for HF IDDM - well controlled with A1C 6.6 - glucose control per Hospitalist - will add SGLT-2 for HF later EDINSON - Cr trending down/stable *Pt is stable and tolerating GDMT. CV stable to DC home with LifeVest. Office visit with us in 1 week.
--- NOTE | 2024-06-30 15:48 | P.DS_ITS ---
General Admission date:: 06/27/24 HPI HPI HPI: This is a 73-year-old female with past medical history of HTN, HLD, T2DM, COPD, hypothyroidism who presents emergency department today in respiratory distress. Family is at bedside and provides collateral and states that she was in her normal state of health today, went to [facility]abapt[facility]. Started having some mild shortness of breath this evening but went to bed normally. She then woke her family up stating that she had to go to the emergency department. Family stated it was very hard to get her out the door and into the car. Once in the car she had to passing out spells . They deny any recent complaints of her being sick. They denied any complaints of chest pain. They do state that she lost her approximately 1 month ago and has been very stressed since then. Upon arrival to the emergency department she was noted to be cyanotic, obtunded prompting endotracheal intubation. Workup notable for white blood cell count of 16, BNP of 8000, COVID flu negative.. Chest x-ray notable for patchy bilateral airspace opacities somewhat more prominent on the right versus left. CT of the chest notable for moderate cardiomegaly with reflux of contrast into the IVC consistent with elevated right heart pressures. She was given Lasix in the emergency department as well as Levaquin for possible pneumonia and admitted to the hospital service Hospital Course Hospital Course Hospital Course: #Acute respiratory failure with hypoxia #Severe sepsis, resolved #Pneumonia, community-acquired Likely multifactorial given pneumonia and right-sided heart failure requiring intubation. Extubated 06/27/24. ECHO reveals LVEF 25%, severe distal and apical akinetic adams. RVSP 35mmHg Likely element of Takotsubo's cardiomyopathy given recent stressor of losing her Consulted cardiology, CCTA - nonobstructing CAD. Started GDMT with Farxiga, Entresto, Aldactone, metoprolol succinate. Tolerating well. Started PO lasix 40mg. Lifevest fitted. Consulted pulmonology, started Levaquin and discontinue Vancomycin, cefepime. Discharged with medications as above, and levaquin for 2 more days. Will follow-up with cardiology within 1 week. #EDINSON - Cr improved to 1.3 from 1.6. In setting of cardiorenal third spacing and aggressive diuresis. #Hypothyroidism TSH, t4 normal. Continue levothyroxine #T2DM A1c 6.6 Continue Soliqua 40 units, can speak to PCP about weaning insulin as 6.6 at goal. #Hypertension #Hyperlipidemia GDMT as above. Exam Data for Last 24 hours Vital signs and Labs for Last 24 Hours: Temp Pulse Resp BP Pulse Ox O2 Del Method O2 Flow Rate 98.1 F 98 H 18 130/56 L 98 Nasal Cannula 1 06/30/24 12:00 06/30/24 12:00 06/30/24 12:00 06/30/24 12:00 06/30/24 12:00 06/30/24 15:00 06/30/24 15:00 FiO2 28 06/28/24 18:59 Laboratory Results - last 24 hr 06/29/24 16:31: POC Glucose 172 H 06/29/24 23:16: POC Glucose 106 06/30/24 04:28: POC Glucose 105 06/30/24 06:39: WBC 9.2 D, RBC 4.77, Hgb 15.9, Hct 47.6 H, MCV 99.9 H, MCH 33.3 H, MCHC 33.4, RDW 14.4, Plt Count 327, MPV 9.3, Neut % (Auto) 65.7, Lymph % (Auto) 25.0, [place] % (Auto) 5.4, Eos % (Auto) 2.8, Baso % (Auto) 1.2, Neut # (Auto) 6.0, Lymph # (Auto) 2.3, [place] # (Auto) 0.5, Eos # (Auto) 0.3, Baso # (Auto) 0.1, Sodium 139, Potassium 3.5, Chloride 105, Carbon Dioxide 28, Anion Gap 9.5, BUN 23 H, Creatinine 1.30 H, Estimated Creat Clear 42, Estimated GFR 40 L, Est GFR ( Amer) 48 L, Glucose 129 H, Calcium 8.7, Total Bilirubin 1.1, AST 32, ALT 18, Alkaline Phosphatase 73, Total Protein 6.2 L, Albumin 3.3 L D, Globulin 2.9, Albumin/Globulin Ratio 1.1 06/30/24 11:58: POC Glucose 143 H I & O for Last 24 hours: Intake & Output 06/27/24 06/28/24 06/29/24 06/30/24 23:59 23:59 23:59 23:59 Intake Total 805.345 / 519.434 5798 / 1990 780 / 840 / 840 Output Total 2400 / 2430 150 / 150 0 / 0 0 / 0 Balance -1594.655 / -0098.496 3947 / 1840 / 840 / 840 Weight 90.718 kg 90.718 kg 71.395 kg 71.078 kg Constitutional Constitutional: no acute distress, obese and cooperative *Routine HEENT Exam Eye: Present PERRL *Routine Respiratory Exam Respiratory: Present CTA bilaterally; Absent accessory muscle use, wheezes or crackles *Routine Cardiovascular Exam Cardiovascular: Present RRR, Normal S1 and Normal S2; Absent murmur, gallop or rubs *Routine Abdominal Exam Abdominal: Present soft; Absent tenderness *Routine Extremities Exam Extremities: Present pulses intact; Absent cyanosis or edema *Routine Skin Exam Skin: Present intact; Absent erythema or wounds *Routine Neurological Exam Neurological: Present alert and oriented X3 Routine Psychiatric Exam Psychiatric: Present cooperative Results Data Completed and Pending Labs on day of discharge: Labs from last 24 hours 06/30/24 06/30/24 06/30/24 11:58 06:39 04:28 WBC 9.2 D RBC 4.77 Hgb 15.9 Hct 47.6 H MCV 99.9 H MCH 33.3 H MCHC 33.4 RDW 14.4 Plt Count 327 MPV 9.3 Neut % (Auto) 65.7 Lymph % (Auto) 25.0 Sweet[place] % (Auto) 5.4 Eos % (Auto) 2.8 Baso % (Auto) 1.2 Neut # (Auto) 6.0 Lymph # (Auto) 2.3 Sweet[place] # (Auto) 0.5 Eos # (Auto) 0.3 Baso # (Auto) 0.1 Sodium 139 Potassium 3.5 Chloride 105 Carbon Dioxide 28 Anion Gap 9.5 BUN 23 H Creatinine 1.30 H Estimated Creat Clear 42 Estimated GFR 40 L Est GFR ( Amer) 48 L Glucose 129 H POC Glucose 143 H 105 Calcium 8.7 Total Bilirubin 1.1 AST 32 ALT 18 Alkaline Phosphatase 73 Total Protein 6.2 L Albumin 3.3 L D Globulin 2.9 Albumin/Globulin Ratio 1.1 06/29/24 06/29/24 23:16 16:31 WBC RBC Hgb Hct MCV MCH MCHC RDW Plt Count MPV Neut % (Auto) Lymph % (Auto) Sweet[place] % (Auto) Eos % (Auto) Baso % (Auto) Neut # (Auto) Lymph # (Auto) [place] # (Auto) Eos # (Auto) Baso # (Auto) Sodium Potassium Chloride Carbon Dioxide Anion Gap BUN Creatinine Estimated Creat Clear Estimated GFR Est GFR ( Amer) Glucose POC Glucose 106 172 H Calcium Total Bilirubin AST ALT Alkaline Phosphatase Total Protein Albumin Globulin Albumin/Globulin Ratio Preliminary micro results at discharge 06/27/24 01:50 Blood Culture - Preliminary Blood NO GROWTH AFTER 48 HOURS 06/27/24 01:50 Blood Culture - Preliminary Blood NO GROWTH AFTER 48 HOURS DS: Diagnosis Discharge Diagnosis (1) Stress-induced cardiomyopathy: Status: Acute Code(s): I51.81 - Takotsubo syndrome (2) HFrEF (heart failure with reduced ejection fraction): Status: Acute Code(s): I50.20 - Unspecified systolic (congestive) heart failure (3) Pulmonary edema: Status: Acute Code(s): J81.1 - Chronic pulmonary edema Qualifiers: Chronicity: acute Qualified Code(s): J81.0 - Acute pulmonary edema (4) Acute respiratory failure with hypoxia: Status: Acute Code(s): J96.01 - Acute respiratory failure with hypoxia (5) Severe sepsis: Status: Acute Code(s): A41.9 - Sepsis, unspecified organism; R65.20 - Severe sepsis without septic shock (6) Hypothyroid: Status: Chronic Code(s): E03.9 - Hypothyroidism, unspecified Qualifiers: Hypothyroidism type: acquired Qualified Code(s): E03.9 - Hypothyroidism, unspecified (7) COPD with exacerbation: Status: Acute Code(s): J44.1 - Chronic obstructive pulmonary disease with (acute) exacerbation (8) Diabetes mellitus, type 2: Status: Chronic Code(s): E11.9 - Type 2 diabetes mellitus without complications Qualifiers: Diabetes mellitus complication status: without complication 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Recorded ?Confirmed ?Type ropinirole 1 mg tablet 1 mg PO BID 02/24/18 06/27/24 History aspirin 81 mg chewable tablet 81 mg PO DAILY 07/19/18 06/27/24 History atorvastatin 10 mg tablet 10 mg PO HS 02/19/23 06/27/24 History levothyroxine 50 mcg tablet 50 mcg PO DAILY 02/19/23 06/27/24 History gabapentin 800 mg tablet 800 mg PO TIDP PRN neuropathic pain 07/10/23 06/27/24 History insulin glargine 100 40 unit SQ DAILY 07/10/23 06/27/24 History unit-lixisenatide 33 mcg/mL subcutaneous pen (Soliqua 100/33) paroxetine HCl 30 mg tablet 30 mg PO DAILY 01/18/24 06/27/24 History lisinopril 10 mg tablet 10 mg PO DAILY 06/27/24 06/27/24 History meloxicam 15 mg tablet 15 mg PO DAILY 06/27/24 06/27/24 History trazodone 100 mg tablet 100 mg PO HS 06/27/24 06/27/24 History amiodarone 200 mg tablet 400 mg (2 x 200 mg) PO BID 30 days 06/30/24 Rx #120 tabs empagliflozin 10 mg tablet 10 mg PO DAILY 30 days #30 tabs 06/30/24 Rx (Jardiance) furosemide 40 mg tablet 40 mg PO DAILY 30 days #30 tabs 06/30/24 Rx levofloxacin 750 mg tablet 750 mg PO DAILY 2 days #2 tabs 06/30/24 Rx metoprolol succinate 25 mg 25 mg PO DAILY 30 days #30 tabs 06/30/24 Rx tablet,extended release 24 hr polyethylene glycol 3350 17 17 g PO DAILY #510 grams 06/30/24 Rx gram/dose oral powder (Miralax) rivaroxaban 15 mg tablet (Xarelto) 15 mg PO QPMWITHMEAL 30 days #30 06/30/24 Rx tabs sacubitril 24 mg-valsartan 26 mg 1 tab PO BID 30 days #60 tabs 06/30/24 Rx tablet (Entresto) spironolactone 25 mg tablet 25 mg PO DAILY 30 days #30 tabs 06/30/24 Rx glycopyrrolate 9 mcg-formoterol 2 puff inhalation BID 90 days 07/04/24 Rx 4.8 mcg HFA aerosol inhaler #10.7 grams (Bevespi Aerosphere) New Prescriptions to Start Prescriptions: amiodarone Gisella,Delon empagliflozin [Jardiance] Gisella,Delon furosemide Gisella,Delon levofloxacin Gisella,Delon metoprolol succinate Gisella,Delon polyethylene glycol 3350 [Miralax] Gisella,Delon rivaroxaban [Xarelto] Gisella,Delon sacubitril-valsartan [Entresto] Gisella,Delon spironolactone Gisella,Delon Allergies Allergy/AdvReac Type Severity Reaction Status Date / Time Penicillins [PENICILLINS] Allergy Unknown I-HIVES Verified 04/21/24 10:18 promethazine [PROMETHAZINE] Allergy Unknown MAKES Verified 04/21/24 10:18 CRAZY EXACERBATES RLS Discharge Plan Disposition Patient Disposition: Home, Self-Care Condition: Fair Discharge Order Discharge Orders: Discharge Order (Routine); Ordered 06/30/24 Ordered By: Delon Obando Follow up Plan Follow up with: Stas Sher MD [Primary Care Provider] - Enter time for follow up (PLEASE CALL TOMORROW ThursdayJuly TO SCHEDULE YOUR HOSPITAL FOLLOW UP APPOINTMENT! (:) Keron Rodriguez PA [Physician Log Grader] - 07/11/24 1:30 pm () Prescriptions/Medication Reconciliation: New furosemide 40 mg Tablet 40 mg PO DAILY 30 Days Qty: 30 0RF amiodarone 200 mg Tablet 400 mg PO BID 30 Days Qty: 120 0RF spironolactone 25 mg Tablet 25 mg PO DAILY 30 Days Qty: 30 0RF metoprolol succinate 25 mg Tablet Extended Release 24 Hr 25 mg PO DAILY 30 Days Qty: 30 0RF Xarelto 15 mg Tablet 15 mg PO QPMWITHMEAL 30 Days Qty: 30 0RF Jardiance 10 mg Tablet 10 mg PO DAILY 30 Days Qty: 30 0RF Entresto 24-26 mg Tablet 1 tab PO BID 30 Days Qty: 60 0RF levofloxacin 750 mg tablet 750 mg PO DAILY 2 Days Qty: 2 0RF polyethylene glycol 3350 [Miralax] 17 gram/dose powder 17 g PO DAILY Qty: 510 0RF Continued ropinirole 1 mg tablet 1 mg PO BID atorvastatin 10 mg tablet 10 mg PO HS levothyroxine 50 mcg tablet 50 mcg PO DAILY Patient Comments: TAKE 1 TABLET BY MOUTH ONCE DAILY IN THE MORNING ON AN EMPTY STOMACH gabapentin 800 mg tablet 800 mg PO TIDP PRN (Reason: neuropathic pain) Soliqua 100/33 100 unit-33 mcg/mL insulin pen 40 unit SQ DAILY paroxetine HCl 30 mg tablet 30 mg PO DAILY aspirin 81 MG tablet,chewable 81 mg PO DAILY meloxicam 15 mg tablet 15 mg PO DAILY trazodone 100 mg tablet 100 mg PO HS lisinopril 10 mg tablet 10 mg PO DAILY Discontinued carvedilol [Coreg] 6.25 mg tablet 6.25 mg PO BID Qty: 180 3RF Rx Instructions: must administer with a meal/food No Action Bevespi Aerosphere 9-4.8 mcg HFA aerosol inhaler 2 puff inhalation BID 90 Days Qty: 10.7 3RF Problem Reconciliation Problems Reviewed?: Yes Patient Discharge Instructions ACTIVITY: Continue current activity DIET: cardiac Patient Instructions: DI for Heart Failure, DI for Pneumonia -- Adult, DI for Sepsis -- Adult, DI for Respiratory Failure Print Language: Marshallese Providers Primary Care Provider: Stas Sher Admit Provider: Mario Alberto Ware Attending Provider: Mario Alberto Ware
--- NOTE | 2024-07-01 12:55 | CARE MANAGER ---
Received a PA needed request. Completed auth for anoro ellipta inhaler online. Called Dr. Muhammad's office and they will work on f/u appt as one was not scheduled at discharge. Also, patient should have been given her inhaler that was used here upon discharge, but unable to reach patient via phone to check. Left with call back information.
== END 2024-06-30 16:54 | disposition home or self-care (01) | DRG 871 ==
LOC: ER 03:49 → ICU 04:01 → 2ND 06:36
PROVIDERS: Internal Medicine Pulmonary Disease; Nurse Practitioner Acute Care; Student in an Organized Health Care Education/Training Program; Admitting Provider Internal Medicine Adolescent Medicine; Emergency Provider Emergency Medicine; PCP Family Medicine; Visit Provider Internal Medicine Adolescent Medicine
DX: A41.9 Sepsis, unspecified organism (principal); I50.21 Acute systolic (congestive) heart failure; J18.9 Pneumonia, unspecified organism; J96.01 Acute respiratory failure with hypoxia; J44.1 Chronic obstructive pulmonary disease with (acute) exacerbation; I50.20 Unspecified systolic (congestive) heart failure; I51.81 Takotsubo syndrome; N17.9 Acute kidney failure, unspecified; I5A Non-ischemic myocardial injury (non-traumatic); J44.0 Chronic obstructive pulmonary disease with (acute) lower respiratory infection; R65.20 Severe sepsis without septic shock; E03.9 Hypothyroidism, unspecified; E11.9 Type 2 diabetes mellitus without complications; E78.2 Mixed hyperlipidemia; I11.0 Hypertensive heart disease with heart failure; I48.91 Unspecified atrial fibrillation
CPT/HCPCS: 31500; 36415; 51702; 70450; 71045; 71275; 75574; 80048; 80053; 81001; 82803; 82962; 83036; 83605; 83735; 83880; 84100; 84145; 84439; 84443; 84484; 85007; 85025; 85610; 85651; 86140; 87040; 87070; 87205; 87265; 87278; 87486; 87581; 87632; 87635; 87636; 87641; 92610; 92950; 93005; 93306; 94640; 94760; 94761; 97116; 97165; 97530; 99291; J0131; J0282; J0692; J1200; J1650; J1940; J1956; J2704; J7030; J7060; J7620; Q9957; Q9967

== ENCOUNTER 2024-08-01 13:27 | Outpatient (CLI) | payer MEDICARE, SELFPAY ==
--- NOTE | 2024-08-01 13:31 | CA_ITS ---
APPROVED REPORT EXAM: Comprehensive 2D, Doppler, and color-flow Echocardiogram Shipyard Supervisor: Wendy New RDCS Ht: 5 ft 4 in Wt: 154lbs BSA: 1.75 BP: 143/68 mmHg Indications: EF CHECK M-Mode Dimensions RVDd 1.10 cm (0.9-2.6) LA Diam 4.88 cm (1.9-4.0) LVDd 6.46 cm (3.5-5.7) LVDs 5.02 cm (3.5-5.7) IVSd 0.91 cm (0.6-1.1) PWd 0.76 cm (0.6-1.1) EF (Teich) 44.00% FS 22.30% EDV (Teich) 213.00 mL ESV (Teich) 119.30 mL Other Information Study Quality: Fair Conclusion This is a limited TTE to evaluate for LV systolic function. Limited windows were obtained. There are left ventricle is normal in size. There is increased LV wall thickness. There is normal LV global systolic function. No regional wall motion abnormalities are noted. LVEF is 60%. Compared to prior study from 06/27/2024, the LVEF has improved and is now normal. The previously visualized wall motion abnormalities are no longer present. Electronically signed by : Connie Chong MD 08/01/2024 14:12:01
== END 2024-08-01 23:59 | disposition home or self-care (01) ==
LOC: RT 13:28
PROVIDERS: PCP Family Medicine; Visit Provider Physician Assistant
DX: I50.21 Acute systolic (congestive) heart failure (principal); I42.8 Other cardiomyopathies
CPT/HCPCS: 93308

== ENCOUNTER 2024-08-09 11:37 | Outpatient (CLI) | payer MEDICARE, SELFPAY | END 2024-08-09 23:59 | disposition home or self-care (01) | LOC: RT 11:38 | PROVIDERS: PCP Family Medicine; Visit Provider Physician Assistant | DX: I48.0 Paroxysmal atrial fibrillation (principal) | CPT/HCPCS: 93225; 93227 ==

== ENCOUNTER 2024-08-11 10:57 | Outpatient (CLI) | payer MEDICARE, SELFPAY | END 2024-08-11 23:59 | disposition home or self-care (01) | LOC: RT 10:58 | PROVIDERS: PCP Family Medicine; Visit Provider Internal Medicine Adolescent Medicine | DX: I48.0 Paroxysmal atrial fibrillation (principal); I48.92 Unspecified atrial flutter | CPT/HCPCS: 93270 ==

== ENCOUNTER 2024-09-20 12:45 | Outpatient (CLI) | payer MEDICARE, SELFPAY ==
[2024-09-20] MEDS: ALBUTEROL 0.083% 2.5 MG/3 ML NEB IH (15:30)
== END 2024-09-20 23:59 | disposition home or self-care (01) ==
LOC: RT 12:46
PROVIDERS: PCP Family Medicine; Visit Provider Internal Medicine Pulmonary Disease
DX: R06.09 Other forms of dyspnea (principal)
CPT/HCPCS: 94060; 94618; 94726; 94729; J7613

== ENCOUNTER 2025-01-19 08:46 | Outpatient (CLI) | payer MEDICARE, SELFPAY | END 2025-01-19 23:59 | disposition home or self-care (01) | LOC: RT 08:46 | PROVIDERS: PCP Family Medicine; Visit Provider Internal Medicine Pulmonary Disease | DX: R06.02 Shortness of breath (principal) | CPT/HCPCS: 94618 ==

== ENCOUNTER 2025-06-30 09:46 | Outpatient (CLI) | payer MEDICARE, SELFPAY ==
--- OUTSIDE RECORDS SUMMARY | 2025-06-30 09:48 | XMS_ITS | Clinical Summary ---
Author Organization [facility] Address [address] [facility] [place] [address] Phone Care Team Providers Care Sheet Metal Lay Out Worker Name Role Phone Amilcar Sher MD Primary Care Provider [phone] Allergies Active Allergy Reactions Criticality Noted Date Comments Penicillins 03/11/2012 Promethazine 03/11/2012 Medications ibuprofen (ADVIL;MOTRIN) 800 mg Take 1 Tab by mouth every 8 hours as needed for 20 doses. 20 Tab 0 03/11/2012 Active methocarbamol (ROBAXIN) 500 mg tablet Take 1 Tab by mouth 4 times daily as needed for Muscle spasms. 15 Tab 0 03/11/2012 Active Immunizations Immunization Administration Dates Next Due Tdap 03/11/2012 Medical History Medical History Date Comments Atrial fibrillation (HCC) Social History Tobacco Use Types Packs/Day Years Used Date Smoking Tobacco: Every Day Alcohol Use Standard Drinks/Week Comments No 0 (1 standard drink = 0.6 oz pur e alcohol) Comments Unknown Sex and Gender Information Value Date Recorded Sex Assigned at Not on file Legal Sex Female 4:31 AM EDT Gender Identity Not on file Sexual Orientation Not on file Last Filed Vital Signs Vital Sign Reading Time Taken Comments Blood Pressure 121/69 03/11/2012 4:27 PM EDT Pulse 82 03/11/2012 4:27 PM EDT Temperature 37 C (98.6 F) 03/11/2012 2:49 PM EDT Respiratory Rate 20 03/11/2012 4:27 PM EDT Oxygen Saturation 98% 03/11/2012 2:49 PM EDT Inhaled Oxygen Concentration - - Weight 75.8 kg (167 lb) 03/11/2012 2:49 PM EDT Height - - Body Mass Index - - Plan of Treatment Health Maintenance Due Date Last Done Comments Annual Wellness Exam 11/03/1953 Hepatitis C Screening 1966 Pneumococcal Vaccine 50+ (1 of 1 - PCV) 1998 Zoster (1 of 2) 1998 Bone Density Screening 2013 DTaP/TDaP/Td (2 - Td or Tdap) 03/11/2022 03/11/2012 RSV or 60+ (1 - 1-d ose 75+ series) 11/03/2023 COVID-19 Vaccine (2024-2 6 season) 2025 Influenza Vaccine (#1) 2025 Hepatitis B Vaccine Aged Out No longe r eligible based on patient's age to complete this topic Meningococcal B Vaccine Aged Out No l onger eligible based on patient's age to complete this topic Insurance O MEDICARE [place] PART A AND B [employer] INS AA [facility] PPO MEDICARE [place] PART A AND B Care Teams Sheet Metal Lay Out Worker Relationship Specialty Start Date End Date Amilcar Sher MD [address] [place] [address] PCP - General 03/11/12
--- OUTSIDE RECORDS SUMMARY | 2025-06-30 09:48 | XMS_ITS | Clinical Summary ---
Author Organization [facility] Address [address] [place] [address] Care Team Providers Care Galley Cook Name Role Phone Amilcar Sher MD Primary Care Provider [phone] Allergies Active Allergy Reactions Criticality Noted Date Comments Penicillins Hives Medium 03/11/2012 Promethazine Hives Medium 03/11/2012 Medications levothyroxine (Synthroid, Levoxyl) 50 MCG tablet take 1 tablet by mouth every morning on an empty stomach 5 Active PARoxetine (Paxil) 30 MG tablet Take 1 tablet by mouth every morning. 5 Active gabapentin (Neurontin) 800 MG tablet Take 1 tablet by mouth 3 times a day. 5 Active atorvastatin (Lipitor) 10 MG tablet Take 1 tablet by mouth daily. 5 Active rOPINIRole (Requip) 1 MG tablet Take 1 tablet by mouth 2 times a day. 5 Active carvedilol (Coreg) 12.5 MG tablet TAKE 1 TABLET BY MOUTH TWICE DAILY WITH A MEAL/FOOD 4 Active EQ Aspirin Low Dose 81 MG chewable tablet Chew 1 tablet. 4 Active Soliqua 100-33 UNT-MCG/ML solution pen-injector INJECT 40 UNITS SUBCUTANEOUSLY IN THE MORNING 4 Active Easy Touch Pen Hammond 31G X 6 MM misc 2 times a day. 5 Active lisinopril 40 MG tablet Take 1 tablet by mouth daily. 5 Active metoprolol succinate XL (Toprol-XL) 25 MG 24 hr tablet Take 1 tablet by mouth daily. 4 Active Vibegron (Gemtesa) 75 MG tabletIndicati ons:Urge incontinence,U rinary frequency,Noct uria,Urinary urgency Take 75 mg by mouth daily. 30 tablet 2 5 Active Active Problems No known active problems Social History Tobacco Use Types Packs/Day Years Used Date Smoking Tobacco: Never Passive Smoke Exposure: Never Smokeless Tobacco: Never Tobacco Cessation:Counseling Given: Not Answered Alcohol Use Standard Drinks/Week Comments Never 0 (1 standard drink = 0.6 oz pur e alcohol) PHQ-2 Answer Date Recorded Patient Health Questionnaire-2 Score 0 02/14/2025 PHQ-9 Answer Date Recorded Patient Health Questionnaire-9 Score 0 02/14/2025 Comments No Sex and Gender Information Value Date Recorded Sex Assigned at Not on file Legal Sex Female 7:38 PM EDT Gender Identity Not on file Sexual Orientation Not on file Last Filed Vital Signs Vital Sign Reading Time Taken Comments Blood Pressure 109/67 02/14/2025 1:54 PM EDT Pulse 63 02/14/2025 1:54 PM EDT Temperature 36.3 C (97.3 F) 02/14/2025 1:54 PM EDT Respiratory Rate 15 02/14/2025 1:54 PM EDT Oxygen Saturation - - Inhaled Oxygen Concentration - - Weight 67.6 kg (149 lb) 02/14/2025 1:54 PM EDT Height 154.9 cm (5' 1 ) 02/14/2025 1:54 PM EDT Body Mass Index 28.15 02/14/2025 1:54 PM EDT Plan of Treatment Health Maintenance Due Date Last Done Comments [facility]-Bone Density Scan 1948 [facility]-Hepatitis C Screening 1950 [facility]-Medicare Annual Wellness (AWV) 1950 [facility]-/Child/Adol SDOH Screenings 1950 [facility]- SDOH Screenings 1966 [facility]-Adult SDOH Screenings 1966 [facility]-Pneumococcal Vaccine: 50+ Years (1 of 1 - PCV) 1998 [facility]-Zoster Vaccines (1 of 2) 1998 [facility]-RSV Vaccine: 60+ Years or (1 - 1-dose 75+ series) 11/03/2023 [id number] Vaccine (2024- season) 2025 07/08/2023, 07/01/2022, 07/15/2021, Additional history exists [facility]-Influenza Vaccine (#1) 2025 [facility]-Depression Screening 02/14/2026 02/14/2025, 01/29 [facility]-DTaP,Tdap,and Td Vaccines (3 - Td or Tdap) 07/11/2031 07/11/2021, 03/11/2012 [facility]-Hepatitis A Vaccines Aged Out 02/26/2019, 07/31 No longer eligible based on patient's age to complete this topic [facility]-Obesity Intervention Completed 02/14/2025 HPV Vaccines Aged Out No longer eligi ble based on patient's age to complete this topic [facility]-HIB Vaccines Aged Out No longer e ligible based on patient's age to complete this topic [facility]-IPV Vaccines Aged Out No longer e ligible based on patient's age to complete this topic [facility]-Rotavirus Vaccines Aged Out No lo nger eligible based on patient's age to complete this topic Insurance MEDICARE Care Teams Galley Cook Relationship Specialty Start Date End Date Amilcar Sher MD [address] [place] [address] PCP - General 01/26/25
[2025-06-30] MEDS: ALBUTEROL 0.083% 2.5 MG/3 ML NEB IH (10:37)
== END 2025-06-30 23:59 | disposition home or self-care (01) ==
LOC: RT 09:46
PROVIDERS: PCP Family Medicine; Visit Provider Internal Medicine Pulmonary Disease
DX: R94.2 Abnormal results of pulmonary function studies (principal); R06.09 Other forms of dyspnea; R06.02 Shortness of breath
CPT/HCPCS: 94010; 94618